=== PATIENT | male | born 1970 | race African-American/Black ===

== ENCOUNTER → 2016-12-25 | Outpatient (CLI) | payer MEDICARE ==
[2016-12-25 16:31] VITALS: BP 138/77; PULSE 62; RESP 16; TEMP 97.9; BMI 34.7
--- NOTE | 2017-01-05 12:16 | P.PN ---
Progress Note - Text DATE OF CONSULTATION: 12/25/2016. CHIEF COMPLAINT: Initial Bariatric Center assessment. HISTORY OF PRESENT ILLNESS: Eduardo Glover a 46-year-old gentleman with a personal history of Jeremy-en-Y gastric bypass performed to [facility]. His highest weight for 5 feet 7-3/4 inches was 420 pounds. This was performed in 2009. His lowest weight was 175 pounds. He comes in today weighing 227 pounds. He has maintained 193 pounds weight loss in the past 7 years. Percent excess weight loss is 74%. Body mass index has been reduced from 64.5 down to 37.8. Overall he has actually regained about 52 pounds from his lowest weight. He reports that at the time of his procedure, within a month of his surgery, he had to leave the [facility] and did not have a structured bariatric follow-up. He actually presented to a local hospital with a bowel obstruction and had required open procedure. Since then he reports over the last 7 years developing new onset tremors of the hands. He also reports troubles with neuropathy. He has been referred to a neurologist. He has had up with bariatric surgeon. He also reports some troubles with his gallbladder whereby he has history of biliary dyskinesia. As a result of his bariatric surgery, he has difficulty obtaining a general surgical evaluation. He also reports prior to his weight loss surgery, he was a diabetic on metformin. This is now resolved. He also has obstructive sleep apnea, which is completely resolved. Initially he was off all blood pressure medications, which he has now restarted. He reports heartburn with certain foods, especially ham and roast beef. He reports after eating he has immediate diarrhea. He has hair loss. He reports poor intake of daily protein. He now presents for further evaluation and management. He also reports lower back pain secondary to herniated discs. PAST MEDICAL HISTORY: 1. Diabetes type 2, resolved. 2. Obstructive sleep apnea resolved. 3. Osteoarthritis of the lower back. 4. Herniated disc of lower back. 5. Hypertension. 6. Neuropathy. 7. Depression. 8. Previous history of bowel obstruction. PAST SURGICAL HISTORY: 1. Laparoscopic Jeremy-en-Y gastric bypass in [place] in 2009. Highest weight of 420 pounds. 2. Open small bowel lysis of adhesions. MEDICATIONS: 1. Multivitamin. 2. Zoloft. 3. Zestril. ALLERGIES: Denies. SOCIAL HISTORY: Denies any active tobacco use. FAMILY HISTORY: Pertinent for morbid obesity including hypertension. Denies any gallbladder disorders. REVIEW OF SYSTEMS: CONSTITUTIONAL: 420 pounds for 5 foot 7 and 3/4-inch frame. Initial body mass index is 64.5. His lowest weight 175 pounds. He has regained 52 pounds. Percent excess weight loss is 74%. Body mass index is 34.8. [place] body weight of 5 foot 7 and quarter inch frame is 158 pounds. Body mass index reduced total BMI points of 30. HEENT: Denies any active troubles with vision or hearing. He denies any active dysphagia. ENDOCRINE: History of diabetes, type II, resolved. Denies any thyroid disorders. RESPIRATORY: Prior history of obstructive sleep apnea now completely resolved. Denies any dyspnea on exertion. No recent pneumonias. CARDIOVASCULAR: Denies any recent chest pain or heart attack. He did have severe hypertension which initially resolved since his surgery; however, now he has been restarted on medication. GASTROINTESTINAL: Reports biliary dyskinesia with a known problematic ejection fraction of his gallbladder. Also reports diarrhea after eating. Protein intake has been suboptimal under 80 grams daily. MUSCULOSKELETAL: He has herniated disc of the lower back. Denies any numbness however, has osteoarthritis in his joints. NEURO: No reports of stroke or seizure disorder. PSYCH: History of depression without suicidal ideation. HEMATOLOGIC: No reports of easy bruising or bleeding. PHYSICAL EXAM: VITAL SIGNS: 97.9, 62, 16, 130/77; 5 feet 7-3/4 inches frame, 227 pounds. Body mass is 34.8. GENERAL: Well-developed male in no acute distress. HEENT: No scleral icterus. Extraocular movements grossly intact. Moist buccal mucosa. Neck is supple without lymphadenopathy. CHEST: Nonlabored respirations. Equal bilateral excursions. CARDIOVASCULAR: Regular rate and rhythm. ABDOMEN: Soft, nontender, nondistended. Well healed upper midline incision with laparoscopic incisions along the upper abdomen. MUSCULOSKELETAL: No clubbing, cyanosis, or edema. NEURO: Cranial nerves II through XII grossly intact. No focal or lateralizing signs. He has resting tremors of the bilateral upper extremities. PSYCH: Appropriate affect. Alert and oriented to person, place, and time. SKIN: On exam his pannus weighed at least 10 pounds and over the pubis by over 6 cm. He has hyperpigmentation consistent with panniculitis. LABS: Labs pending at this time. ASSESSMENT: 1. Morbid obesity due to excess calories. 2. Body mass index reduced from 64.5 down to 34.8. 3. Status post weight regain 52 pounds following Jeremy-en-Y gastric bypass. 4. History of essential tremors. 5. Neuropathy secondary to Vitamin B deficiency. 6. Obstructive sleep apnea resolved. 7. Rvc-[id number] diabetes, resolved. 8. Essential hypertension. 9. Gastroesophageal reflux disease. 10. Dysphagia. 11. Biliary dyskinesia with chronic cholecystitis. 12. Osteoporosis with herniated disc of the lower back. 13. Dietary surveillance and counseling. 14. Panniculitis. 15. Inadequate protein intake. 16. Hair loss. PLAN: 1. On exam his pannus weighed at least 10 pounds and over the pubis by over 6 cm. He has hyperpigmentation consistent with panniculitis. We may evaluate for panniculectomy once his nutritional assessment is resolved. 2. He does report troubles with hair loss and this is also in the form of nutritional deficiencies secondary to inadequate protein intake. I have recommended bariatric metabolic panel. Once he has complete correction of his protein sources including multivitamin then he may consider other options. 3. He has symptomatic biliary dyskinesia for which a laparoscopic cholecystectomy was also reviewed. 4. He may need also upper endoscopy as he reports heartburn especially dysphagia to solid foods. I did review with him this may be signs of gastrojejunal ulcer and/or stricture, which may be evaluated with an upper endoscopy. 5. Recommend evaluation of bariatric dietitian regarding his baseline intake. This will be followed up closely at least for the next month or 2. Thank you very much for this kind consultation.
== END | disposition home or self-care (01) ==
LOC: BARWHC3 15:33
PROVIDERS: ATTEND Surgery Plastic and Reconstructive Surgery
DX: E66.01 Morbid (severe) obesity due to excess calories (principal); E21.1 Secondary hyperparathyroidism, not elsewhere classified; D50.8 Other iron deficiency anemias; E44.0 Moderate protein-calorie malnutrition; E55.9 Vitamin D deficiency, unspecified; K74.1 Hepatic sclerosis; N19 Unspecified kidney failure; K50.90 Crohn's disease, unspecified, without complications; I10 Essential (primary) hypertension; K21.9 Gastro-esophageal reflux disease without esophagitis; R13.10 Dysphagia, unspecified; K82.8 Other specified diseases of gallbladder; K81.1 Chronic cholecystitis; M51.26 Other intervertebral disc displacement, lumbar region; M79.3 Panniculitis, unspecified; M47.896 Other spondylosis, lumbar region; G62.9 Polyneuropathy, unspecified; F32.9 Major depressive disorder, single episode, unspecified; G25.0 Essential tremor; E53.9 Vitamin B deficiency, unspecified; L65.9 Nonscarring hair loss, unspecified; M47.9 Spondylosis, unspecified; M81.0 Age-related osteoporosis without current pathological fracture; Z71.3 Dietary counseling and surveillance; Z51.89 Encounter for other specified aftercare; Z68.34 Body mass index [BMI] 34.0-34.9, adult; Z98.84 Bariatric surgery status; Z79.899 Other long term (current) drug therapy
CPT/HCPCS: 99211

== ENCOUNTER → 2016-12-26 | Outpatient (CLI) | payer MEDICARE ==
[2016-12-26 09:05] LABS: CHCM 31.6; HCT 41.7 % (39.0-53.0); HDW 2.67; Hypochromasia Slight; MCH 26.8 pg (25.0-35.0); MCHC 31.1 g/dL (31.0-37.0); MCV 86.1 fL (80.0-100.0); Mean Platelet Volume 6.2; RBC 4.84 m/uL (4.30-5.90); RDW 14.7 % (11.5-15.5); WBC 5.4 k/uL (3.8-10.6)
[2016-12-26 09:12] LABS: INR 1.1 (<1.1)
[2016-12-26 09:13] LABS: Partial Thromboplastin Time 24.1 sec (22.0-30.0); Prothrombin Time 11.2 sec (9.0-12.0)
[2016-12-26 10:46] LABS: ALT 48 U/L (21-72); AST 35 U/L (17-59); Alkaline Phosphatase 71 U/L (38-126); Anion Gap 9 mmol/L; Blood Urea Nitrogen 26 mg/dL (9-20); Calcium 9.6 mg/dL (8.4-10.2); Carbon Dioxide 27 mmol/L (22-30); Chloride 105 mmol/L (98-107); Cholesterol 181 mg/dL (<200); Glucose 88 mg/dL (74-99); HDL Cholesterol 82 mg/dL (40-60); Iron 71 ug/dL (49-181); Magnesium 1.8 mg/dL (1.6-2.3); Non-African American GFR(MDRD) >60 (>60 ml/min/1.73 sqM); Phosphorous 4.6 mg/dL (2.5-4.5); Potassium 4.8 mmol/L (3.5-5.1); Sodium 141 mmol/L (137-145); Total Bilirubin 0.5 mg/dL (0.2-1.3); Triglycerides 36 mg/dL (<150)
[2016-12-26 11:07] LABS: % Iron Saturation 20.2 % (20-50); Prealbumin 27 mg/dL (18-36); Total Iron Binding Capacity 352 ug/dL (261-462)
[2016-12-26 11:51] LABS: Vitamin B12 708 pg/mL (239-931)
[2016-12-27 08:25] LABS: Hemoglobin A1C 5.9 % (4.2-6.1)
[2016-12-28 22:19] LABS: Selenium 152 mcg/L (63-160)
== END | disposition home or self-care (01) ==
LOC: LABWHC1 08:06
PROVIDERS: ATTEND Surgery Plastic and Reconstructive Surgery
DX: E21.1 Secondary hyperparathyroidism, not elsewhere classified (principal); E89.1 Postprocedural hypoinsulinemia; D50.8 Other iron deficiency anemias; E66.01 Morbid (severe) obesity due to excess calories; K90.89 Other intestinal malabsorption; E55.9 Vitamin D deficiency, unspecified; K74.1 Hepatic sclerosis; N19 Unspecified kidney failure; K50.90 Crohn's disease, unspecified, without complications
CPT/HCPCS: 36415; 80053; 80061; 82306; 82525; 82607; 82728; 82746; 83036; 83540; 83550; 83735; 83970; 84100; 84134; 84255; 84425; 84443; 84590; 84630; 85027; 85610; 85730

== ENCOUNTER → 2017-01-09 | Outpatient (CLI) | payer MEDICARE ==
[2017-01-09 09:10] VITALS: BP 142/75; PULSE 60; RESP 16; TEMP 98.2; BMI 34.2
--- NOTE | 2017-02-27 05:42 | P.PN ---
Progress Note - Text DATE OF SERVICE: 01/09/2017 CHIEF COMPLAINT: Bariatric assessment. HISTORY OF PRESENT ILLNESS: Eduardo Glover is a 46-year-old gentleman with a gastric bypass in 2009. At his height of 5 feet 7-3/4 inches frame he had weighed 420 pounds. Today he comes in weighing 223 pounds. He has maintained 197 pound weight loss. Since his visit with us 2 weeks ago, he has actually lost another 4 pounds. His body mass index has been reduced from 64.5 down of 34.2. Percent excess weight loss is 75%. Separately, he comes in with known history of gallbladder disorder. With his history of gastric bypass, he had some challenges for treatment. Also, he reports history of neuropathy. He has not had a recent bariatric work-up and now presents for further evaluation and management. He also reports some intolerance and dysphagia to solid foods. PAST MEDICAL HISTORY: 1. Diabetes type 2, resolved. 2. Obstructive sleep apnea resolved. 3. Osteoarthritis of the lower back. 4. Herniated disc of lower back. 5. Hypertension. 6. Neuropathy. 7. Depression. 8. Previous history of bowel obstruction. 9. Biliary dyskinesia. PAST SURGICAL HISTORY: 1. Laparoscopic Jeremy-en-Y gastric bypass in [place] in 2009. Highest weight of 420 pounds. 2. Open small bowel lysis of adhesions. MEDICATIONS: 1. Multivitamin. 2. Zoloft. 3. Zestril. ALLERGIES: Denies. SOCIAL HISTORY: Denies any active tobacco use. FAMILY HISTORY: Pertinent for morbid obesity including hypertension. Denies any gallbladder disorders. REVIEW OF SYSTEMS: CONSTITUTIONAL: 420 pounds for 5 foot 7 and 3/4-inch frame. Initial body mass index is 64.5. His lowest weight 175 pounds. Body mass index reduced from 64.5 down of 34.2. Percent excess weight loss is 75%. Additional weight loss of 4 pounds in 2 weeks. [place] body weight of 158 pounds. Total weight loss of 197 pounds. HEENT: Denies any active troubles with vision or hearing. He denies any active dysphagia. ENDOCRINE: History of diabetes, type II, resolved. Denies any thyroid disorders. RESPIRATORY: Prior history of obstructive sleep apnea now completely resolved. Denies any dyspnea on exertion. No recent pneumonias. CARDIOVASCULAR: Denies any recent chest pain or heart attack. He did have severe hypertension which initially resolved since his surgery; however, now he has been restarted on medication. GASTROINTESTINAL: Reports biliary dyskinesia with a known problematic ejection fraction of his gallbladder. Also reports diarrhea after eating. Protein intake has been suboptimal under 80 grams daily. MUSCULOSKELETAL: He has herniated disc of the lower back. Denies any numbness however, has osteoarthritis in his joints. NEURO: No reports of stroke or seizure disorder. PSYCH: History of depression without suicidal ideation. HEMATOLOGIC: No reports of easy bruising or bleeding. PHYSICAL EXAM: VITAL SIGNS: 98.2, 60,16, 142/75, 5 foot 7-3/4 inch frame, 223 pounds. Body mass index 34.2. ABDOMEN: Soft, mild tenderness along epigastrium. No incisional hernia. Moderate size pannus of weight over 10 to 15 pounds. Hyperpigmentation and inflammation consistent with panniculitis. Skin hangs over pubis over 8 cm. GENERAL: Well-developed male in no acute distress. HEENT: No scleral icterus. Extraocular movements grossly intact. Moist buccal mucosa. Neck is supple without lymphadenopathy. CHEST: Nonlabored respirations. Equal bilateral excursions. CARDIOVASCULAR: Regular rate and rhythm. ABDOMEN: Soft, nontender, nondistended. Well healed upper midline incision with laparoscopic incisions along the upper abdomen. MUSCULOSKELETAL: No clubbing, cyanosis, or edema. NEURO: Cranial nerves II through XII grossly intact. No focal or lateralizing signs. He has resting tremors of the bilateral upper extremities. PSYCH: Appropriate affect. Alert and oriented to person, place, and time. LABS: Bariatric metabolic panel was reviewed demonstrating hemoglobin normal at 13. BUN was elevated at 26. Creatinine was normal at 1.1. Phosphorus is elevated at 4.6. Magnesium was low normal at 1.8. HDL was elevated at 82. ASSESSMENT: 1. Morbid obesity due to excess calories, improved. 2. Body mass index reduced from 64.5 down to 34.2. 3. Status post weight regain 52 pounds following Jeremy-en-Y gastric bypass. 4. History of essential tremors. 5. Neuropathy secondary to Vitamin B deficiency. 6. Obstructive sleep apnea resolved. 7. Idx-ubudxgs-ngrnyrfnn diabetes, resolved. 8. Essential hypertension. 9. Gastroesophageal reflux disease. 10. Dysphagia. 11. Biliary dyskinesia with chronic cholecystitis. 12. Osteoarthritis with herniated disc of the lower back. 13. Dietary surveillance and counseling. 14. Panniculitis. 15. Inadequate protein intake. 16. Hair loss. 17. Status post massive weight loss of 197 pounds. 18. Intermittent dysphagia to solid foods. 19. Hyperphosphatemia. PLAN: 1. On review of his laboratory results, he has no nutritional deficiencies which is excellent despite not having a structured bariatric followup in well over 3 to 5 years. 2. On exam, he does have moderate size pannus of between 10 to 15 pounds with hyperemia consistent with panniculitis. Recommend treatment with nystatin powder. 3. With his history of biliary dyskinesia including massive weight loss, I agree with laparoscopic cholecystectomy. With his previous history of open abdominal surgery, will likely need lysis of adhesions. 4. He has history of dysphagia, also recommend upper endoscopy. 5. Continue with a multivitamin in the interim. 6. DVT prophylaxis. 7. Antibiotic prophylaxis. 8. Anticipated postoperative recovery a minimum of 2 weeks.
== END | disposition home or self-care (01) ==
LOC: BARWHC3 08:55
PROVIDERS: ATTEND Surgery Plastic and Reconstructive Surgery
DX: R06.83 Snoring (principal); G47.00 Insomnia, unspecified
CPT/HCPCS: 99211

== ENCOUNTER 2017-01-17 07:03 | Day surgery (SDC) | payer MEDICARE ==
[2017-01-15 14:22] VITALS: BMI 34.0
--- NOTE | 2017-01-16 18:02 | P.PN ---
Progress Note - Text I contacted the patient regarding any questions for his laparoscopic cholecystectomy. His answered. Patient is suspected to be present on day of surgery at approximate 730 in morning.
--- NOTE | 2017-01-17 06:34 | P.GSHP ---
History of Present Illness H&P Date: 01/17/17 CHIEF COMPLAINT: Cholecystitis and GERD HISTORY OF PRESENT ILLNESS: The patient is a 46-year-old male who presents with history of epigastric including right upper quadrant abdominal pain. He underwent diagnostic studies for her gallbladder. Separately his clinical picture is consistent with cholecystitis. Now he presents for surgical intervention and upper endoscopy. PAST MEDICAL HISTORY: Please see list PAST SURGICAL HISTORY: Please see list MEDICATIONS: Please see list ALLERGIES: Denies. SOCIAL HISTORY: No illicit drug use or recent tobacco use FAMILY HISTORY: Pertinent for gallbladder disease REVIEW OF ORGAN SYSTEMS: CONSTITUTIONAL: No reports of fevers or chills. HEENT: Denies any troubles with the vision or hearing. ENDOCRINE: No reports of hypothyroidism. Had diabetes. RESPIRATORY: No recent pneumonias. CARDIOVASCULAR: Denies chest pain or palpitations GI: No blood in stools or constipation. MUSCULOSKELETAL: Has occasional joint pain including back pain. NEURO: No seizure disorders or headaches. No recent stroke. PSYCH: No depression or suicidal ideation. HEMATOLOGIC: No personal or family history of DVTs or pulmonary emboli. PHYSICAL EXAM: VITAL SIGNS: Afebrile vital signs stable GENERAL: Well-developed pleasant male in no acute distress. HEENT: No scleral icterus. Extraocular movements grossly intact. Moist buccal mucosa. NECK: Supple without lymphadenopathy. CHEST: Unlabored respirations. Equal bilateral excursions. CARDIOVASCULAR: Regular rate regular rhythm rhythm. Distal 2+ pulses. ABDOMEN: Soft, nondistended. Tender along the epigastrium and right upper quadrant. MUSCULOSKELETAL: No clubbing, cyanosis, or edema. NEURO :Moves all extremities 4+/5. PSYCH: Alert and oriented to person, place and time. ASSESSMENT: 1. Epigastric and right upper quadrant abdominal pain 2. Chronic cholecystitis 3. GERD. PLAN: 1. Will need a laparoscopic cholecystectomy possible open. Benefits and risks were described. 2. Heparin for DVT prophylaxis 5000 units. 3. Antibiotic prophylaxis. 4. Also will proceed with upper endoscopy. Past Medical History Past Medical History: GERD/Reflux, Hypertension Additional Past Medical History / Comment(s): ABDOMINAL PAIN, NAUSEA, HX OF BACK PAIN, PREVIOUS SLEEP APNEA, PREVIOUS DIABETES, NONE NOW SINCE WEIGHT LOSS, NEUROPATHY, TREMORS, History of Any Multi-Drug Resistant Organisms: None Reported Past Surgical History: Appendectomy, Bariatric Surgery, Orthopedic Surgery, Tonsillectomy Additional Past Surgical History / Comment(s): carpal tunnel surgery right, PEDRO -N-Y 2009 IN [place], right shoulder surgery anastomosis SMALL BOWEL LYSIS OF ADHESIONS R/T SMALL BOWEL OBSTRUCTION Past Anesthesia/Blood Transfusion Reactions: No Reported Reaction Past Psychological History: Depression Smoking Status: Never smoker Past Alcohol Use History: None Reported Past Drug Use History: None Reported - Past Family History Mother Family Medical History: No Reported History Medications and Allergies Home Medications Medication Instructions Recorded Confirmed Type Lisinopril [Zestril] 1 tab PO DAILY 12/25/16 01/15/17 History Multivitamins, Thera [Multivitamin] 1 tab PO DAILY 12/25/16 01/15/17 History Sertraline [Zoloft] 1 tab PO DAILY 12/25/16 01/15/17 History ALPRAZolam [Xanax] 0.5 mg PO DIRECTED PRN 01/15/17 01/15/17 History Allergies Allergy/AdvReac Type Severity Reaction Status Date / Time No Known Allergies Allergy Verified 01/15/17 14:33
[~2017-01-17 07:03] MED LIST: ACETAMINOPHEN IV (For NPO) 1,000 MG in EMPTY BAG 1 BAG IVPB ONE; DEXAMETHASONE SOD PHOSPHATE 10 MG/ML 1 ML VIAL IV ONE; HEPARIN SODIUM,PORCINE 5,000 UNIT/ML 1 ML VIAL SQ ONE; LACTATED RINGERS 1,000 ML IV SCH; MIDAZOLAM 2 MG/2 ML VIAL IV PRN; ONDANSETRON 4 MG/2 ML VIAL IVP ONE; SCOPOLAMINE 1.5MG/72HR PATCH TRANSDERM ONE; ceFAZolin 2 GM in SODIUM CHLORIDE 0.9% 100 ML IVPB ONE
[2017-01-17 07:26] VITALS: TEMP 98
[2017-01-17] MEDS ORDERED: LIDOCAINE 1% 20 ML VIAL (10MG/ML) FOR IV START INTRADERMA ONE (07:33)
[2017-01-17] MEDS ORDERED: NEOSTIGMINE 1 MG/ML 10 ML VIAL ONE (09:03)
[2017-01-17] MEDS ORDERED: LIDOCAINE 1% INJ 10MG/ML (20 ML MDV) ONE (09:03)
[2017-01-17] MEDS ORDERED: ePHEDrine 50 MG/ML 1 ML AMP ONE (09:03)
[2017-01-17] MEDS ORDERED: HYDROmorphone (PF) 1 MG/ML ONE (09:03)
[2017-01-17] MEDS ORDERED: GLYCOPYRROLATE 0.2 MG/ML 2 ML VIAL ONE (09:03)
[2017-01-17] MEDS ORDERED: PROPOFOL 10 MG/ML 20 ML VIAL IV ONE (09:03)
[2017-01-17] MEDS ORDERED: fentaNYL (PF) 50 MCG/ML 2 ML AMP ONE (09:03)
[2017-01-17] MEDS ORDERED: ROCURONIUM BROMIDE 10 MG/ML 10 ML VIAL IV ONE (09:03)
[2017-01-17] MEDS ORDERED: SUCCINYLCHOLINE CHLORIDE 100 MG/5 ML SYR IV ONE (09:03)
[2017-01-17] MEDS ORDERED: MIDAZOLAM 2 MG/2 ML VIAL ONE (09:03)
[2017-01-17] MEDS ORDERED: BUPIVACAIN-EPI 0.25%-1:200,000 30 ML VIAL SQ ONE ×2 (09:23→09:26)
[2017-01-17] MEDS ORDERED: LACTATED RINGERS 1,000 ML IV ONE (10:03)
--- NOTE | 2017-01-17 10:44 | P.PCN ---
Date of Procedure: 01/17/17 Preoperative Diagnosis: Biliary dyskinesia, history of massive weight loss over 200 pounds, status post gastric bypass, epigastric abdominal pain Postoperative Diagnosis: Same, chronic cholecystitis, severe intra-abdominal adhesions greater omentum to anterior abdominal wall and interloop adhesions epigastrium and right upper quadrant, left inguinal hernia, gastric ulcer Procedure(s) Performed: Laparoscopic lysis of adhesions over 1 hour, laparoscopic cholecystectomy, intraoperative esophagogastrojejunoscopy Anesthesia: GETA, local (60 mL) Surgeon: Emily Rodriguez Estimated Blood Loss (ml): 5 Pathology: other (Gallbladder) Condition: stable Disposition: same day Operative Findings: Decompression of the gallbladder, severe intra-abdominal adhesions over 1 hour extensive laparoscopic lysis of adhesions
[2017-01-17] MEDS ORDERED: HYDROcodone/APAP 5-325MG 1 EACH TAB PO PRN (10:48)
[2017-01-17] MEDS ORDERED: PROMETHAZINE 25 MG TAB PO PRN (10:48)
[2017-01-17] MEDS ORDERED: ONDANSETRON 4 MG/2 ML VIAL IVP PRN (10:48)
[2017-01-17] MEDS ORDERED: ALPRAZolam 0.5 MG TAB PO PRN (10:48)
[2017-01-17] MEDS ORDERED: NALOXONE 0.4 MG/ML 1 ML VIAL IV PRN (10:48)
[2017-01-17] MEDS: HYDROmorphone 1 MG/ML 1 ML SYRINGE IVP PRN ×2 (11:24→11:46)
--- NOTE | 2017-01-17 11:30 | P.PN ---
Progress Note - Text To whom it may concern: Eduardo Glover is under my surgical care. He will need time off for recovery through January 24. He may return to work with restrictions of no lifting over 4 pounds until January 31 when he will be free of restrictions. Regards, Emily Rodriguez MD, FACS
--- NOTE | 2017-01-17 11:34 | P.OP ---
Date of Procedure: 01/17/17 Description of Procedure: SURGEON: RANI GARCIA MD SPRING FORGER: None. PREOPERATIVE DIAGNOSES: 1. Chronic Cholecystitis. 2. Symptomatic gallstones. 3. Diabetes type 2, insulin-dependent, controlled. 4. History of massive weight loss over 200 pounds 5. Biliary dyskinesia. 6. Hypertensive cardiomyopathy. 7. Status post gastric bypass 8. BMI 43.5. 9. Epigastric abdominal pain. 10. Intermittent dysphagia to solid foods. POSTOPERATIVE DIAGNOSES: 1. Chronic Cholecystitis. 2. Symptomatic gallstones. 3. Diabetes type 2, insulin-dependent, controlled. 4. History of massive weight loss over 200 pounds 5. Biliary dyskinesia. 6. Hypertensive cardiomyopathy. 7. Status post gastric bypass 8. BMI 43.5. 9. Epigastric abdominal pain. 10. Intermittent dysphagia to solid foods. 11. Severe intra-abdominal adhesions greater omentum to anterior abdominal wall 12. Interloop adhesions along epigastrium and right upper quadrant, 13. Left inguinal hernia 14. Gastric ulcer OPERATION: 1. Laparoscopic lysis of adhesions over 1 hour 2. Laparoscopic cholecystectomy 3. Intraoperative esophagogastrojejunoscopy (Please see separate report.) ANESTHESIA: General with 60 mL 0.25% Marcaine with epinephrine. ESTIMATED BLOOD LOSS: 5 mL. SPECIMENS REMOVED: Gallbladder. COMPLICATIONS: None. INDICATIONS: The patient is a 46-year-old male who presents with chronic cholecystitis, biliary dyskinesia, epigastric abdominal pain and previous gastric bypass. He had additional diagnostic imaging including HIDA scan and ultrasound confirming biliary dyskinesia. Surgical intervention with a laparoscopic cholecystectomy was described at length including injury to the biliary tree, bleeding, infection, need for further surgery. Informed consent was obtained. DESCRIPTION OF THE PROCEDURE: The patient was brought to the operating room, laid in supine position. After general induction, the abdomen was prepped and draped in a standard sterile fashion. Prior to incision, a timeout protocol was confirmed with surgical team regarding patient's name, procedure to be performed including preoperative medications for which he had received heparin 5000 units subcutaneously as well as bilateral SCDs for DVT prophylaxis. A 5 mm laparoscopic trocar entry performed of the left upper quadrant after anesthetizing the skin with local anesthetic. Diagnostic laparoscopy demonstrated moderate adhesions of the epigastrium, midline and lower abdomen. a No small bowel dilatation was encountered. Two 5-mm trochars were placed along the left lateral abdominal wall. The patient was placed in Trendelenburg position with the right side up. Initial attention was brought to the midline whereby using a combination of blunt dissection with a Kittner as well as sharp dissection with a cordless Scalpel and scissors were used to take the omental adhesions off the abdominal wall and pelvis. No enterotomy or colotomy occured. The base of the cecum was without inflammation. The small bowel was investigated from the terminal ileum proximally. Along the ileum and distal jejunum, multiple interloop adhesions were identified and sharply lysed using a laparoscopic scissor. No enterotomies occurred. No evidence of bowel obstruction or small bowel dilatation was found. Next, two 5 mm trocars were placed along the right costal margin followed another 5 mm port along the epigastrium placed under direct localization. The patient was placed in steep reverse Trendelenburg position with the right side up. With a moderate adhesions along the gallbladder, careful dissection using blunt graspers were used. Sonicision was used to divide adhesions. Over 1 hr of careful lysis of adhesions was performed without enterotomies. The liver surface was unremarkable. The gallbladder fundus was retracted over the liver. Initial attention was brought to the infundibulum which was gently retracted in the inferior lateral approach. Using a Kittner, the cystic duct including the cystic artery was carefully skeletonized. An 11 mm port at the left upper quadrant was exchanged for the 5 mm port. Two clips were placed proximally, and 2 clips were placed distally along the cystic duct and then divided using Sonicision. Again care was taken to avoid any injury to the biliary tree as the common bile duct was visualized during this portion of dissection. Next, the cystic artery was clipped twice proximally, once distally and then cauterized and divided using Sonicision. Electro-Bovie cautery was used to remove the gallbladder from the hepatic fossa with decompression of the gallbladder. Hemostasis was checked and found to be adequate. The abdomen was irrigated with 1-liter of normal saline until the aspirant was clear. Along the left pelvis, a left inguinal hernia, indirect without incarceration of 1-cm was identified. The gallbladder was removed from the abdominal cavity using an Endo Catch bag and passed off for further pathological analysis. All instruments and pneumoperitoneum were removed from the abdominal cavity. The fascial defect was less than 8 mm for the 11-mm port site. The rest of incisions were reapproximated using 4-0 Monocryl in an interrupted subcuticular fashion. A total of 60 mL of 0.25% Marcaine with epinephrine was infiltrated to all wounds for postop analgesia. Dermabond was applied to the skin. An intraoperative esophagogastrojejunoscopy was performed. Please see separate operative report. At the end of the procedure, needle, sponge, and instrument count was verified correct by surgical instrument repair specialist. The patient had tolerated the procedure well and was taken to postanesthesia care unit in stable condition. Intraoperative films were discussed and reviewed with the patient's family who were pleased with the level of care. FINDINGS: 1. Decompression of the gallbladder 2. Severe intra-abdominal adhesions greater omentum to epigastrium and lower abdomen over 1 hour extensive laparoscopic lysis of adhesions. 3. Left inguinal hernia, indirect. 4. Gastric ulcer along the gastric pouch.
[2017-01-17] MEDS ORDERED: HYDROcodone/APAP 5-325MG 1 EACH TAB PO ONE (12:29)
[2017-01-17 14:24] VITALS: PULSE 83
[2017-01-17 14:27] VITALS: BP 138/89; RESP 16
[2017-01-17] MEDS ORDERED: TAMSULOSIN 0.4 MG CAP.ER.24H PO STA (15:48)
[2017-01-18] MEDS ORDERED: SERTRALINE 100 MG TAB PO SCH (09:00)
[2017-01-18] MEDS ORDERED: LISINOPRIL 10 MG TAB PO SCH (09:00)
[2017-01-18] MEDS ORDERED: MULTIVITAMINS, THERA 1 EACH TAB PO SCH (12:00)
--- NOTE | 2017-02-16 21:45 | P.PCN ---
Date of Procedure: 01/17/17 Description of Procedure: PREOPERATIVE DIAGNOSIS: Dysphagia. s/p Jeremy-en-y gastric bypass. Nausea with vomiting. Morbid obesity. Diabetes type 2. Epigastric abdominal pain. POSTOPERATIVE DIAGNOSIS: Dysphagia. s/p Jeremy-en-y gastric bypass. Nausea with vomiting. Morbid obesity. Diabetes type 2. Epigastric abdominal pain. Gastric ulcer with recent bleed. OPERATION: Intraoperative esophagogastrojejunoscopy. SURGEON: Emily Rodriguez MD ANESTHESIA: MAC. INDICATIONS: The patient is a 46-year-old male who presents with a history of dysphagia, gastric bypass including epigastric abdominal pain. Benefits and risks of the procedure were described. Informed consent was obtained. DESCRIPTION: After completion of his cholecystectomy, I went to the head of the bed. An Olympus gastroscope was passed along the posterior oropharynx down to the distal esophagus where the squamocolumnar junction was unremarkable. The gastric pouch was entered. The gastrojejunal anastomosis was patent however an acute gastric ulcer was found along the gastric pouch with recent stigmata of bleeding. The scope was advanced up to 60 cm from the incisors into the Jeremy limb. The mucosa of the gastrojejunal anastomosis was intact. No chronic gastrojejunal marginal ulcer was encountered. The GI tract was desufflated. The patient tolerated the procedure well. FINDINGS: Squamocolumnar junction unremarkable. No chronic gastrojejunal ulceration encountered. Gastric ulcer, acute and superficial along gastric pouch. RECOMMENDATIONS: Recommend omeprazole of at least 2 weeks duration.
== END 2017-01-17 16:38 | disposition home or self-care (01) ==
LOC: OR 07:03
PROVIDERS: ATTEND Surgery Plastic and Reconstructive Surgery
DX: K80.10 Calculus of gallbladder with chronic cholecystitis without obstruction (principal); K66.0 Peritoneal adhesions (postprocedural) (postinfection); K25.3 Acute gastric ulcer without hemorrhage or perforation; K82.8 Other specified diseases of gallbladder; K40.90 Unilateral inguinal hernia, without obstruction or gangrene, not specified as recurrent; E11.9 Type 2 diabetes mellitus without complications; I11.9 Hypertensive heart disease without heart failure; Z98.84 Bariatric surgery status; E66.01 Morbid (severe) obesity due to excess calories; Z68.41 Body mass index [BMI] 40.0-44.9, adult; K21.9 Gastro-esophageal reflux disease without esophagitis; F32.9 Major depressive disorder, single episode, unspecified; F39 Unspecified mood [affective] disorder; G47.30 Sleep apnea, unspecified; Z79.899 Other long term (current) drug therapy
CPT/HCPCS: 88304; 49329; 47562; 43235; J2250; J1644; J1100; J2710; J0690; J2405; J2001; J3010; J1170; J0131; J0330; J2704

== ENCOUNTER 2017-01-18 02:02 | Emergency (ER) | payer MEDICARE ==
[2017-01-18 02:27] VITALS: BP 127/71; PULSE 77; RESP 18; TEMP 97.7
--- NOTE | 2017-01-18 03:15 | ED ---
Recheck HPI - General Chief Complaint: Recheck/Abnormal Lab/Rx Stated Complaint: can't urinate post surgery Time Seen by Provider: 01/18/17 02:41 Source: patient, RN notes reviewed Mode of arrival: ambulatory Limitations: no limitations - History of Present Illness Initial Comments: Patient is a 46-year-old male presents to the emergency room for evaluation of urinary retention. Patient states he had a cholecystectomy done by Dr. Rodriguez yesterday. Patient states he was not able to urinate after surgery. Patient states they had to catheterize him. Patient states after these catheterize they told him that if he was still unable to urinate by 2 AM to come to the emergency room. Patient does state he is having abdominal pain after the surgery. Patient denies any redness or drainage from the incision sites. Patient denies fevers or chills. Patient denies chest pain shortness of breath. - Related Data Home Medications Medication Instructions Recorded Confirmed Lisinopril [Zestril] 1 tab PO DAILY 12/25/16 01/17/17 Multivitamins, Thera [Multivitamin] 1 tab PO DAILY 12/25/16 01/17/17 Sertraline [Zoloft] 1 tab PO DAILY 12/25/16 01/17/17 ALPRAZolam [Xanax] 0.5 mg PO DIRECTED PRN 01/15/17 01/17/17 Previous Rx's Medication Instructions Recorded Hydrocodone/Acetaminophen [[place] 1 - 2 each PO Q6HR PRN #60 tab 01/17/17 5-325] Omeprazole 40 mg PO DAILY #30 capsule. 01/17/17 Tamsulosin HCl [Flomax] 0.4 mg PO DAILY #5 cap.er.24h 01/17/17 Allergies Allergy/AdvReac Type Severity Reaction Status Date / Time No Known Allergies Allergy Verified 01/15/17 14:33 Review of Systems ROS Statement: Those systems with pertinent positive or pertinent negative responses have been documented in the HPI. ROS Other: All systems not noted in ROS Statement are negative. Past Medical History Past Medical History: GERD/Reflux, Hypertension Additional Past Medical History / Comment(s): ABDOMINAL PAIN, NAUSEA, HX OF BACK PAIN, PREVIOUS SLEEP APNEA, PREVIOUS DIABETES, NONE NOW SINCE WEIGHT LOSS, NEUROPATHY, TREMORS, History of Any Multi-Drug Resistant Organisms: None Reported Past Surgical History: Appendectomy, Bariatric Surgery, Orthopedic Surgery, Tonsillectomy Additional Past Surgical History / Comment(s): carpal tunnel surgery right, PEDRO -N-Y 2010 IN [place], right shoulder surgery anastomosis SMALL BOWEL LYSIS OF ADHESIONS R/T SMALL BOWEL OBSTRUCTION Past Anesthesia/Blood Transfusion Reactions: No Reported Reaction Past Psychological History: Depression Smoking Status: Never smoker Past Alcohol Use History: None Reported Past Drug Use History: None Reported - Past Family History Mother Family Medical History: No Reported History General Exam - General Exam Comments Initial Comments: Laying in exam room, no acute distress. Limitations: no limitations General appearance: alert, in no apparent distress Head exam: Present: atraumatic, normocephalic, normal inspection Eye exam: Present: normal appearance ENT exam: Present: normal exam Neck exam: Present: normal inspection Respiratory exam: Present: normal lung sounds bilaterally. Absent: respiratory distress Cardiovascular Exam: Present: regular rate, normal rhythm, normal heart sounds GI/Abdominal exam: Present: soft, tenderness (Tenderness on palpating the suprapubic area.), normal bowel sounds, other (No signs of infection, erythema or drainage from incision sites. Mild pain on palpating over incision sites.). Absent: distended, guarding, rebound, rigid Extremities exam: Present: normal inspection Back exam: Present: normal inspection Neurological exam: Present: alert, oriented X3, CN II-XII intact, normal gait Psychiatric exam: Present: normal affect, normal mood Skin exam: Present: warm, dry, intact, normal color. Absent: rash Course Vital Signs 01/18/17 02:23 Temperature 97.7 F Pulse Rate 77 Respiratory 18 Rate Blood Pressure 127/71 O2 Sat by Pulse 96 Oximetry Medical Decision Making - Medical Decision Making Patient is a 46-year-old male presents to the emergency room for evaluation of urinary retention postop cholecystectomy. 900 mL drained and urinary bag after Madrigal catheter placed. Will keep the Madrigal catheter in place and advised patient to follow-up with either his surgeon, primary care provider or urologist. Patient states he understands everything that was discussed with him. Return parameters discussed. Case discussed with Dr. Benson. Disposition Clinical Impression: Postoperative urinary retention, Encounter for Madrigal catheter replacement Narrative: Unable to document clinical impression due to service issues on a computer. Clinical impression: Postoperative urinary retention. Madrigal catheter placement. Disposition: HOME SELF-CARE Condition: Good Instructions: Madrigal Catheter Placement and Care (ED), Urinary Retention in Men (ED) Additional Instructions: Please follow up with surgeon or urologist in 24-48 hours. If any new symptom arises, symptoms worsen or fever develops, return to ER as soon as possible. Referrals: Filippo Brian MD [Primary Care Provider] - 1-2 days Time of Disposition: 03:57
== END 2017-01-18 04:17 | disposition home or self-care (01) ==
LOC: EC 02:02
DX: N99.89 Other postprocedural complications and disorders of genitourinary system (principal); R33.9 Retention of urine, unspecified; F32.9 Major depressive disorder, single episode, unspecified; K21.9 Gastro-esophageal reflux disease without esophagitis; I10 Essential (primary) hypertension; Z90.49 Acquired absence of other specified parts of digestive tract; Z79.899 Other long term (current) drug therapy
CPT/HCPCS: 51702; 99283

== ENCOUNTER 2017-04-11 06:23 | Day surgery (SDC) | payer MEDICARE ==
[2017-04-09 08:41] VITALS: BMI 33.0
[~2017-04-11 06:23] MED LIST changes: -ACETAMINOPHEN IV (For NPO) 1,000 MG in EMPTY BAG 1 BAG IVPB ONE; +HYDROmorphone 1 MG/ML 1 ML SYRINGE IVP PRN
[2017-04-11] MEDS ORDERED: LIDOCAINE 1% 20 ML VIAL (10MG/ML) FOR IV START INTRADERMA ONE (07:13)
--- NOTE | 2017-04-11 07:35 | P.GSHP ---
History of Present Illness H&P Date: 04/11/17 CHIEF COMPLAINT: Inguinal hernia, left. HISTORY OF PRESENT ILLNESS: The patient is a 46-year-old male who presents with a history of swelling and pain along the left groin. He's noted increased swelling including pain of the area. Now he presents for repair of his inguinal hernia. PAST MEDICAL HISTORY: Please see list. PAST SURGICAL HISTORY: Please see list. MEDICATIONS: Please see list. ALLERGIES: Please see list. SOCIAL HISTORY: No illicit drug use FAMILY HISTORY: No reports of Crohn disease or ulcerative colitis. REVIEW OF ORGAN SYSTEMS: CONSTITUTIONAL: No reports of fevers or chills. No reports of weight loss despite prior attempts. GI: Denies any blood in stools or constipation. PHYSICAL EXAM: VITAL SIGNS: Stable GENERAL: Well-developed pleasant male in no acute distress. HEENT: No scleral icterus. Extraocular movements grossly intact. Moist buccal mucosa. NECK: Supple without lymphadenopathy. CHEST: Unlabored respirations. Equal bilateral excursions. CARDIOVASCULAR: Regular rate and rhythm. Distal 2+ pulses. ABDOMEN: Soft, nondistended. No peritoneal signs. Palpable defect of the left groin. MUSCULOSKELETAL: No clubbing, cyanosis, or edema. ASSESSMENT: 1. Inguinal hernia, left and symptomatic. PLAN: 1. Recommend proceeding with a diagnostic laparoscopy with inguinal repair with mesh with possible bilateral approach. 2. Benefits and risks of surgical intervention was discussed including possibility of open technique. 3. May need overnight observation pending anticipated postoperative pain. 4. DVT prophylaxis. 5. Antibiotic prophylaxis. Past Medical History Past Medical History: GERD/Reflux, Hypertension Additional Past Medical History / Comment(s): ABDOMINAL PAIN, NAUSEA, HX OF BACK PAIN, PREVIOUS SLEEP APNEA, PREVIOUS DIABETES, NONE NOW SINCE WEIGHT LOSS, NEUROPATHY, TREMORS, History of Any Multi-Drug Resistant Organisms: None Reported Past Surgical History: Appendectomy, Bariatric Surgery, Orthopedic Surgery, Tonsillectomy Additional Past Surgical History / Comment(s): carpal tunnel surgery right, PEDRO -N-Y 2010 IN [place], right shoulder surgery anastomosis SMALL BOWEL LYSIS OF ADHESIONS R/T SMALL BOWEL OBSTRUCTION, LAP MADAY 01/17/17 Past Anesthesia/Blood Transfusion Reactions: Previous Problems w/ Anesthesia Additional Past Anesthesia/Blood Transfusion Reaction / Comment(s): UNABLE TO URINATE AFTER LAP MADAY 01/17/17 Past Psychological History: Depression Smoking Status: Never smoker Past Alcohol Use History: None Reported Past Drug Use History: None Reported - Past Family History Mother Family Medical History: No Reported History Medications and Allergies Home Medications Medication Instructions Recorded Confirmed Type Lisinopril [Zestril] 10 mg PO HS 12/25/16 04/11/17 History Multivitamins, Thera [Multivitamin] 1 tab PO DAILY 12/25/16 04/11/17 History Sertraline [Zoloft] 100 mg PO HS 12/25/16 04/11/17 History ALPRAZolam [Xanax] 0.5 mg PO DIRECTED PRN 01/15/17 04/11/17 History Omeprazole 40 mg PO HS 04/09/17 04/11/17 History Tamsulosin [Flomax] 0.4 mg PO HS 04/09/17 04/11/17 History Allergies Allergy/AdvReac Type Severity Reaction Status Date / Time No Known Allergies Allergy Verified 04/11/17 06:44 Surgical - Exam Vital Signs Temp Pulse Resp BP Pulse Ox 97 F L 63 16 110/71 96 04/11/17 06:39 04/11/17 06:39 04/11/17 06:39 04/11/17 06:39 04/11/17 06:39
[2017-04-11] MEDS ORDERED: LIDOCAINE 1% INJ 10MG/ML (20 ML MDV) ONE (07:43)
[2017-04-11] MEDS ORDERED: MIDAZOLAM 2 MG/2 ML VIAL ONE (07:43)
[2017-04-11] MEDS ORDERED: fentaNYL (PF) 50 MCG/ML 2 ML AMP ONE (07:43)
[2017-04-11] MEDS ORDERED: ePHEDrine 50 MG/ML 1 ML AMP ONE (07:43)
[2017-04-11] MEDS ORDERED: GLYCOPYRROLATE 0.2 MG/ML 2 ML VIAL ONE (07:43)
[2017-04-11] MEDS ORDERED: ROCURONIUM BROMIDE 10 MG/ML 10 ML VIAL IV ONE (07:43)
[2017-04-11] MEDS ORDERED: PROPOFOL 10 MG/ML 20 ML VIAL IV ONE (07:43)
[2017-04-11] MEDS ORDERED: SUCCINYLCHOLINE CHLORIDE 100 MG/5 ML SYR IV ONE (07:43)
[2017-04-11] MEDS ORDERED: NEOSTIGMINE 1 MG/ML 10 ML VIAL ONE (07:43)
[2017-04-11] MEDS ORDERED: diphenhydrAMINE 50 MG/ML 1 ML VIAL ONE (07:43)
[2017-04-11] MEDS ORDERED: BUPIVACAIN-EPI 0.25%-1:200,000 30 ML VIAL SQ ONE (08:40)
[2017-04-11] MEDS ORDERED: HYDROcodone/APAP 5-325MG 1 EACH TAB PO PRN (09:11)
[2017-04-11] MEDS ORDERED: ONDANSETRON 4 MG/2 ML VIAL IVP PRN (09:11)
[2017-04-11] MEDS ORDERED: NALOXONE 0.4 MG/ML 1 ML VIAL IV PRN (09:11)
[2017-04-11] MEDS ORDERED: TAMSULOSIN 0.4 MG CAP.ER.24H PO STA (09:14)
[2017-04-11 09:20] VITALS: TEMP 97.6
--- NOTE | 2017-04-11 09:21 | P.OP ---
Date of Procedure: 04/11/17 Preoperative Diagnosis: Postoperative Diagnosis: Procedure(s) Performed: Implants: Indications for Procedure: Operative Findings: Description of Procedure: SURGEON: EMILY RODRIGUEZ MD CONSTRUCTION TEACHER: NONE. PREOPERATIVE DIAGNOSIS: 1. No history of inguinal hernia. 2. Left groin pain. 3. Obesity, BMI 33. 4. Left groin swelling. 5. History of obstructive uropathy. 6. History of gastric bypass. POSTOPERATIVE DIAGNOSES: 1. No history of inguinal hernia. 2. Left groin pain. 3. Obesity, BMI 33. 4. Left groin swelling. 5. History of obstructive uropathy. 6. History of gastric bypass. OPERATION: 1. Laparoscopic exploration, left inguinal area. 2. Laparoscopic repair via transabdominal approach, left inguinal hernia using Ventral ST mesh, 11.4 cm. 3. Excision of left inguinal canal lipoma. IMPLANTS: Ventral ST mesh, 11.4 cm, bilateral groin. ANESTHESIA: General with 60 mL 0.25% Marcaine with epinephrine. ESTIMATED BLOOD LOSS: 5 mL. SPECIMENS: Left inguinal contents. COMPLICATIONS: None. INDICATIONS: The patient is a 46-year-old male who has history of left groin pain including previous history of inguinal hernia repair along the right side. He reported left inguinal pain including swelling. Surgical options were discussed including open versus laparoscopic technique and he elected for laparoscopic technique. Benefits and risks including bleeding, infection, recurrence, injury to the vas deferens, sterility, chronic groin pain, possible orchiectomy as well as placement of mesh were described. Informed consent was obtained. DESCRIPTION: The patient was brought into the operating room, laid in supine position. After general induction, a Madrigal catheter was placed and the abdomen was prepped and draped in standard sterile fashion and placement of [place]an draping. Prior to incision, a timeout protocol was confirmed with surgical team regarding the patient's name including procedures to be performed. A bilateral groin and inguinal block was performed using Exparel with Sensorcaine epinephrine and normal saline mixture. Via the left upper abdomen a 0 degree 5 mm laparoscopic trocar entry was performed after anesthetizing the skin with Exparel mixture and incised using a #11 blade. An optical view trocar entry was performed. The patient tolerated insufflation to 15 mm Hg pressure. Diagnostic laparoscopy demonstrated left inguinal hernia, indirect. The right groin was unremarkable. Next, one 5 mm trocar and one 11-mm trocar were placed along the right lateral abdominal wall. No recurrent inguinal hernia was identified along the right. No large inguinal defect was found along the left side. Using Bovie cautery, the left inguinal peritoneum was scored for exploration for spermatic cord including groin lipoma for his pain. The left groin was explored and a lipoma including inguinal groin adenopathy was identified. The inguinal hernia contents were dissected and removed as specimen. Using an Endo stitch and 2-0 Surgidac, the peritoneal defect of the left inguinal hernia site was closed using a pursestring suture of 2-0 Surgidac with a Lapra-Ty. The defect was found to be completely closed after removal of the external pressure along the left groin. As an onlay, the inguinal hernia repair was reinforced using 11.[address] mesh by [employer]ius App. The mesh was cut in half and entered into the abdominal cavity. The mesh was oriented onto the left groin. Sorbafix tackers were placed along the periphery of the mesh. At the inferior portion of the mesh, tackers were avoid to prevent injury to the neurovascular structures. The inguinal hernia sac was removed from the abdominal cavity using using a 10 mm Endo Catch bag. The 11-mm port site fascial defect was oversewn using a Son Johnson and 0- Vicryl. All instruments and pneumoperitoneum were removed from the abdominal cavity. The bilateral groin and scrotal subcutaneous emphysema had resolved completely with removal of the tie along the scrotum. Hemostasis was excellent throughout the case. All instruments and pneumoperitoneum were evacuated from the abdominal cavity. The port sites were infiltrated using local anesthetic. Left inguinal field block was also placed with local anesthetic. The incisions were reapproximated using 4-0 Monocryl in an interrupted subcuticular fashion. Dermabond was applied to the skin. At the end of the procedure, the needle sponge and instrument count had been verified correct by surgical aide. The patient had tolerated the procedure well and was taken to the postanesthesia care unit in stable condition. The Madrigal catheter was removed. FINDINGS: 1. No recurrent inguinal hernia along the right side. 2. Incarcerated left inguinal lipoma of the cord excised. Plan - Discharge Summary New Discharge Prescriptions: Hydrocodone/Acetaminophen [[place] 5-325] 1 - 2 each PO Q6HR PRN #60 tab PRN Reason: Pain Discharge Medication List Lisinopril [Zestril] 10 mg PO HS 12/25/16 [History] Multivitamins, Thera [Multivitamin] 1 tab PO DAILY 12/25/16 [History] Sertraline [Zoloft] 100 mg PO HS 12/25/16 [History] ALPRAZolam [Xanax] 0.5 mg PO DIRECTED PRN 01/15/17 [History] Omeprazole 40 mg PO HS 04/09/17 [History] Tamsulosin [Flomax] 0.4 mg PO HS 04/09/17 [History] Hydrocodone/Acetaminophen [[place] 5-325] 1 - 2 each PO Q6HR PRN #60 tab 04/11/17 [Rx] Follow up Appointment(s)/Referral(s): Emily Rodriguez MD [STAFF PHYSICIAN] - 04/29/17 Patient Instructions/Handouts: Laparoscopic Herniorrhaphy (DC) Discharge Disposition: HOME SELF-CARE
[2017-04-11 10:17] VITALS: RESP 18
[2017-04-11] MEDS ORDERED: HYDROcodone/APAP 5-325MG 1 EACH TAB PO ONE (10:32)
[2017-04-11 10:34] VITALS: BP 116/72; PULSE 86
== END 2017-04-11 11:58 | disposition home or self-care (01) ==
LOC: OR 06:23
PROVIDERS: ATTEND Surgery Plastic and Reconstructive Surgery
DX: K40.90 Unilateral inguinal hernia, without obstruction or gangrene, not specified as recurrent (principal); D17.5 Benign lipomatous neoplasm of intra-abdominal organs; K21.9 Gastro-esophageal reflux disease without esophagitis; I10 Essential (primary) hypertension; Z98.84 Bariatric surgery status; E66.9 Obesity, unspecified; Z68.33 Body mass index [BMI] 33.0-33.9, adult; Z79.899 Other long term (current) drug therapy
CPT/HCPCS: 88305; 49650; C1781 ×2; J2250; J1200; J1644; J1100; J2710; J0690; J2405; J2001; J3010; J0330; J2704

== ENCOUNTER → 2017-04-24 | Outpatient (CLI) | payer MEDICARE ==
[2017-04-24 10:21] VITALS: BP 137/82; PULSE 84; RESP 14; TEMP 98.7; BMI 35.7
--- NOTE | 2017-04-24 10:37 | P.PN ---
Progress Note - Text To whom it may concern: Ruiz Glover is under my surgical care. He needs complete recovery prior to return to work. He may return to work on, May 12 without restrictions. Sincerely, Emily Rodriguez MD, FACS
--- NOTE | 2017-05-24 18:00 | P.PN ---
Progress Note - Text DATE OF SERVICE: 04/24/2017 CHIEF COMPLAINT: Bariatric assessment. HISTORY OF PRESENT ILLNESS: Eduardo Glover is a 46-year-old gentleman with a gastric bypass in 2009. At his height of 5 feet 7-3/4 inches frame he had weighed 420 pounds. Today he comes in weighing 233 pounds. He has maintained 187 pound weight loss. Since his last visit in 3 months, he has gained 10 pounds. His body mass index has been reduced from 64.5 down of 35.7. Percent excess weight loss is 71%. He had just completed laparoscopic inguinal hernia repair. Now he presents for follow-up. He denies any urinary retention. He still complains of groin discomfort. PHYSICAL EXAM: VITAL SIGNS: 5 foot 7-3/4 inch frame, 233 pounds. Body mass index 35.7. Vital Signs Temp 98.7 F 04/24/17 10:08 Pulse 84 04/24/17 10:08 Resp 14 04/24/17 10:08 BP 137/82 04/24/17 10:08 Pulse Ox ABDOMEN: Soft, mild groin tenderness. Moderate size pannus of weight over 10 to 15 pounds. Skin hangs over pubis over 8 cm with findings of panniculitis. Laparoscopic sites clean, dry, and intact. GENERAL: Well-developed male in no acute distress. HEENT: No scleral icterus. Extraocular movements grossly intact. Moist buccal mucosa. Neck is supple without lymphadenopathy. CHEST: Nonlabored respirations. Equal bilateral excursions. CARDIOVASCULAR: Regular rate and rhythm. MUSCULOSKELETAL: No clubbing, cyanosis, or edema. NEURO: Cranial nerves II through XII grossly intact. No focal or lateralizing signs. He has resting tremors of the bilateral upper extremities. PSYCH: Appropriate affect. Alert and oriented to person, place, and time. ASSESSMENT: 1. Morbid obesity due to excess calories, improved. 2. Body mass index reduced from 64.5 down to 35.7. 3. Status post inguinal hernia repair. 4. Panniculitis. 5. Status post massive weight loss of 187 pounds. PLAN: 1. Recommend additional weeks of recovery given his heavy lifting on the job. 2. On exam, he has history of panniculitis. He will benefit from a panniculectomy. 3. Recommend continue Flomax postop.
== END | disposition home or self-care (01) ==
LOC: BARWHC3 10:01
PROVIDERS: ATTEND Surgery Plastic and Reconstructive Surgery
DX: Z48.815 Encounter for surgical aftercare following surgery on the digestive system (principal); Z98.84 Bariatric surgery status
CPT/HCPCS: 99211

== ENCOUNTER → 2017-05-23 | Outpatient (CLI) | payer MEDICARE | END | disposition home or self-care (01) | LOC: LABMAIN 18:03 | PROVIDERS: ATTEND Family Medicine | DX: R10.9 Unspecified abdominal pain (principal); R11.0 Nausea | CPT/HCPCS: 36415; 82150 ==

== ENCOUNTER 2019-05-12 09:18 | Emergency (ER) | payer MEDICARE ==
[2019-05-12 09:23] VITALS: RESP 18
[2019-05-12] MEDS ORDERED: SODIUM CHLORIDE 0.9% 1,000 ML IV STA (10:03)
[2019-05-12] MEDS ORDERED: ORPHENADRINE 30 MG/ML 2 ML VIAL IVP STA (10:03)
[2019-05-12] MEDS ORDERED: KETOROLAC 30 MG/ML 1 ML VIAL IVP STA (10:03)
--- NOTE | 2019-05-12 10:48 | ED ---
Back Pain HPI - General Chief Complaint: Back Pain/Injury Stated Complaint: lower back pain Time Seen by Provider: 05/12/19 09:42 Source: patient, RN notes reviewed Mode of arrival: ambulatory Limitations: no limitations - History of Present Illness Initial Comments: This a 48-year-old male presents emergency Department with multiple complaints. Patient states that his been having ongoing low back pain which, unbearable. Patient states that he does have a history of herniated disc. Patient denies radiating pain. Patient denies any bowel bladder incontinence or retention. Patient states that that he has muscle cramps diffusely. Patient states that he does admit he does not hydrated well. Patient states that years ago he has severe low back pain but states is related to his obesity. Patient states he last 300 pounds. Patient denies any current chest pain or shortness of breath. Patient states that a few weeks ago he had black stools but that resolved. Patient is related to Pepto-Bismol. Patient has no dysuria no hematuria. Patie nt denies any focal weakness. - Related Data Home Medications Medication Instructions Recorded Confirmed Lisinopril [Zestril] 10 mg PO HS 12/25/16 05/12/19 Multivitamins, Thera [Multivitamin] 1 tab PO DAILY 12/25/16 05/12/19 Sertraline [Zoloft] 100 mg PO HS 12/25/16 05/12/19 Tamsulosin [Flomax] 0.4 mg PO HS 04/09/17 05/12/19 Albuterol Inhaler [Ventolin Hfa 2 puff INHALATION RT-QID PRN 05/12/19 05/12/19 Inhaler] Ibuprofen [Motrin Ib] 400 mg PO Q8H 05/12/19 05/12/19 Ranitidine HCl [Zantac] 150 mg PO DAILY 05/12/19 05/12/19 Sildenafil Citrate [Sildenafil] 20 mg PO DIRECTED PRN 05/12/19 05/12/19 Previous Rx's Medication Instructions Recorded Cyclobenzaprine [Flexeril] 10 mg PO TID PRN #15 tab 05/12/19 Allergies Allergy/AdvReac Type Severity Reaction Status Date / Time No Known Allergies Allergy Verified 05/12/19 09:38 Review of Systems ROS Statement: Those systems with pertinent positive or pertinent negative responses have been documented in the HPI. ROS Other: All systems not noted in ROS Statement are negative. Past Medical History Past Medical History: GERD/Reflux, Hypertension Additional Past Medical History / Comment(s): HX OF BACK PAIN, PREVIOUS SLEEP APNEA, PREVIOUS DIABETES, NONE NOW SINCE WEIGHT LOSS, NEUROPATHY, TREMORS History of Any Multi-Drug Resistant Organisms: None Reported Past Surgical History: Appendectomy, Bariatric Surgery, Hernia Repair, Orthope dic Surgery, Tonsillectomy Additional Past Surgical History / Comment(s): carpal tunnel surgery right, PEDRO-N-Y 2009 IN [place], right shoulder surgery anastomosis SMALL BOWEL LYSIS OF ADHESIONS R/T SMALL BOWEL OBSTRUCTION, LAP MADAY 01/17/17, Left Inguinal hernia repair 04/11/17 Past Anesthesia/Blood Transfusion Reactions: Previous Problems w/ Anesthesia Additional Past Anesthesia/Blood Transfusion Reaction / Comment(s): UNABLE TO URINATE AFTER LAP MADAY 01/17/17 Past Psychological History: Depression Smoking Status: Never smoker Past Alcohol Use History: None Reported Past Drug Use History: None Reported - Past Family History Mother Family Medical History: No Reported History General Exam Limitations: no limitations General appearance: alert, in no apparent distress Head exam: Present: atraumatic, normocephalic, normal inspection Eye exam: Present: normal appearance, PERRL, EOMI. Absent: scleral icterus, conjunctival injection, periorbital swelling ENT exam: Present: normal exam, normal oropharynx, mucous membranes moist Neck exam: Present: normal inspection, full ROM. Absent: tenderness, meningismus, lymphadenopathy Respiratory exam: Present: normal lung sounds bilaterally. Absent: respiratory distress, wheezes, rales, rhonchi, stridor Cardiovascular Exam: Present: regular rate, normal rhythm, normal heart sounds. Absent: systolic murmur, diastolic murmur, rubs, gallop, clicks GI/Abdominal exam: Present: soft, normal bowel sounds. Absent: distended, tenderness, guarding, rebound, rigid Extremities exam: Present: normal inspection, full ROM, normal capillary refill, other (Lower extremity strength equal bilaterally, neurovascular intact). Absent: tenderness, pedal edema, joint swelling, calf tenderness Back exam: Present: full ROM, tenderness, paraspinal tenderness. Absent: vertebral tenderness Neurological exam: Present: alert, oriented X3, CN II-XII intact, reflexes normal. Absent: motor sensory deficit Skin exam: Present: warm, dry, intact, normal color. Absent: rash Course Vital Signs 05/12/19 09:20 Temperature 99.3 F Pulse Rate 113 H Respiratory 18 Rate Blood Pressure 106/61 O2 Sat by Pulse 98 Oximetry Medical Decision Making - Medical Decision Making 48-year-old male presents to emergency room for low back pain. Patient has evidence of anterolisthesis with no neurological deficits. Patient will follow- up with Dr. Mills PCP. Patient has underlying anemia though no active bleeding at this time. Patient will be discharged return parameters were discussed. Patient agrees to follow-up patient does not want to be admitted. - Lab Data Result diagrams: 05/12/19 10:55 05/12/19 10:55 Lab Results 05/12/19 05/12/19 05/12/19 Range/Units 10:55 10:55 10:55 WBC 6.1 (3.8-10.6) k/uL RBC 3.34 L (4.30-5.90) m/uL Hgb 9.1 L (13.0-17.5) gm/dL Hct 29.2 L (39.0-53.0) % MCV 87.6 (80.0-100.0) fL MCH 27.3 (25.0-35.0) pg MCHC 31.2 (31.0-37.0) g/dL RDW 15.6 H (11.5-15.5) % Plt Count 381 (150-450) k/uL Neutrophils % 61 % Lymphocytes % 24 % Monocytes % 10 % Eosinophils % 2 % Basophils % 1 % Neutrophils # 3.7 (1.3-7.7) k/uL Lymphocytes # 1.5 (1.0-4.8) k/uL Monocytes # 0.6 (0-1.0) k/uL Eosinophils # 0.1 (0-0.7) k/uL Basophils # 0.1 (0-0.2) k/uL Hypochromasia Slight Sodium 138 (137-145) mmol/L Potassium 4.7 (3.5-5.1) mmol/L Chloride 107 (98-107) mmol/L Carbon Dioxide 27 (22-30) mmol/L Anion Gap 4 mmol/L BUN 23 H (9-20) mg/dL Creatinine 1.09 (0.66-1.25) mg/dL Est GFR (CKD-EPI)AfAm >90 (>60 ml/min/1.73 sqM) Est GFR (CKD-EPI)NonAf 79 (>60 ml/min/1.73 sqM) Glucose 80 (74-99) mg/dL Calcium 8.8 (8.4-10.2) mg/dL Magnesium 2.1 (1.6-2.3) mg/dL Total Bilirubin 0.4 (0.2-1.3) mg/dL AST 29 (17-59) U/L ALT 31 (21-72) U/L Alkaline Phosphatase 68 (38-126) U/L Total Protein 6.1 L (6.3-8.2) g/dL Albumin 3.6 (3.5-5.0) g/dL Amylase 171 H (30-110) U/L Lipase 152 (23-300) U/L Urine Color Yellow Urine Appearance Clear (Clear) Urine pH 6.0 (5.0-8.0) Ur Specific Collins 1.012 (1.001-1.035) Urine Protein Negative (Negative) Urine Glucose (UA) Negative (Negative) Urine Ketones Negative (Negative) Urine Blood Negative (Negative) Urine Nitrite Negative (Negative) Urine Bilirubin Negative (Negative) Urine Urobilinogen <2.0 (<2.0) mg/dL Ur Leukocyte Esterase Negative (Negative) Disposition Clinical Impression: Lumbar back pain, Anemia Disposition: HOME SELF-CARE Condition: Stable Instructions (If sedation given, give patient instructions): Acute Low Back Pain (ED) Additional Instructions: Please return to the Emergency Department if symptoms worsen or any other concerns. Prescriptions: Cyclobenzaprine [Flexeril] 10 mg PO TID PRN #15 tab PRN Reason: Muscle Spasm Is patient prescribed a controlled substance at d/c from ED?: No Referrals: Filippo Brian MD [Primary Care Provider] - 1-2 days Keiko Solano DO [Doctor of Osteopathic Medicine] - 1-2 days Time of Disposition: 12:01
--- NOTE | 2019-05-12 11:26 | XR ---
EXAMINATION TYPE: XR lumbosacral spine min 4V DATE OF EXAM: 05/12/2019 COMPARISON: NONE HISTORY: 48-year-old male right-sided lower back pain TECHNIQUE: 5 views FINDINGS: Hypertrophic facet arthropathy lower lumbar spine. There is grade 2 or grade 3 anterolisthesis at L5- S1 with associated advanced discogenic degenerative change. Vertebral body heights are preserved. Cho lecystectomy clips. IMPRESSION: 1. Grade 2 versus grade 3 anterolisthesis at L5-S1 likely secondary to underlying L5 pars defects. 2. Associated advanced disc/endplate degenerative change. 3. Facet arthropathy lower lumbar spine.
[2019-05-12 11:33] LABS: Basophils # (A) 0.1 k/uL (0-0.2); Basophils % (A) 1 %; Eosinophils # (A) 0.1 k/uL (0-0.7); Eosinophils % (A) 2 %; HCT 29.2 % (39.0-53.0); HGB 9.1 gm/dL (13.0-17.5); Hypochromasia Slight; Lymphocytes # (A) 1.5 k/uL (1.0-4.8); Lymphocytes % (A) 24 %; MCH 27.3 pg (25.0-35.0); MCHC 31.2 g/dL (31.0-37.0); MCV 87.6 fL (80.0-100.0); Mean Platelet Volume 6.8; Monocytes # (A) 0.6 k/uL (0-1.0); Monocytes % (A) 10 %; Neutrophils # (A) 3.7 k/uL (1.3-7.7); Neutrophils % (A) 61 %; Platelet Count 381 k/uL (150-450); RBC 3.34 m/uL (4.30-5.90); RDW 15.6 % (11.5-15.5); WBC 6.1 k/uL (3.8-10.6)
[2019-05-12 11:38] LABS: ALT 31 U/L (21-72); AST 29 U/L (17-59); African American GFR (CKD) >90 (>60 ml/min/1.73 sqM); Albumin 3.6 g/dL (3.5-5.0); Alkaline Phosphatase 68 U/L (38-126); Amylase 171 U/L (30-110); Anion Gap 4 mmol/L; Appearance,Urine Clear (Clear); Bilirubin,Urine Negative (Negative); Blood Urea Nitrogen 23 mg/dL (9-20); Blood,Urine Negative (Negative); Calcium 8.8 mg/dL (8.4-10.2); Carbon Dioxide 27 mmol/L (22-30); Chloride 107 mmol/L (98-107); Color,Urine Yellow; Glucose 80 mg/dL (74-99); Glucose,Urine (UA) Negative (Negative); Ketones,Urine Negative (Negative); Leukocyte Esterase,Urine Negative (Negative); Lipase 152 U/L (23-300); Magnesium 2.1 mg/dL (1.6-2.3); Nitrite,Urine Negative (Negative); Potassium 4.7 mmol/L (3.5-5.1); Protein,Urine Negative (Negative); Sodium 138 mmol/L (137-145); Specific Gravity,Urine 1.012 (1.001-1.035); Total Bilirubin 0.4 mg/dL (0.2-1.3); Total Protein 6.1 g/dL (6.3-8.2); Urobilinogen,Urine <2.0 mg/dL (<2.0)
[2019-05-12] MEDS ORDERED: ACET/COD 300 MG/30 MG STARTER PACK 6 TAB BTL PO STA (12:01)
[2019-05-12 12:48] VITALS: BP 135/80; PULSE 92; TEMP 99
== END 2019-05-12 12:47 | disposition home or self-care (01) ==
LOC: EC 09:18
DX: M43.17 Spondylolisthesis, lumbosacral region (principal); D64.9 Anemia, unspecified; K21.9 Gastro-esophageal reflux disease without esophagitis; I10 Essential (primary) hypertension; F32.9 Major depressive disorder, single episode, unspecified; Z87.39 Personal history of other diseases of the musculoskeletal system and connective tissue; Z53.29 Procedure and treatment not carried out because of patient's decision for other reasons; Z79.1 Long term (current) use of non-steroidal anti-inflammatories (NSAID); Z79.899 Other long term (current) drug therapy
CPT/HCPCS: 36415; 80053; 82150; 83690; 83735; 85025; 81003; 72110; 99284; 96374; 96375; 96361; J2360; J1885

== ENCOUNTER 2019-09-02 07:34 | Day surgery (SDC) | payer MEDICARE ==
[2019-09-01 09:26] VITALS: BMI 34.4
[~2019-09-02 07:34] MED LIST changes: -DEXAMETHASONE SOD PHOSPHATE 10 MG/ML 1 ML VIAL IV ONE; -HEPARIN SODIUM,PORCINE 5,000 UNIT/ML 1 ML VIAL SQ ONE; -HYDROmorphone 1 MG/ML 1 ML SYRINGE IVP PRN; -MIDAZOLAM 2 MG/2 ML VIAL IV PRN; -ONDANSETRON 4 MG/2 ML VIAL IVP ONE; -SCOPOLAMINE 1.5MG/72HR PATCH TRANSDERM ONE; -ceFAZolin 2 GM in SODIUM CHLORIDE 0.9% 100 ML IVPB ONE
[2019-09-02 08:04] VITALS: TEMP 97
[2019-09-02] MEDS ORDERED: LIDOCAINE 1% 20 ML VIAL (10MG/ML) FOR IV START INTRADERMA ONE (08:04)
[2019-09-02] MEDS ORDERED: LIDOCAINE 1% INJ 10MG/ML (20 ML MDV) ONE (08:23)
[2019-09-02] MEDS ORDERED: PROPOFOL 10 MG/ML 20 ML VIAL IV ONE (08:23)
[2019-09-02 09:05] VITALS: RESP 18
--- NOTE | 2019-09-02 09:07 | P.PCN ---
Date of Procedure: 09/02/19 Description of Procedure: Brief history: Patient is a pleasant scheduled for an elective upper endoscopy as well as colonoscopy as a part of evaluation of iron deficiency anemia. Patient reports last colonoscopy 10 years ago and normal. 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 He reports a history of ulcers. Procedure performed: Esophagogastroduodenoscopy with biopsy Colonoscopy with polypectomy Estimated blood loss: Minimal. Preoperative diagnosis: Iron deficiency anemia Anesthesia: [facility] Procedure: After informed consent was obtained from the patient was brought into the endoscopy unit and IV sedation was administered by anesthesia under continuous monitoring. Initially upper endoscopy was done. The Olympus GF 190 video endoscope was inserted inserted into the mouth and esophagus intubated without any difficulty and was gradually advanced into the stomach and and small bowel and carefully examined. The patient had anatomy consistent with prior Jeremy-en-Y surgery. The afferent and a friend limbs of the Jeremy-en-Y were intubated and examined and appeared normal with biopsies of the small bowel taken. The gastric remnant appeared normal with mild irritation around the anastomotic site without ulceration with biopsies of the gastric remnant taken. The scope was then withdrawn into the esophagus. The GE junction was located at 38 cm to the incisors. It appeared regular with no erythema erosions or ulcerations. Rest of the esophagus appeared normal. Patient tolerated the procedure well. At this time the patient continued to remain sedation. Initial digital rectal examination was normal. Olympus CF 190 video colonoscope was then inserted into the rectum and gradually advanced to the cecum without any difficulty. Careful examination was performed as the scope was gradually being withdrawn. The prep was excellent. The cecum, ascending colon, transverse colon, descending colon, sigmoid colon and rectum appeared normal. Diminutive rectal polyp meassuring 2 mm removed from the rectum with cold forceps. Retroflexion was performed in the rectum and no lesions were noted. Patient tolerated the procedure well. Impression: 1. Jeremy-en-Y gastric bypass, with no ulcers, or pathology to explain anemia. Biopsies taken of the gastric remnant and small bowel. 2. Normal-appearing colon from rectum to cecum with diminutive 2 mm rectal polyp removed with cold forceps. Recommendations: Findings of this examination were discussed with the patient as well as his . Okay to resume diet. Continue iron supplementation. Follow up with gastroenterology as previously scheduled. Recommend repeat colonoscopy in 5 years for polyps pending pathology from polypectomy.
[2019-09-02 09:21] VITALS: BP 109/75; PULSE 63
== END 2019-09-02 09:55 | disposition home or self-care (01) ==
LOC: ORWHC2ENDO 07:34
PROVIDERS: ATTEND Internal Medicine
DX: K29.50 Unspecified chronic gastritis without bleeding (principal); D12.8 Benign neoplasm of rectum; D50.9 Iron deficiency anemia, unspecified; I10 Essential (primary) hypertension; J42 Unspecified chronic bronchitis; F32.9 Major depressive disorder, single episode, unspecified; K21.9 Gastro-esophageal reflux disease without esophagitis; Z79.82 Long term (current) use of aspirin; Z79.899 Other long term (current) drug therapy; Z88.0 Allergy status to penicillin; Z98.84 Bariatric surgery status; Z90.3 Acquired absence of stomach [part of]; Z90.49 Acquired absence of other specified parts of digestive tract; Z90.89 Acquired absence of other organs; Z98.890 Other specified postprocedural states
CPT/HCPCS: 88305; 45380; 43239; J2001; J2704; 45385

== ENCOUNTER 2019-11-10 10:55 | Day surgery (SDC) | payer MEDICARE ==
[2019-11-09 10:11] VITALS: BMI 34.4
[~2019-11-10 10:55] MED LIST changes: +DEXAMETHASONE SOD PHOSPHATE 10 MG/ML 1 ML VIAL IV ONE; +HYDROmorphone 0.5 MG/0.5 ML SYRINGE IVP PRN; +MIDAZOLAM 2 MG/2 ML VIAL IV PRN; +ONDANSETRON 4 MG/2 ML VIAL IVP ONE; +SCOPOLAMINE 1.5MG/72HR PATCH TRANSDERM ONE
[2019-11-10] MEDS ORDERED: LIDOCAINE 1% 20 ML VIAL (10MG/ML) FOR IV START INTRADERMA ONE (11:30)
[2019-11-10 11:53] LABS: Glucose,Whole Blood 95 mg/dL (75-99)
[2019-11-10] MEDS ORDERED: BUPIVACAIN-EPI 0.25%-1:200,000 30 ML VIAL SQ ONE (12:45)
[2019-11-10] MEDS ORDERED: PHENYLEPHRINE-0.9% NACL SYG 1 MG/10 ML SYRINGE ONE (13:11)
[2019-11-10] MEDS ORDERED: fentaNYL (PF) 50 MCG/ML 2 ML AMP ONE (13:11)
[2019-11-10] MEDS ORDERED: PROPOFOL 10 MG/ML 20 ML VIAL IV ONE (13:11)
[2019-11-10] MEDS ORDERED: LIDOCAINE 1% INJ 10MG/ML (20 ML MDV) ONE (13:11)
[2019-11-10] MEDS ORDERED: ROPIVACAINE 5 MG/ML 30 ML VIAL ONE (13:11)
[2019-11-10] MEDS ORDERED: SUCCINYLCHOLINE CHLORIDE VIAL 200 MG/10 ML VIAL IV ONE (13:11)
[2019-11-10] MEDS ORDERED: DEXAMETHASONE SOD PHOSPHATE 4 MG/ML 1 ML VIAL ONE (13:11)
[2019-11-10] MEDS ORDERED: MIDAZOLAM 2 MG/2 ML VIAL ONE (13:11)
[2019-11-10] MEDS ORDERED: ePHEDrine SULFATE/0.9% NACL/PF 50 MG/5 ML SYRINGE IV ONE (13:11)
--- NOTE | 2019-11-10 13:37 | P.ANPRN ---
Procedure Note - Anesthesia - Nerve Block Performed Right Interscalene Single Time Out Performed: Yes Date of Procedure: 11/10/19 Procedure Start Time: 12:47 Procedure Stop Time: 12:59 Location of Patient: PreOp Indication: Acute Post-Operative Pain, Requested by Surgeon Specifically requested for management of pain by DrViet: Yaya Gandara Sedation Type: Sedate with meaningful contact maintained Preparation: Sterile Prep Position: Supine Catheter: None Needle Types: Pajunk Needle Gauge: 21 Ultrasound used to visualize needle placement: Yes Ultrasound used to observe medication spread: Yes Injectate: 0.5% Ropivacaine (see comment for volume) (20cc + decadron 4mg) Blood Aspirated: No Pain Paresthesia on Injection Noted: No Resistance on Injection: Normal Image Stored and Saved: Yes Events: Uneventful and Well Tolerated
[2019-11-10] MEDS ORDERED: LACTATED RINGERS 1,000 ML IV ONE (14:31)
[2019-11-10 14:52] VITALS: TEMP 97
[2019-11-10 15:44] VITALS: RESP 17
[2019-11-10 16:10] VITALS: BP 127/83; PULSE 107
--- NOTE | 2019-11-10 23:39 | OP ---
OPERATIVE REPORT DATE OF PROCEDURE: 11/10/2019 SURGEON: Yaya Gandara M.D. [employer] WORKER: Pipo Shaw PA-C. PREOPERATIVE DIAGNOSES: 1. Right shoulder full-thickness re-tear of the rotator cuff. 2. Right shoulder bicipital tenosynovitis. 3. Right shoulder subacromial impingement. POSTOPERATIVE DIAGNOSES: 1. Right shoulder full-thickness re-tear of the supraspinatus and infraspinatus; a 3 x 4 cm tear. 2. Right shoulder medial subluxation, long head biceps tendon. 3. Right shoulder degenerative superior labral tear. 4. Right shoulder multiple retained sutures from previous failed rotator cuff repair. PROCEDURES PERFORMED: 1. Right shoulder arthroscopic revision rotator cuff repair. 2. Right shoulder arthroscopic biceps tenotomy. 3. Right shoulder arthroscopic anterior, superior and posterior labral debridement. 4. Right shoulder arthroscopic removal of foreign bodies. ANESTHESIA: General endotracheal. ESTIMATED BLOOD LOSS: Minimal. TOURNIQUET: None. DRAINS: None. COMPLICATIONS: None apparent. DISPOSITION: Post-Anesthesia Care Unit. EXAMINATION UNDER ANESTHESIA: The right shoulder elevation was 160 degrees, external rotation at the side was to 60 degrees, external rotation at 90 degrees, abduction was 90 degrees, internal rotation at 90 degrees, abduction was 60 degrees, sulcus less than 1 cm, anterior translation glenoid face, posterior translation glenoid face. ARTHROSCOPIC FINDINGS OF THE RIGHT SHOULDER: 1. Superior labrum, type 2 superior labral tear tearing both anterior portions of the biceps anchor. The biceps anchor was not intact. There was also medial subluxation of the long head of the biceps tendon out of the bicipital groove. 2. Anterior, inferior labrum, normal glenoid labral attachment. 3. Posterior labrum tearing of the posterior labrum from the 10 o'clock position up to the 12 o'clock position on the glenoid face. 4. Humeral head cartilage normal. 5. Rotator cuff full-thickness re-tear of the entire supraspinatus and the infraspinatus, 3 x 4 cm. The supraspinatus was torn with retraction to the level of the glenoid. The subscapularis was without tearing and had a normal attachment to the lesser tuberosity. 6. Glenoid face cartilage with mild grade 1 change. 7. Subacromial space. There were multiple loose sutures in the subacromial space and around the greater tuberosity from a previous failed rotator cuff repair. INDICATIONS: Eduardo is a very pleasant 49-year-old male with right shoulder pain. He has had previous open rotator cuff repair in the past. He has noted weakness as well as significant pain in the shoulder over the last year or two. He has been through a fairly significant course of nonoperative treatment at this point. Physical examination and MRI revealed re-tearing of the rotator cuff as well as increased signal in the superior labrum and the bicipital groove. At this point time, the patient feels as if he has failed nonoperative treatment and would like to proceed with operative intervention. A long discussion was held with the patient with regard to treatment options. The risks of the procedure were all discussed with him in detail. These risks included but were not limited to risk of infection, nerve damage, bleeding, pain, and a small risk of deep vein thrombosis which could lead to fatal pulmonary embolism. Further risks include lack of healing of the rotator cuff and the possibility for biceps contour change with a biceps tenotomy. The patient understands the operation as well as the fact that there was no guarantee of improvement of his symptoms. Appropriate informed consent was obtained. DESCRIPTION OF THE PROCEDURE: The patient was identified in the preoperative holding area. Surgical site was marked by both the patient and myself. He was given 2 grams of Ancef IV for prophylactic purposes. He was then transported to the operative suite. He was placed supine on the operating room table. The patient was then intubated endotracheally and received general anesthesia throughout the operative procedure. Examination under anesthesia was then performed and the findings were noted as above. The patient was then placed into the beach chair position, well padded in preparation for surgery. Great care was taken to ensure that the cervical spine was in neutral alignment, well padded and maintained that way throughout the operative procedure. Great care was also taken to ensure that his legs were appropriately padded as well. The patient's right upper extremity was then prepped and draped in usual sterile fashion. A standard surgical pause was undertaken to ensure that appropriate preoperative antibiotics had been given and that we were operating the correct site. All staff in the room were in agreement and we proceeded. The acromion as well as the AC joint and coracoid were marked with a surgical pen. The skin on the anticipated port sites were also marked with a surgical pen. The skin of the anticipated portal sites were then injected with 0.25% Marcaine with epinephrine. I then proceeded to make a posterior portal. A 30-degree arthroscope was introduced into the glenohumeral joint through this portal. The arthroscopic pump pressure was set to 40 mmHg and maintained at that level throughout the entire case. Next, utilizing an 18-gauge spinal needle to topically localize the placement, the anterosuperior portal was made. This was made just underneath the biceps tendon high in the rotator interval. A small 5.75 mm cannula was then placed and the outflow was then done through this cannula. Diagnostic arthroscopy of the shoulder was then performed. The findings are noted above. Great care was taken to probe the superior labral complex as well as the biceps anchor. The biceps anchor was not firmly attached. He had significant tearing of the superior labrum. This extended both anterior and posterior to the biceps anchor. The intra- articular portion of the long head of the biceps tendon did have mild partial tearing as well and was medially subluxed out of the bicipital groove. At this point I proceeded with a biceps tenotomy. The biceps was tenotomized near its attachment on the supraglenoid tubercle. This was done utilizing the ArthroCare wand. I then proceeded to debride the torn loose tissue of the superior labrum. This was debrided anteriorly, superiorly and posteriorly back to stable tissue. I then inspected the rotator cuff from intra-articular. Very, very large tear of the supraspinatus and infraspinatus. There was some anterior suture. These were removed with a grasper at this time. At this point in time no further work was deemed necessary from intra-articular. The arthroscope was removed from the glenohumeral joint and utilizing the same posterior skin incision it was placed in the subacromial space. Next, utilizing the 18-gauge spinal needle to topically localize the placement, a lateral portal was made under direct visualization. Subacromial bursectomy was then performed utilizing the synovial shaver as well as the ArthroCare wand. There was a significant amount of suture material in the subacromial space. There were multiple sutures. These were all removed with a grasper. These were all sutures around the greater tuberosity and were associated with failed prior rotator cuff tear. There was a previous acromioplasty. An acromioplasty was not warranted. I then proceeded to evaluate the rotator cuff tear. I moved the arthroscope to the lateral portal. I did make a fourth portal off the anterolateral angle of the acromion. This was done after first localizing with an 18-gauge spinal needle. He had a very large full-thickness tear of the entire supraspinatus and infraspinatus. The supraspinatus was quite scarred and it was retracted medially to the level of the glenoid. I did a release both superiorly and inferiorly of the supraspinatus. There was significant lysis of adhesions done. The supraspinatus was very mobile; I was unable to bring it much past group home to the humeral head. I was certainly unable to bring it back to the greater tuberosity. The infraspinatus was different. This was fairly mobile. I was able to advance the infraspinatus anteriorly on the greater tuberosity. I made a decision to proceed with repair of the infraspinatus. An Arthrex fiber tape suture was then placed in an inverted horizontal mattress fashion through the infraspinatus. This was brought out through the anterolateral portal. I then placed small microfracture holes along the articular margin to enhance the healing of the repair. I then utilized the awl. It was placed in the most anterolateral aspect of the tuberosity. He had very good bone quality. An Arthrex 4.75 mm SwiveLock anchor was chosen. The FiberTape sutures were shuttled through the eyelet of the anchor and then tensioned appropriately with the arm at the side. This brought the infraspinatus anteriorly to the most lateral edge of the tuberosity. It was a very secure repair. The FiberTape sutures were cut flush with the anchor. At this point in time no further work was deemed necessary. The shoulder was thoroughly irrigated and then drained with an outflow cannula. The arthroscopic equipment was removed from the shoulder. The arthroscopic portals were then closed with 3-0 nylon interrupted suture. Sterile compressive dressings were applied. The patient's right upper extremity was placed into a slingshot-type rotator cuff immobilizer. All sponge and needle counts were deemed correct prior to closure. The patient tolerated the procedure without apparent complication. He was transferred to the recovery room in stable condition. MMODL / IJN: [id number] /
== END 2019-11-10 16:46 | disposition home or self-care (01) ==
LOC: OR 10:55
PROVIDERS: ATTEND Orthopaedic Surgery Sports Medicine
DX: M75.121 Complete rotator cuff tear or rupture of right shoulder, not specified as traumatic (principal); M75.21 Bicipital tendinitis, right shoulder; M75.41 Impingement syndrome of right shoulder; Z79.899 Other long term (current) drug therapy; I10 Essential (primary) hypertension; E78.5 Hyperlipidemia, unspecified; Z83.3 Family history of diabetes mellitus; Z82.49 Family history of ischemic heart disease and other diseases of the circulatory system; Z79.82 Long term (current) use of aspirin; Z79.891 Long term (current) use of opiate analgesic
CPT/HCPCS: 29827; 29828; 64415; 76942; C1713 ×2; J2250; J0330; J1100 ×2; J0690; J2405; J2001; J3010; J2795; J2370; J2704

== ENCOUNTER → 2020-01-13 | Outpatient (CLI) | payer MEDICARE ==
[2020-01-13 11:27] LABS: Basophils # (A) 0.1 k/uL (0-0.2); Basophils % (A) 1 %; Eosinophils # (A) 0.2 k/uL (0-0.7); Eosinophils % (A) 5 %; HGB 14.3 gm/dL (13.0-17.5); Lymphocytes # (A) 1.5 k/uL (1.0-4.8); Lymphocytes % (A) 35 %; MCH 26.7 pg (25.0-35.0); Mean Platelet Volume 6.8; Monocytes # (A) 0.3 k/uL (0-1.0); Monocytes % (A) 7 %; Neutrophils % (A) 48 %; Platelet Count 316 k/uL (150-450); RBC 5.35 m/uL (4.30-5.90); RDW 14.3 % (11.5-15.5); WBC 4.1 k/uL (3.8-10.6)
[2020-01-13 12:51] LABS: Erythrocyte Sedimentation Rate 9 mm/hr (0-15)
[2020-01-13 14:46] LABS: Appearance,Urine Clear (Clear); Bilirubin,Urine Negative (Negative); Color,Urine Yellow; Glucose,Urine (UA) Negative (Negative); Ketones,Urine Negative (Negative); Leukocyte Esterase,Urine Negative (Negative); Nitrite,Urine Negative (Negative); Protein,Urine Negative (Negative); Specific Gravity,Urine 1.015 (1.001-1.035); Urobilinogen,Urine <2.0 mg/dL (<2.0)
[2020-01-13 16:08] LABS: African American GFR (CKD) 81.2 (60.0-200.0); Albumin 4.2 g/dL (3.80-4.90); Anion Gap 7.4 mmol/L (4.00-12.00); Calcium 9.4 mg/dL (8.7-10.3); Carbon Dioxide 27.6 mmol/L (21.6-31.8); Chol/HDL Ratio 2.86; Globulin 2.1 g/dL (1.6-3.3); LDL Cholesterol,Calculated 119.8 mg/dL (0.0-131.0); Magnesium 1.7 mg/dL (1.5-2.4); Non-African American GFR(CKD) 70.1 (60.0-200.0); Phosphorus 3.9 mg/dL (2.4-5.1); Potassium 4.8 mmol/L (3.5-5.5); Total Bilirubin 0.6 mg/dL (0.3-1.2); Total Protein 6.3 g/dL (6.2-8.2); Uric Acid 6.3 mg/dL (3.7-8.7); VLDL Calculation 10.2 mg/dL (5.00-40.00)
[2020-01-13 17:33] LABS: Hemoglobin A1C 5.9 % (4.0-6.0)
== END | disposition home or self-care (01) ==
LOC: LABWHC1 10:29
PROVIDERS: ATTEND Internal Medicine
DX: I10 Essential (primary) hypertension (principal); D64.9 Anemia, unspecified; N40.0 Benign prostatic hyperplasia without lower urinary tract symptoms; M10.9 Gout, unspecified; E78.5 Hyperlipidemia, unspecified; E11.65 Type 2 diabetes mellitus with hyperglycemia; E03.9 Hypothyroidism, unspecified; E55.9 Vitamin D deficiency, unspecified; J06.9 Acute upper respiratory infection, unspecified
CPT/HCPCS: 36415; 80053; 80061; 81003; 82272; 82306; 82550; 82607; 83036; 83735; 84100; 84153; 84439; 84443; 84550; 85025; 85652; 87086

== ENCOUNTER → 2020-03-27 | Outpatient (CLI) | payer MEDICARE | END | disposition home or self-care (01) | LOC: LABWHC1 08:42 | PROVIDERS: ATTEND Internal Medicine | DX: N52.9 Male erectile dysfunction, unspecified (principal) | CPT/HCPCS: 36415; 84402; 84403 ==

== ENCOUNTER → 2020-07-18 | Outpatient (CLI) | payer MEDICARE ==
[2020-07-18 14:04] LABS: HCT 42.1 % (39.0-53.0); HGB 13.3 gm/dL (13.0-17.5); MCH 26.8 pg (25.0-35.0); MCHC 31.6 g/dL (31.0-37.0); MCV 84.7 fL (80.0-100.0); Mean Platelet Volume 6.8; Platelet Count 306 k/uL (150-450); RBC 4.97 m/uL (4.30-5.90); RDW 14.4 % (11.5-15.5); WBC 4.4 k/uL (3.8-10.6)
[2020-07-18 19:08] LABS: % Iron Saturation 28.26 (15.00-50.00); African American GFR (CKD) 73.7 (60.0-200.0); Albumin/Globulin Ratio 1.67 (1.60-3.17); Anion Gap 8.1 mmol/L (4.00-12.00); BUN/Creat Ratio 12.31 Ratio (12.00-20.00); Calcium 9.6 mg/dL (8.7-10.3); Carbon Dioxide 27.9 mmol/L (21.6-31.8); Chol/HDL Ratio 2.93; Globulin 2.4 g/dL (1.6-3.3); LDL Cholesterol,Calculated 103.4 mg/dL (0.0-131.0); Magnesium 1.8 mg/dL (1.5-2.4); Non-African American GFR(CKD) 63.6 (60.0-200.0); Phosphorus 3.6 mg/dL (2.4-5.1); Potassium 4.7 mmol/L (3.5-5.5); Total Bilirubin 0.5 mg/dL (0.3-1.2); Total Protein 6.4 g/dL (6.2-8.2); VLDL Calculation 12.6 mg/dL (5.00-40.00)
[2020-07-18 19:20] LABS: Folate, Serum 18.9 ng/mL
[2020-07-18 19:40] LABS: Hemoglobin A1C 6.4 % (4.0-6.0)
[2020-07-18 22:45] LABS: INR 1.01 (0.90-1.11); Partial Thromboplastin Time 28.5 sec (24.7-29.9); Prothrombin Time 10.8 sec (9.9-11.9)
[2020-07-19 11:52] LABS: Zinc, Serum 74 ug/dL (60-130)
[2020-07-20 08:23] LABS: Vitamin A 57 ug/dL (38-106)
== END | disposition home or self-care (01) ==
LOC: LABWHC1 11:40
PROVIDERS: ATTEND Surgery Plastic and Reconstructive Surgery
DX: E21.1 Secondary hyperparathyroidism, not elsewhere classified (principal); E89.1 Postprocedural hypoinsulinemia; D50.8 Other iron deficiency anemias; K90.89 Other intestinal malabsorption; E55.9 Vitamin D deficiency, unspecified; K74.1 Hepatic sclerosis; N19 Unspecified kidney failure; K50.90 Crohn's disease, unspecified, without complications
CPT/HCPCS: 36415; 80053; 80061; 82306; 82525; 82607; 82728; 82746; 83036; 83540; 83550; 83735; 83970; 84100; 84134; 84255; 84425; 84443; 84590; 84630; 85027; 85610; 85730

== ENCOUNTER → 2020-07-19 | Outpatient (CLI) | payer MEDICARE, OTHER ==
[2020-07-19 15:44] VITALS: BP 127/85; PULSE 68; RESP 16; TEMP 98.4; BMI 39.3
--- NOTE | 2020-07-19 16:32 | P.HPBAR ---
Bariatric H&P - History & Physicial H&P Date: 07/19/20 History & Physicial: Visit/CC: ry f/u [facility] Patient initial contact: Initial weight: 181.437 kg Initial weight in pounds: 400.00 Height: 5 ft 7.75 in Initial BMI: 61.2 Last weight: Current weight: 116.573 kg Current weight in pounds: 257.00 Current BMI: 39.3 [place] body weight (based on NIH guidelines): 69.173 kg Excess body weight loss: 57.7% The patient is a 49 year-old M who presents for Bariatric Assessment. DATE OF SERVICE: 07/19/2020 CHIEF COMPLAINT: Status post gastric bypass HISTORY OF PRESENT ILLNESS: Eduardo Glover is a 49-year-old gentleman status post gastric bypass in 2009. He is 10 years out. He reports weighing over 420 pounds on his wedding day. He gotten down to 175 pounds. Now he has gained weight back up to 250 pounds. He reports moderate troubles from his pannus and is seeking panniculectomy. Separately he did have diabetes that resolved following his weight loss. He had immediate weight gain given the pandemic at least over 20+ pounds. He is looking for weight loss options. His protein intake is 49-52 g daily. He comes in with a new problem. At his height of 5 feet 7-3/4 inches frame he had weighed 420 pounds, BMI 64.5. Today he comes in weighing 256 pounds from 223 pounds, 3 years ago. He has gained 24 pounds in 3 years. He has maintained 164 pound weight loss lifetime. His body mass index has been reduced from 64.5 down of 39.4. Percent excess weight loss is 62%. PAST MEDICAL HISTORY: 1. Diabetes type 2, resolved. 2. Obstructive sleep apnea resolved. 3. Osteoarthritis of the lower back. 4. Herniated disc of lower back. 5. Hypertension. 6. Neuropathy. 7. Depression. 8. Previous history of bowel obstruction. 9. Biliary dyskinesia. 10. Morbid obesity due to excess calories, BMI 64.5 initial 11. Asthma 12. Iron deficiency anemia 13. Gastroesophageal reflux disease 14. Panniculitis PAST SURGICAL HISTORY: 1. Laparoscopic Pedro-en-Y gastric bypass in [place] in 2009. Highest weight of 420 pounds. 2. Open small bowel lysis of adhesions. 3. Cholecystectomy MEDICATIONS: Home Medications Medication Instructions Recorded Confirmed Sertraline [Zoloft] 100 mg PO HS 12/25/16 09/03/20 lisinopriL [Zestril] 10 mg PO HS 12/25/16 09/03/20 Albuterol Inhaler (Mhu) [Ventolin 2 puff INHALATION RT-QID PRN 05/12/19 09/03/20 Hfa Inhaler] Ibuprofen [Motrin Ib] 400 mg PO Q8H PRN 05/12/19 09/03/20 Sildenafil Citrate [Sildenafil] 20 mg PO DIRECTED PRN 05/12/19 09/03/20 Aspirin [Adult Low Dose Aspirin EC] 81 mg PO DAILY 09/01/19 09/03/20 Calcium Carbonate [Tums] 500 mg PO TID PRN 09/01/19 09/03/20 Ferrous Sulfate [Iron] 325 mg PO DAILY 09/01/19 09/03/20 Multivit-Min/Folic/Vit K/Lycop 1 each PO DAILY 09/01/19 09/03/20 [Men's Multivitamin Tablet] Pantoprazole [Protonix] 40 mg PO DAILY 09/01/19 09/03/20 diphenhydrAMINE [Benadryl] 25 mg PO HS 09/01/19 09/03/20 traMADol HCL [Ultram] 50 mg PO BID PRN 09/01/19 09/03/20 Diclofenac Sodium [Voltaren Gel] 2 gram TOPICAL BID 07/19/20 09/03/20 Losartan Potassium 50 mg PO DAILY 08/23/20 09/03/20 Previous Rx's Medication Instructions Recorded Doxycycline Hyclate 100 mg PO BID #10 tab 11/10/19 Nystatin 100,000 Unit/gm Powd 1 applic TOPICAL BID #60 powder 07/19/20 [Mycostatin Powder] ALLERGIES: Denies. SOCIAL HISTORY: Denies any active tobacco use. FAMILY HISTORY: Pertinent for morbid obesity including hypertension. Denies any gallbladder disorders. REVIEW OF SYSTEMS: CONSTITUTIONAL: 420 pounds for 5 foot 7 and 3/4-inch frame. Initial body mass index is 64.5. His lowest weight 175 pounds. [place] body weight of 158 pounds. HEENT: Denies any active troubles with vision or hearing. He denies any active dysphagia. ENDOCRINE: History of diabetes, type II, resolved. Denies any thyroid disorders. RESPIRATORY: Prior history of obstructive sleep apnea now completely resolved. Denies any dyspnea on exertion. No recent pneumonias. CARDIOVASCULAR: Denies any recent chest pain or heart attack. He did have severe hypertension which initially resolved since his surgery. GASTROINTESTINAL: Also reports diarrhea after eating. MUSCULOSKELETAL: He has herniated disc of the lower back. Denies any numbness however, has osteoarthritis in his joints. NEURO: No reports of stroke or seizure disorder. PSYCH: History of depression without suicidal ideation. HEMATOLOGIC: No reports of easy bruising or bleeding. SKIN: Has panniculitis. Has rash. PHYSICAL EXAM: VITAL SIGNS: 5 foot 7-3/4 inch frame, 256 pounds. Body mass index 39.4 Vital Signs Temp 98.4 F 07/19/20 15:40 Pulse 68 07/19/20 15:40 Resp 16 07/19/20 15:40 BP 127/85 07/19/20 15:40 Pulse Ox ABDOMEN: Protuberant. Non-tender. GENERAL: Well-developed male in no acute distress. HEENT: No scleral icterus. Extraocular movements grossly intact. Moist buccal mucosa. CHEST: Nonlabored respirations. Equal bilateral excursions. CARDIOVASCULAR: Regular rate and rhythm. ABDOMEN: Soft, nontender, nondistended. MUSCULOSKELETAL: No clubbing, cyanosis, or edema. NEURO: Cranial nerves II through XII grossly intact. No focal or lateralizing signs. PSYCH: Appropriate affect. Alert and oriented to person, place, and time. SKIN: Well perfused. Good skin turgor. LABS: Reviewed. Hgb A1c 6.4 is elevated. Thiamine is low. ASSESSMENT: 1. Morbid obesity due to excess calories, improved. 2. Body mass index reduced from 64.5 down to 39.4. 3. Status post weight regain following Pedro-en-Y gastric bypass. 4. History of essential tremors. 5. Neuropathy secondary to Vitamin B deficiency. 6. Obstructive sleep apnea resolved. 7. Hhl-ctucrsb-sgkrdujfw diabetes 8. Essential hypertension. 9. Gastroesophageal reflux disease. 10. Dysphagia. 11. Biliary dyskinesia with chronic cholecystitis. 12. Osteoarthritis with herniated disc of the lower back. 13. Dietary surveillance and counseling. 14. Panniculitis. 15. Inadequate protein intake. 16. Hair loss. 17. Status post massive weight loss over 100 pounds. 18. Thiamine deficiency PLAN: 1. Do recommend referral evaluation of bariatric dietitian. 2. Recommend food diary journal. 3. Recommend increased protein intake to 75 g daily. 4. Also encourage weight check on a weekly basis at home. 5. Also recommend follow-up in 1 month. 6. Nystatin powder prescribed. Past Medical History Past Medical History: GERD/Reflux, Hypertension Additional Past Medical History / Comment(s): HERNIATED DISCS , BACK PAIN & NERVE PAIN IN LEGS., SLEEP APNEA AND DIABETES RESOLVED WITH WEIGHT LOSS., HAND TREMORS., SEASONAL ALLERGIES, History of Any Multi-Drug Resistant Organisms: None Reported Past Surgical History: Adenoidectomy, Appendectomy, Bariatric Surgery, Cholecystectomy, Hernia Repair, Orthopedic Surgery, Tonsillectomy Additional Past Surgical History / Comment(s): carpal tunnel surgery right, PEDRO-N-Y 2009 IN [place], right shoulder surgery X2 anastomosis SMALL BOWEL LYSIS OF ADHESIONS R/T SMALL BOWEL OBSTRUCTION, LAP MADAY Left Inguinal hernia repair Past Anesthesia/Blood Transfusion Reactions: No Reported Reaction Additional Past Anesthesia/Blood Transfusion Reaction / Comm: UNABLE TO URINATE AFTER LAP MADAY 01/17/17 Past Psychological History: Anxiety, Depression Smoking Status: Never smoker Past Alcohol Use History: None Reported Additional Past Alcohol Use History / Comment(s): STATES NO ALCOHOL FOR 15 YRS. Past Drug Use History: None Reported - Past Family History Mother Family Medical History: No Reported History Father Family Medical History: Deep Vein Thrombosis (DVT) Surgical - Exam Vital Signs Temp Pulse Resp BP 98.4 F 68 16 127/85 07/19/20 15:40 07/19/20 15:40 07/19/20 15:40 07/19/20 15:40 Bariatric Checklist Checklist: Plan: Checklist: EGD: 1. Hiatal hernia: 2. H. Pylori: HgbA1c: Vitamin D: Smoking: Never smoker Primary care physician referral: [facility] Psychiatry clearance: Cardiology clearance: Sleep study: Diet journal: VTE risk score: VTE risk level: Rehab needs at discharge:
== END | disposition home or self-care (01) ==
LOC: BARWHC3 15:09
PROVIDERS: ATTEND Surgery Plastic and Reconstructive Surgery
DX: Z48.815 Encounter for surgical aftercare following surgery on the digestive system (principal); Z98.84 Bariatric surgery status
CPT/HCPCS: 99211

== ENCOUNTER → 2020-07-21 | Outpatient (CLI) | payer MEDICARE, OTHER | END | disposition home or self-care (01) | LOC: LABWHC1 13:25 | PROVIDERS: ATTEND Internal Medicine | DX: R11.0 Nausea (principal); M10.9 Gout, unspecified | CPT/HCPCS: 36415; 84550; 85652; 87338 ==

== ENCOUNTER → 2020-07-24 | Outpatient (CLI) | payer MEDICARE, OTHER ==
[2020-07-24 14:19] VITALS: BMI 39.3
== END | disposition home or self-care (01) ==
LOC: BARWHC3 12:49
PROVIDERS: ATTEND Surgery Plastic and Reconstructive Surgery
DX: E66.01 Morbid (severe) obesity due to excess calories (principal); Z68.39 Body mass index [BMI] 39.0-39.9, adult
CPT/HCPCS: 97803

== ENCOUNTER → 2021-01-31 | Outpatient (CLI) | payer MEDICARE, OTHER ==
[2021-01-31 16:01] VITALS: BP 149/89; PULSE 92; RESP 16; TEMP 98.9; BMI 39.0
--- NOTE | 2021-01-31 16:39 | P.PN ---
Subjective Progress Note Date: 01/31/21 DATE OF SERVICE: 01/31/2021 CHIEF COMPLAINT: Status post gastric bypass HISTORY OF PRESENT ILLNESS: Eduardo Glover is a 50-year-old gentleman status post gastric bypass in 2009. He is 11 years out. He comes in with new moderate weight gain. He comes in with new abdominal pain. He has new epigastric pain. He reports his pills are getting stuck. He reports right lower quadrant abdominal pain. He has new bruising. He is drinking moderate caffeine over 40 grams. He also comes in with panniculitis and is seeking management. At his height of 5 feet 7-3/4 inches frame he had weighed 420 pounds, BMI 64.5. Today he comes in weighing 254 pounds from 245 pounds, 1 year ago. He has gained 9 pounds in 1 year. He has maintained 166 pound weight loss lifetime. His body mass index has been reduced from 64.5 down of 39.1. Lifetime percent excess weight loss is 63%. PAST MEDICAL HISTORY: 1. Diabetes type 2, resolved. 2. Obstructive sleep apnea resolved. 3. Osteoarthritis of the lower back. 4. Herniated disc of lower back. 5. Hypertension. 6. Neuropathy. 7. Depression. 8. Previous history of bowel obstruction. 9. Biliary dyskinesia. 10. Morbid obesity due to excess calories, BMI 64.5 initial 11. Asthma 12. Iron deficiency anemia 13. Gastroesophageal reflux disease 14. Panniculitis PAST SURGICAL HISTORY: 1. Laparoscopic Jeremy-en-Y gastric bypass in [place] in 2009. Highest weight of 420 pounds. 2. Open small bowel lysis of adhesions. 3. Cholecystectomy MEDICATIONS: Home Medications Medication Instructions Recorded Confirmed Sertraline [Zoloft] 100 mg PO HS 12/25/16 01/31/21 lisinopriL [Zestril] 10 mg PO HS 12/25/16 01/31/21 Albuterol Inhaler (Mhu) [Ventolin 2 puff INHALATION RT-QID PRN 05/12/19 01/31/21 Hfa Inhaler] Ibuprofen [Motrin Ib] 400 mg PO Q8H PRN 05/12/19 01/31/21 Sildenafil Citrate [Sildenafil] 20 mg PO DIRECTED PRN 05/12/19 01/31/21 Aspirin [Adult Low Dose Aspirin EC] 81 mg PO DAILY 09/01/19 01/31/21 Calcium Carbonate [Tums] 500 mg PO TID PRN 09/01/19 01/31/21 Ferrous Sulfate [Iron] 325 mg PO DAILY 09/01/19 01/31/21 Multivit-Min/Folic/Vit K/Lycop 1 each PO DAILY 09/01/19 01/31/21 [Men's Multivitamin Tablet] Pantoprazole [Protonix] 40 mg PO DAILY 09/01/19 01/31/21 diphenhydrAMINE [Benadryl] 25 mg PO HS 09/01/19 01/31/21 traMADol HCL [Ultram] 50 mg PO BID PRN 09/01/19 01/31/21 Diclofenac Sodium [Voltaren Gel] 2 gram TOPICAL BID 07/19/20 01/31/21 Losartan Potassium 50 mg PO DAILY 08/23/20 01/31/21 Previous Rx's Medication Instructions Recorded Doxycycline Hyclate 100 mg PO BID #10 tab 11/10/19 Nystatin 100,000 Unit/gm Powd 1 applic TOPICAL BID #60 powder 07/19/20 [Mycostatin Powder] ALLERGIES: Allergies Allergy/AdvReac Type Severity Reaction Status Date / Time No Known Allergies Allergy Verified 01/31/21 16:04 SOCIAL HISTORY: Denies any active tobacco use. FAMILY HISTORY: Pertinent for morbid obesity including hypertension. Denies any gallbladder disorders. REVIEW OF SYSTEMS: CONSTITUTIONAL: Highest weight of 420 pounds for 5 foot 7 and 3/4-inch frame. Initial body mass index is 64.5. His lowest weight 175 pounds. [place] body weight of 158 pounds. HEENT: Denies any active troubles with vision or hearing. He denies any active dysphagia. ENDOCRINE: History of diabetes, type II, resolved. Denies any thyroid disorders. RESPIRATORY: Prior history of obstructive sleep apnea now completely resolved. Denies any dyspnea on exertion. No recent pneumonias. CARDIOVASCULAR: Denies any recent chest pain or heart attack. He did have severe hypertension which initially resolved since his surgery. GASTROINTESTINAL: Also reports diarrhea after eating. MUSCULOSKELETAL: He has herniated disc of the lower back. Denies any numbness however, has osteoarthritis in his joints. NEURO: No reports of stroke or seizure disorder. PSYCH: History of depression without suicidal ideation. HEMATOLOGIC: No reports of easy bruising or bleeding. SKIN: Has panniculitis. Has rash. PHYSICAL EXAM: VITAL SIGNS: 5 foot 7-3/4 inch frame, 254 pounds. Body mass index 39.1 Vital Signs Temp 98.9 F 01/31/21 15:58 Pulse 92 01/31/21 15:58 Resp 16 01/31/21 15:58 BP 149/89 01/31/21 15:58 Pulse Ox ABDOMEN: Protuberant. Non-tender. GENERAL: Well-developed male in no acute distress. HEENT: No scleral icterus. Extraocular movements grossly intact. Moist buccal mucosa. CHEST: Nonlabored respirations. Equal bilateral excursions. CARDIOVASCULAR: Regular rate and rhythm. ABDOMEN: Soft, nontender, nondistended. MUSCULOSKELETAL: No clubbing, cyanosis, or edema. NEURO: Cranial nerves II through XII grossly intact. No focal or lateralizing signs. PSYCH: Appropriate affect. Alert and oriented to person, place, and time. SKIN: Well perfused. Good skin turgor. ASSESSMENT: 1. Morbid obesity due to excess calories, improved. 2. Body mass index reduced from 64.5 down to 39.1 3. Status post weight regain following Jeremy-en-Y gastric bypass. 4. History of essential tremors. 5. Neuropathy secondary to Vitamin B deficiency. 6. Obstructive sleep apnea resolved. 7. Cay-xjwkqha-vewcasekd diabetes 8. Essential hypertension. 9. Gastroesophageal reflux disease. 10. Dysphagia. 11. Biliary dyskinesia with chronic cholecystitis. 12. Osteoarthritis with herniated disc of the lower back. 13. Dietary surveillance and counseling. 14. Panniculitis. 15. Epigastric pain 16. Right lower quadrant pain PLAN: 1. He comes in with weight gain and epigastric pain including right lower quadrant pain. Recommend upper endoscopy. 2. Recommend bariatric labs. 3. Recommend food diary journal. Objective - Vital Signs Vital signs: Vital Signs Temp 98.9 F 01/31/21 15:58 Pulse 92 01/31/21 15:58 Resp 16 01/31/21 15:58 BP 149/89 01/31/21 15:58 Pulse Ox Intake & Output 01/30/21 01/31/21 01/31/21 18:59 06:59 18:59 Weight 115.666 kg
== END | disposition home or self-care (01) ==
LOC: BARWHC3 15:32
PROVIDERS: ATTEND Surgery Plastic and Reconstructive Surgery
DX: E66.01 Morbid (severe) obesity due to excess calories (principal); E53.9 Vitamin B deficiency, unspecified; G62.9 Polyneuropathy, unspecified; E11.9 Type 2 diabetes mellitus without complications; I10 Essential (primary) hypertension; K21.9 Gastro-esophageal reflux disease without esophagitis; R13.10 Dysphagia, unspecified; K82.8 Other specified diseases of gallbladder; K81.9 Cholecystitis, unspecified; M47.816 Spondylosis without myelopathy or radiculopathy, lumbar region; J45.909 Unspecified asthma, uncomplicated; M79.3 Panniculitis, unspecified; R10.13 Epigastric pain; R10.31 Right lower quadrant pain; F32.9 Major depressive disorder, single episode, unspecified; Z71.3 Dietary counseling and surveillance; Z68.39 Body mass index [BMI] 39.0-39.9, adult; Z86.69 Personal history of other diseases of the nervous system and sense organs; Z98.84 Bariatric surgery status; Z79.899 Other long term (current) drug therapy
CPT/HCPCS: 99211

== ENCOUNTER → 2021-03-02 | Outpatient (CLI) | payer MEDICARE, OTHER ==
[2021-03-02 21:09] LABS: Basophils # (A) 0.04 X 10*3/uL (0.00-0.10); Basophils % (A) 0.9 %; Eosinophils # (A) 0.33 X 10*3/uL (0.04-0.35); Eosinophils % (A) 7.8 %; HCT 46.9 % (39.6-50.0); HGB 14.8 g/dL (13.0-17.0); Lymphocytes % (A) 35.3 %; MCH 27.1 pg (27.0-32.0); MCHC 31.6 g/dL (32.0-37.0); MCV 85.9 fL (80.0-97.0); Mean Platelet Volume 10.1 fL (9.5-12.2); Monocytes # (A) 0.56 X 10*3/uL (0.20-1.00); Monocytes % (A) 13.2 %; Neutrophils # (A) 1.81 X 10*3/uL (1.80-7.70); Neutrophils % (A) 42.6 %; Platelet Count 322 X 10*3/uL (140-440); RBC 5.46 X 10*6/uL (4.40-5.60); RDW 15.3 % (11.5-14.5); WBC 4.25 X 10*3/uL (4.50-10.00)
[2021-03-02 22:45] LABS: Erythrocyte Sedimentation Rate 6 mm/Hr (0-20)
[2021-03-03 02:55] LABS: ALT 32 U/L (10-49); AST 28 U/L (14-35); African American GFR (CKD) 73.2 (60.0-200.0); Alkaline Phosphatase 97 U/L (41-126); BUN/Creat Ratio 16.15 Ratio (12.00-20.00); C Reactive Protein <0.4 mg/dL (0.0-0.8); Calcium 9.7 mg/dL (8.7-10.3); Carbon Dioxide 26.3 mmol/L (21.6-31.8); Chloride 105 mmol/L (96-109); Chol/HDL Ratio 2.77; Cholesterol 194 mg/dL (0-200); Creatine Kinase 191 U/L (35-257); Globulin 2.2 g/dL (1.6-3.3); Glucose 101 mg/dL (70-110); LDL Cholesterol,Calculated 108.6 mg/dL (0.0-131.0); Magnesium 1.8 mg/dL (1.5-2.4); Non-African American GFR(CKD) 63.2 (60.0-200.0); Phosphorus 4.2 mg/dL (2.4-5.1); Potassium 4.6 mmol/L (3.5-5.5); Sodium 142 mmol/L (135-145); Total Bilirubin 0.6 mg/dL (0.3-1.2); Total Protein 6.6 g/dL (6.2-8.2); Uric Acid 8.4 mg/dL (3.7-8.7)
[2021-03-03 02:57] LABS: Prostate Specific Antigen 0.8 ng/mL (0.0-3.5)
[2021-03-03 06:25] LABS: Urine Creatinine 128.6 mg/dL
== END | disposition home or self-care (01) ==
LOC: LABWHC1 12:25
PROVIDERS: ATTEND Surgery Plastic and Reconstructive Surgery
DX: Z00.00 Encounter for general adult medical examination without abnormal findings (principal); N19 Unspecified kidney failure; N40.0 Benign prostatic hyperplasia without lower urinary tract symptoms; K90.9 Intestinal malabsorption, unspecified; K74.1 Hepatic sclerosis; K50.90 Crohn's disease, unspecified, without complications; E03.9 Hypothyroidism, unspecified; E55.9 Vitamin D deficiency, unspecified; D50.8 Other iron deficiency anemias; E11.65 Type 2 diabetes mellitus with hyperglycemia; E66.9 Obesity, unspecified
CPT/HCPCS: 36415; 80053; 80061; 82043; 82306; 82550; 82570; 83036; 83735; 84100; 84153; 84443; 84550; 85025; 85652; 86140

== ENCOUNTER 2021-04-18 09:10 | Day surgery (SDC) | payer MEDICARE, OTHER ==
[2021-04-13 15:36] VITALS: BMI 35.6
--- NOTE | 2021-04-18 08:08 | P.GSHP ---
History of Present Illness H&P Date: 04/18/21 CHIEF COMPLAINT: GERD HISTORY OF PRESENT ILLNESS: The patient is a 50-year-old male who presents reports gastroesophageal reflux disease. Upper endoscopy was offered for further evaluation and management. PAST MEDICAL HISTORY: Please see list. PAST SURGICAL HISTORY: Please see list. MEDICATIONS: Please see list. ALLERGIES: Please see list. SOCIAL HISTORY: No illicit drug use FAMILY HISTORY: No reports of Crohn disease or ulcerative colitis. REVIEW OF ORGAN SYSTEMS: CONSTITUTIONAL: No reports of fevers or chills. GI: Denies any blood in stools or constipation. PHYSICAL EXAM: VITAL SIGNS: Stable GENERAL: Well-developed and pleasant in no acute distress. HEENT: No scleral icterus. Extraocular movements grossly intact. Moist buccal mucosa. NECK: Supple without lymphadenopathy. CHEST: Unlabored respirations. Equal bilateral excursions. CARDIOVASCULAR: Regular rate and rhythm. Distal 2+ pulses. ABDOMEN: Soft, nondistended. MUSCULOSKELETAL: No clubbing, cyanosis, or edema. ASSESSMENT: 1. Gastroesophageal reflux disease PLAN: 1. Recommend proceeding with an upper endoscopy Past Medical History Past Medical History: GERD/Reflux, Hypertension, Musculoskeletal Disorder Additional Past Medical History / Comment(s): HERNIATED DISCS , BACK PAIN & NERVE PAIN IN LEGS., SLEEP APNEA AND DIABETES RESOLVED WITH WEIGHT LOSS., HAND TREMORS., SEASONAL ALLERGIES, recent abd. pain, occasional dysphagia History of Any Multi-Drug Resistant Organisms: None Reported Past Surgical History: Adenoidectomy, Appendectomy, Bariatric Surgery, Cholecystectomy, Hernia Repair, Orthopedic Surgery, Tonsillectomy Additional Past Surgical History / Comment(s): carpal tunnel surgery right, PEDRO-N-Y 2009 IN [place], right shoulder surgery X2 anastomosis SMALL BOWEL LYSIS OF ADHESIONS R/T SMALL BOWEL OBSTRUCTION, Left Inguinal hernia repair, epidural pain procedures Past Anesthesia/Blood Transfusion Reactions: No Reported Reaction Additional Past Anesthesia/Blood Transfusion Reaction / Comment(s): UNABLE TO URINATE AFTER LAP MADAY 01/17/17 Smoking Status: Never smoker - Past Family History Mother Family Medical History: No Reported History Father Family Medical History: Deep Vein Thrombosis (DVT) Medications and Allergies Home Medications Medication Instructions Recorded Confirmed Type Sertraline [Zoloft] 100 mg PO HS 12/25/16 04/13/21 History Albuterol Inhaler (Mhu) [Ventolin 2 puff INHALATION RT-QID PRN 05/12/19 04/13/21 History Hfa Inhaler] Ibuprofen [Motrin Ib] 400 mg PO Q8H PRN 05/12/19 04/13/21 History Sildenafil Citrate [Sildenafil] 20 mg PO DIRECTED PRN 05/12/19 04/13/21 History Aspirin [Adult Low Dose Aspirin EC] 81 mg PO DAILY 09/01/19 04/13/21 History Calcium Carbonate [Tums] 500 mg PO TID PRN 09/01/19 04/13/21 History Ferrous Sulfate [Iron] 325 mg PO DAILY 09/01/19 04/13/21 History Multivit-Min/Folic/Vit K/Lycop 1 each PO DAILY 09/01/19 04/13/21 History [Men's Multivitamin Tablet] diphenhydrAMINE [Benadryl] 25 mg PO HS 09/01/19 04/13/21 History traMADol HCL [Ultram] 50 mg PO BID PRN 09/01/19 04/13/21 History Diclofenac Sodium [Voltaren Gel] 2 gram TOPICAL BID 07/19/20 04/13/21 History Losartan Potassium 50 mg PO HS 08/23/20 04/13/21 History Omeprazole [PriLOSEC] 40 mg PO DAILY 04/13/21 04/13/21 History Allergies Allergy/AdvReac Type Severity Reaction Status Date / Time No Known Allergies Allergy Verified 01/31/21 16:04
[~2021-04-18 09:10] MED LIST changes: -DEXAMETHASONE SOD PHOSPHATE 10 MG/ML 1 ML VIAL IV ONE; -HYDROmorphone 0.5 MG/0.5 ML SYRINGE IVP PRN; +LIDOCAINE 1% (10MG/ML) FOR IV START INTRADERMA PRN; -MIDAZOLAM 2 MG/2 ML VIAL IV PRN; -ONDANSETRON 4 MG/2 ML VIAL IVP ONE; -SCOPOLAMINE 1.5MG/72HR PATCH TRANSDERM ONE
[2021-04-18 09:54] VITALS: TEMP 96.8
[2021-04-18] MEDS ORDERED: LIDOCAINE 1% INJ 10MG/ML (20 ML MDV) ONE (10:17)
[2021-04-18] MEDS ORDERED: PROPOFOL 10 MG/ML 20 ML VIAL IV ONE (10:17)
[2021-04-18] MEDS ORDERED: KETAMINE 10 MG/ML 20 ML VIAL ONE (10:17)
--- NOTE | 2021-04-18 10:37 | P.PCN ---
Date of Procedure: 04/18/21 Description of Procedure: PREOPERATIVE DIAGNOSIS: Dysphagia. s/p Jeremy-en-y gastric bypass. Nausea with vomiting. Morbid obesity. Diabetes type 2. POSTOPERATIVE DIAGNOSIS: Dysphagia. s/p Jeremy-en-y gastric bypass. Nausea with vomiting. Morbid obesity. Diabetes type 2. Diaphragmatic hiatal hernia Gastritis OPERATION: Esophagogastrojejunoscopy with biopsies along gastric pouch SURGEON: Emily Rodriguez MD ANESTHESIA: MAC. INDICATIONS: The patient is a 50-year-old male who presents with a history of dysphagia, gastric bypass including new-onset nausea and vomiting. Benefits and risks of the procedure were described. Informed consent was obtained. DESCRIPTION: The patient was brought into the endoscopy suite and laid in the left lateral decubitus position. After a timeout was confirmed, the procedure was initiated. An Olympus gastroscope was passed along the posterior oropharynx down to the d istal esophagus where the squamocolumnar junction was unremarkable. The gastric pouch was entered. Mild gastritis was identified and cold forceps biopsies was obtained. No stricture was identified along the anastomosis. No ulcers were identified along the anastomosis. The GI tract was desufflated. The patient tolerated the procedure well. FINDINGS: Squamocolumnar junction unremarkable No stricture encountered. No chronic gastrojejunal ulceration encountered. Diaphragmatic hiatus at 40 cm. Gastric pouch 5 cm. Sliding diaphragmatic hiatal hernia RECOMMENDATIONS: Discontinue NSAIDs for gastritis Plan - Discharge Summary Discharge Rx Participant: No New Discharge Prescriptions: Continue Sertraline [Zoloft] 100 mg PO HS Sildenafil Citrate 20 mg PO DIRECTED PRN PRN Reason: ERECTILE DISFUNCTION Albuterol Inhaler (Mhu) [Ventolin Hfa Inhaler (Mhu)] 2 puff INHALATION RT-QID PRN PRN Reason: Shortness Of Breath traMADol HCL [Ultram] 50 mg PO BID PRN PRN Reason: Pain diphenhydrAMINE [Benadryl] 25 mg PO HS Calcium Carbonate [Tums] 500 mg PO TID PRN PRN Reason: Heartburn Multivit-Min/Folic/Vit K/Lycop [Men's Multivitamin Tablet] 1 each PO DAILY Ferrous Sulfate [Iron] 325 mg PO DAILY Aspirin [Adult Low Dose Aspirin EC] 81 mg PO DAILY Diclofenac Sodium [Voltaren Gel] 2 gram TOPICAL BID Losartan Potassium 50 mg PO HS Omeprazole [PriLOSEC] 40 mg PO DAILY Discontinued Ibuprofen [Motrin Ib] 400 mg PO Q8H PRN PRN Reason: Pain Discharge Medication List Sertraline [Zoloft] 100 mg PO HS 12/25/16 [History] Albuterol Inhaler (Mhu) [Ventolin Hfa Inhaler (Mhu)] 2 puff INHALATION RT-QID PRN 05/12/19 [History] Sildenafil Citrate 20 mg PO DIRECTED PRN 05/12/19 [History] Aspirin [Adult Low Dose Aspirin EC] 81 mg PO DAILY 09/01/19 [History] Calcium Carbonate [Tums] 500 mg PO TID PRN 09/01/19 [History] Ferrous Sulfate [Iron] 325 mg PO DAILY 09/01/19 [History] Multivit-Min/Folic/Vit K/Lycop [Men's Multivitamin Tablet] 1 each PO DAILY 09/01/19 [History] diphenhydrAMINE [Benadryl] 25 mg PO HS 09/01/19 [History] traMADol HCL [Ultram] 50 mg PO BID PRN 09/01/19 [History] Diclofenac Sodium [Voltaren Gel] 2 gram TOPICAL BID 07/19/20 [History] Losartan Potassium 50 mg PO HS 08/23/20 [History] Omeprazole [PriLOSEC] 40 mg PO DAILY 04/13/21 [History] [place] [facility] Patient Instructions/Handouts: Hiatal Hernia (DC), Gastritis (DC) Activity/Diet/Wound Care/Special Instructions: Avoid ibuprofen, Aleve, aspirin, Motrin for risk of ulcers Discharge Disposition: HOME SELF-CARE
[2021-04-18 11:05] VITALS: BP 108/77; PULSE 75; RESP 16
== END 2021-04-18 11:23 | disposition home or self-care (01) ==
LOC: ORWHC2ENDO 09:10
PROVIDERS: ATTEND Surgery Plastic and Reconstructive Surgery
DX: K29.50 Unspecified chronic gastritis without bleeding (principal); K44.9 Diaphragmatic hernia without obstruction or gangrene; Z98.84 Bariatric surgery status; K21.9 Gastro-esophageal reflux disease without esophagitis; R13.10 Dysphagia, unspecified; K31.7 Polyp of stomach and duodenum; E66.01 Morbid (severe) obesity due to excess calories; Z68.35 Body mass index [BMI] 35.0-35.9, adult; I10 Essential (primary) hypertension; M54.9 Dorsalgia, unspecified; G58.8 Other specified mononeuropathies; R25.1 Tremor, unspecified; Z90.89 Acquired absence of other organs; Z90.49 Acquired absence of other specified parts of digestive tract; Z98.890 Other specified postprocedural states; Z82.49 Family history of ischemic heart disease and other diseases of the circulatory system; J40 Bronchitis, not specified as acute or chronic; F41.9 Anxiety disorder, unspecified; F32.9 Major depressive disorder, single episode, unspecified; Z79.82 Long term (current) use of aspirin; Z79.899 Other long term (current) drug therapy; E11.9 Type 2 diabetes mellitus without complications
CPT/HCPCS: 88305; 43239; J2001; J2704

== ENCOUNTER → 2021-05-02 | Outpatient (CLI) | payer MEDICARE, OTHER ==
[2021-05-02 15:23] VITALS: BP 134/79; PULSE 74; RESP 16; TEMP 97.9; BMI 38.0
--- NOTE | 2021-05-02 15:47 | P.PN ---
Subjective Progress Note Date: 05/02/21 DATE OF SERVICE: 05/02/2021 CHIEF COMPLAINT: Status post gastric bypass HISTORY OF PRESENT ILLNESS: Eduardo Glover is a 50-year-old gentleman status post gastric bypass in 2009. He is 11 years out. He reports occasional epigastric pain and dysphagia. He has completed an upper endoscopy. He also comes in with new concerns of panniculitis. He reports pulling along us lower back due to his pannus. He reports skin lesions along his pannsu minimally responsive to prescription therapy. At his height of 5 feet 7-3/4 inches frame he had weighed 420 pounds, BMI 64.5. Today he comes in weighing 247 pounds from 254 pounds, 3 months ago. He has lost 7 pounds in 3 months. He has maintained 172 pound weight loss lifetime. His body mass index has been reduced from 64.5 down of 38.0. Lifetime percent excess weight loss is 66%. PAST MEDICAL HISTORY: 1. Diabetes type 2, resolved. 2. Obstructive sleep apnea resolved. 3. Osteoarthritis of the lower back. 4. Herniated disc of lower back. 5. Hypertension. 6. Neuropathy. 7. Depression. 8. Previous history of bowel obstruction. 9. Biliary dyskinesia. 10. Morbid obesity due to excess calories, BMI 64.5 initial 11. Asthma 12. Iron deficiency anemia 13. Gastroesophageal reflux disease 14. Panniculitis PAST SURGICAL HISTORY: 1. Laparoscopic Jeremy-en-Y gastric bypass in [place] in 2009. Highest weight of 420 pounds. 2. Open small bowel lysis of adhesions. 3. Cholecystectomy MEDICATIONS: Home Medications Medication Instructions Recorded Confirmed Sertraline [Zoloft] 100 mg PO HS 12/25/16 05/02/21 Albuterol Inhaler (Mhu) [Ventolin 2 puff INHALATION RT-QID PRN 05/12/19 05/02/21 Hfa Inhaler (Mhu)] Sildenafil Citrate 20 mg PO DIRECTED PRN 05/12/19 05/02/21 Aspirin [Adult Low Dose Aspirin EC] 81 mg PO DAILY 09/01/19 05/02/21 Calcium Carbonate [Tums] 500 mg PO TID PRN 09/01/19 05/02/21 Ferrous Sulfate [Iron] 325 mg PO DAILY 09/01/19 05/02/21 Multivit-Min/Folic/Vit K/Lycop 1 each PO DAILY 09/01/19 05/02/21 [Men's Multivitamin Tablet] diphenhydrAMINE [Benadryl] 25 mg PO HS 09/01/19 05/02/21 traMADol HCL [Ultram] 50 mg PO BID PRN 09/01/19 05/02/21 Diclofenac Sodium [Voltaren Gel] 2 gram TOPICAL BID 07/19/20 05/02/21 Losartan Potassium 50 mg PO HS 08/23/20 05/02/21 Omeprazole [PriLOSEC] 40 mg PO DAILY 04/13/21 05/02/21 Previous Rx's Medication Instructions Recorded Nystatin 100,000 Unit/gm Powd 1 applic TOPICAL BID #60 powder 05/02/21 [Mycostatin Powder] ALLERGIES: Allergies Allergy/AdvReac Type Severity Reaction Status Date / Time No Known Allergies Allergy Verified 05/02/21 15:52 SOCIAL HISTORY: Denies any active tobacco use. FAMILY HISTORY: Pertinent for morbid obesity including hypertension. Denies any gallbladder disorders. REVIEW OF SYSTEMS: CONSTITUTIONAL: Highest weight of 420 pounds for 5 foot 7 and 3/4-inch frame. Initial body mass index is 64.5. His lowest weight 175 pounds. [place] body weight of 158 pounds. HEENT: Denies any active troubles with vision or hearing. He denies any active dysphagia. ENDOCRINE: History of diabetes, type II, resolved. Denies any thyroid disorders. RESPIRATORY: Prior history of obstructive sleep apnea now completely resolved. Denies any dyspnea on exertion. No recent pneumonias. CARDIOVASCULAR: Denies any recent chest pain or heart attack. He did have severe hypertension which initially resolved since his surgery. GASTROINTESTINAL: Also reports diarrhea after eating. MUSCULOSKELETAL: He has herniated disc of the lower back. Denies any numbness however, has osteoarthritis in his joints. NEURO: No reports of stroke or seizure disorder. PSYCH: History of depression without suicidal ideation. HEMATOLOGIC: No reports of easy bruising or bleeding. SKIN: Has panniculitis. Has rash. PHYSICAL EXAM: VITAL SIGNS: 5 foot 7-3/4 inch frame, 247 pounds. Body mass index 38.0 Vital Signs Temp 97.9 F 05/02/21 15: Pulse 74 05/02/21 15:21 Resp 16 05/02/21 15:21 BP 134/79 05/02/21 15:21 Pulse Ox GENERAL: Well-developed male in no acute distress. HEENT: No scleral icterus. Extraocular movements grossly intact. Moist buccal mucosa. NECK: No gross thyroidomegaly. CHEST: Nonlabored respirations. Equal bilateral excursions. CARDIOVASCULAR: Regular rate and rhythm. ABDOMEN: Soft, nontender, nondistended. MUSCULOSKELETAL: No clubbing, cyanosis, or edema. NEURO: Cranial nerves II through XII grossly intact. No focal or lateralizing signs. PSYCH: Appropriate affect. Alert and oriented to person, place, and time. SKIN: Well perfused. Good skin turgor. LABS: Reviewed. WBC low. HDL high. EGD FINDINGS: Squamocolumnar junction unremarkable No stricture encountered. No chronic gastrojejunal ulceration encountered. Diaphragmatic hiatus at 40 cm. Gastric pouch 5 cm. Sliding diaphragmatic hiatal hernia Final Pathologic Diagnosis GASTRIC BIOPSY: Benign gastric mucosa with minimal chronic gastritis. Helicobacter pylori organisms are not identified on routine H+E sections. ASSESSMENT: 1. Morbid obesity due to excess calories 2. Body mass index reduced from 64.5 down to 38.1 3. Status post weight regain following Jeremy-en-Y gastric bypass. 4. History of essential tremors. 5. Neuropathy secondary to Vitamin B deficiency. 6. Obstructive sleep apnea resolved. 7. Spi-ygpfztj-aoprqwonh diabetes 8. Essential hypertension. 9. Gastroesophageal reflux disease. 10. Dysphagia. 11. Biliary dyskinesia with chronic cholecystitis. 12. Osteoarthritis with herniated disc of the lower back. 13. Dietary surveillance and counseling. 14. Panniculitis. 15. Epigastric pain 16. Right lower quadrant pain PLAN: 1. He has symptomatic hiatal hernia. Recommend repair. Robotic assisted hiatal hernia repair advised. He is elevated risk due to pre-existing gastric bypass. 2. Recommend 12-lead EKG for cardiac risk assessment and cardiology referral. 3. He has panniculitis. Recommend coke [employer] mason referral. 4. Nystatin powder prescribed. Objective - Vital Signs Vital signs: Vital Signs Temp 97.9 F 05/02/21 15:21 Pulse 74 05/02/21 15:21 Resp 16 05/02/21 15:21 BP 134/79 05/02/21 15:21 Pulse Ox Intake & Output 05/01/21 05/02/21 05/02/21 18:59 06:59 18:59 Weight 112.491 kg - Labs CBC & Chem 7: 05/02/21 16:26 05/02/21 16:26
[2021-05-02 17:00] LABS: HCT 40.7 % (39.0-53.0); HGB 13.6 gm/dL (13.0-17.5); MCH 28.6 pg (25.0-35.0); MCHC 33.4 g/dL (31.0-37.0); MCV 85.6 fL (80.0-100.0); Mean Platelet Volume 6.9; Platelet Count 272 k/uL (150-450); RBC 4.75 m/uL (4.30-5.90); RDW 14.6 % (11.5-15.5); WBC 5.2 k/uL (3.8-10.6)
[2021-05-02 22:43] LABS: INR 1.03 (0.90-1.11); Partial Thromboplastin Time 28.6 sec (23.5-31.0); Prothrombin Time 11.2 sec (9.9-11.9)
[2021-05-03 03:30] LABS: % Iron Saturation 23.55 (15.00-50.00); ALT 24 U/L (10-49); AST 22 U/L (14-35); African American GFR (CKD) 80.7 (60.0-200.0); Alkaline Phosphatase 93 U/L (41-126); BUN/Creat Ratio 19.17 Ratio (12.00-20.00); Calcium 9.4 mg/dL (8.7-10.3); Carbon Dioxide 31.4 mmol/L (21.6-31.8); Chloride 106 mmol/L (96-109); Chol/HDL Ratio 3.19; Cholesterol 204 mg/dL (0-200); Globulin 2.5 g/dL (1.6-3.3); Glucose 113 mg/dL (70-110); Iron 77 ug/dL (65-175); LDL Cholesterol,Calculated 124.4 mg/dL (0.0-131.0); Magnesium 1.8 mg/dL (1.5-2.4); Non-African American GFR(CKD) 69.6 (60.0-200.0); Phosphorus 3.3 mg/dL (2.4-5.1); Potassium 4.6 mmol/L (3.5-5.5); Sodium 143 mmol/L (135-145); Total Bilirubin 0.3 mg/dL (0.3-1.2); Total Iron Binding Capacity 327 ug/dL (228-460); Total Protein 6.5 g/dL (6.2-8.2)
[2021-05-03 03:36] LABS: Ferritin 65.6 ng/mL (22.0-322.0)
[2021-05-03 04:29] LABS: Folate, Serum >24.0 ng/mL
[2021-05-03 05:19] LABS: Hemoglobin A1C 6.1 % (4.0-6.0)
[2021-05-03 14:13] LABS: Zinc, Serum 61 ug/dL (60-130)
[2021-05-04 06:49] LABS: Vitamin A 54 ug/dL (38-106)
[2021-05-06 17:09] LABS: Selenium 113 mcg/L (63-160)
[2021-05-07 13:46] LABS: Vit B1(Thiamine) 78 ug/L (38-122)
== END | disposition home or self-care (01) ==
LOC: BARWHC3 15:06
PROVIDERS: ATTEND Surgery Plastic and Reconstructive Surgery
DX: E66.01 Morbid (severe) obesity due to excess calories (principal); G25.0 Essential tremor; E11.40 Type 2 diabetes mellitus with diabetic neuropathy, unspecified; I10 Essential (primary) hypertension; K21.9 Gastro-esophageal reflux disease without esophagitis; R13.10 Dysphagia, unspecified; K82.8 Other specified diseases of gallbladder; M19.90 Unspecified osteoarthritis, unspecified site; M79.3 Panniculitis, unspecified; Z71.3 Dietary counseling and surveillance; Z68.44 Body mass index [BMI] 60.0-69.9, adult; Z79.84 Long term (current) use of oral hypoglycemic drugs
CPT/HCPCS: 84255; 84134; 84425; 80061; 80053; 82607; 82728; 82525; 82746; 83540; 83550; 83735; 84100; 84443; 84590; 84630; 85027; 85610; 85730; 82306; 83970; 83036; 93005; 36415; G0463; 99211

== ENCOUNTER 2021-08-27 09:21 | Emergency (ER) | payer MEDICARE, OTHER ==
[2021-08-27 09:32] VITALS: BP 125/86; PULSE 81; RESP 18; TEMP 98.4
[2021-08-27] MEDS ORDERED: SODIUM CHLORIDE 0.9% 1,000 ML IV STA (10:27)
[2021-08-27] MEDS ORDERED: ONDANSETRON 4 MG/2 ML VIAL IVP STA (10:28)
--- NOTE | 2021-08-27 10:34 | ED ---
General Adult HPI - General Chief complaint: Recheck/Abnormal Lab/Rx Stated complaint: Chest congestion,diarrhea Time Seen by Provider: 08/27/21 09:50 Source: patient Mode of arrival: ambulatory Limitations: no limitations - History of Present Illness Initial comments: 50-year-old male with a past medical history of GERD, hypertension, back and leg pain presents to the emergency room for several complaints. Patient's first complaint is nausea. This is an ongoing for about a week now. He has had several episodes of diarrhea as well. He is also having some right-sided abdominal pain in the upper abdomen. Patient has not had fevers. Patient would also like to be evaluated for chest pressure that's been going on for the past few weeks. Patient states it comes and goes. States it feels like his chest is congested and he has been coughing some.Patient has no other complaints at this time including shortness of breath, abdominal pain, headache, or visual changes. - Related Data Home Medications Medication Instructions Recorded Confirmed Sertraline [Zoloft] 100 mg PO HS 12/25/16 08/27/21 Sildenafil Citrate 20 mg PO DAILY PRN 05/12/19 08/27/21 Multivit-Min/Folic/Vit K/Lycop 1 tab PO DAILY 09/01/19 08/27/21 [Men's Multivitamin Tablet] traMADol HCL [Ultram] 50 mg PO TID PRN 09/01/19 08/27/21 Diclofenac Sodium [Voltaren Gel] 1 applic TOPICAL BID PRN 07/19/20 08/27/21 Losartan Potassium 50 mg PO DAILY 08/23/20 08/27/21 Omeprazole [PriLOSEC] 40 mg PO DAILY 04/13/21 08/27/21 Albuterol Inhaler [Ventolin Hfa 2 puff INHALATION RT-BID PRN 08/27/21 08/27/21 Inhaler] Previous Rx's Medication Instructions Recorded Dicyclomine [Bentyl] 20 mg PO TID PRN #14 tablet 08/27/21 Allergies Allergy/AdvReac Type Severity Reaction Status Date / Time No Known Allergies Allergy Verified 08/27/21 09:32 Review of Systems ROS Statement: Those systems with pertinent positive or pertinent negative responses have been documented in the HPI. ROS Other: All systems not noted in ROS Statement are negative. Past Medical History Past Medical History: GERD/Reflux, Hypertension, Musculoskeletal Disorder Additional Past Medical History / Comment(s): HERNIATED DISCS , BACK PAIN & NERVE PAIN IN LEGS., SLEEP APNEA AND DIABETES RESOLVED WITH WEIGHT LOSS., HAND TREMORS., SEASONAL ALLERGIES, recent abd. pain, occasional dysphagia History of Any Multi-Drug Resistant Organisms: None Reported Past Surgical History: Adenoidectomy, Appendectomy, Bariatric Surgery, Cholecystectomy, Hernia Repair, Orthopedic Surgery, Tonsillectomy Additional Past Surgical History / Comment(s): carpal tunnel surgery right, PEDRO-N-Y 2009 IN [place], right shoulder surgery X2 anastomosis SMALL BOWEL LYSIS OF ADHESIONS R/T SMALL BOWEL OBSTRUCTION, Left Inguinal hernia repair, epidural pain procedures Past Anesthesia/Blood Transfusion Reactions: No Reported Reaction Additional Past Anesthesia/Blood Transfusion Reaction / Comment(s): UNABLE TO URINATE AFTER LAP MADAY 01/17/17 Past Psychological History: Anxiety, Depression Smoking Status: Never smoker Past Alcohol Use History: None Reported Past Drug Use History: None Reported - Past Family History Mother Family Medical History: No Reported History Father Family Medical History: Deep Vein Thrombosis (DVT) General Exam Limitations: no limitations General appearance: alert, in no apparent distress Head exam: Present: atraumatic Eye exam: Present: normal appearance, PERRL, EOMI. Absent: scleral icterus, conjunctival injection ENT exam: Present: normal exam, mucous membranes moist Neck exam: Present: normal inspection, full ROM. Absent: tenderness Respiratory exam: Present: normal lung sounds bilaterally. Absent: respiratory distress, wheezes Cardiovascular Exam: Present: regular rate, normal rhythm, normal heart sounds GI/Abdominal exam: Present: soft, tenderness (Patient has mild right upper qu adrant abdominal tenderness. No right lower quadrant or left lower quadrant abdominal tenderness.), normal bowel sounds. Absent: distended, guarding, rebound Course Vital Signs 08/27/21 09:28 Temperature 98.4 F Pulse Rate 81 Respiratory 18 Rate Blood Pressure 125/86 O2 Sat by Pulse 96 Oximetry EKG Findings - EKG Comments: EKG Findings:: Sinus rhythm, ventricular rate 81, UT interval 144, QTC 436 Medical Decision Making - Medical Decision Making Vitals stable. Patient is well-appearing. EKG is nonischemic. HPI and physical exam as documented. CBC CMP unremarkable. Urinalysis unremarkable. Rotavirus is negative. As far as abdominal pain and diarrhea ultrasound of the c gallbladder and CT of the abdomen and pelvis did not reveal any new concerning changes. Patient can follow up with primary care for this. Regards to his chest discomfort over the past month or so he denies any radiating pain, d iaphoresis, shortness of breath, or pain with exertion. Complains moreso of chest congestion and has had slight cough. Symptoms are atypical in nature. Furthermore symptoms have been ongoing for a month. Heart scores low at 3. At this time feel that patient is stable for outpatient follow-up. If symptoms worsen he'll return to the emergency room. - Lab Data Result diagrams: 08/27/21 10:33 08/27/21 10:33 Lab Results 08/27/21 08/27/21 08/27/21 Range/Units 10:33 10: 10:33 WBC 4.8 (3.8-10.6) k/uL RBC 5.43 (4.30-5.90) m/uL Hgb 15.1 (13.0-17.5) gm/dL Hct 45.8 (39.0-53.0) % MCV 84.4 (80.0-100.0) fL MCH 27.9 (25.0-35.0) pg MCHC 33.0 (31.0-37.0) g/dL RDW 14.2 (11.5-15.5) % Plt Count 302 (150-450) k/uL MPV 6.9 Neutrophils % 48 % Lymphocytes % 34 % Monocytes % 9 % Eosinophils % 6 % Basophils % 1 % Neutrophils # 2.3 (1.3-7.7) k/uL Lymphocytes # 1.6 (1.0-4.8) k/uL Monocytes # 0.4 (0-1.0) k/uL Eosinophils # 0.3 (0-0.7) k/uL Basophils # 0.1 (0-0.2) k/uL Sodium 139 (137-145) mmol/L Potassium 4.5 (3.5-5.1) mmol/L Chloride 104 (98-107) mmol/L Carbon Dioxide 27 (22-30) mmol/L Anion Gap 8 mmol/L BUN 21 H (9-20) mg/dL Creatinine 1.09 (0.66-1.25) mg/dL Est GFR (CKD-EPI)AfAm >90 (>60 ml/min/1.73 sqM) Est GFR (CKD-EPI)NonAf 78 (>60 ml/min/1.73 sqM) Glucose 99 (74-99) mg/dL Plasma Lactic Acid Tom (0.7-2.0) mmol/L Calcium 9.8 (8.4-10.2) mg/dL Total Bilirubin 0.6 (0.2-1.3) mg/dL AST 34 (17-59) U/L ALT 34 (4-49) U/L Alkaline Phosphatase 104 (38-126) U/L Troponin I (0.000-0.034) ng/mL Total Protein 7.3 (6.3-8.2) g/dL Albumin 4.1 (3.5-5.0) g/dL Amylase 163 H (30-110) U/L Lipase 69 (23-300) U/L Urine Color Yellow Urine Appearance Clear (Clear) Urine pH 6.5 (5.0-8.0) Ur Specific [place] 1.017 (1.001-1.035) Urine Protein Negative (Negative) Urine Glucose (UA) Negative (Negative) Urine Ketones Negative (Negative) Urine Blood Negative (Negative) Urine Nitrite Negative (Negative) Urine Bilirubin Negative (Negative) Urine Urobilinogen <2.0 (<2.0) mg/dL Ur Leukocyte Esterase Negative (Negative) Coronavirus (PCR) (Not Detectd) 08/27/21 08/27/21 08/27/21 Range/Units 10:33 10:33 10:57 WBC (3.8-10.6) k/uL RBC (4.30-5.90) m/uL Hgb (13.0-17.5) gm/dL Hct (39.0-53.0) % MCV (80.0-100.0) fL MCH (25.0-35.0) pg MCHC (31.0-37.0) g/dL RDW (11.5-15.5) % Plt Count (150-450) k/uL MPV Neutrophils % % Lymphocytes % % Monocytes % % Eosinophils % % Basophils % % Neutrophils # (1.3-7.7) k/uL Lymphocytes # (1.0-4.8) k/uL Monocytes # (0-1.0) k/uL Eosinophils # (0-0.7) k/uL Basophils # (0-0.2) k/uL Sodium (137-145) mmol/L Potassium (3.5-5.1) mmol/L Chloride (98-107) mmol/L Carbon Dioxide (22-30) mmol/L Anion Gap mmol/L BUN (9-20) mg/dL Creatinine (0.66-1.25) mg/dL Est GFR (CKD-EPI)AfAm (>60 ml/min/1.73 sqM) Est GFR (CKD-EPI)NonAf (>60 ml/min/1.73 sqM) Glucose (74-99) mg/dL Plasma Lactic Acid Tom 1.1 (0.7-2.0) mmol/L Calcium (8.4-10.2) mg/dL Total Bilirubin (0.2-1.3) mg/dL AST (17-59) U/L ALT (4-49) U/L Alkaline Phosphatase (38-126) U/L Troponin I <0.012 (0.000-0.034) ng/mL Total Protein (6.3-8.2) g/dL Albumin (3.5-5.0) g/dL Amylase (30-110) U/L Lipase (23-300) U/L Urine Color Urine Appearance (Clear) Urine pH (5.0-8.0) Ur Specific [place] (1.001-1.035) Urine Protein (Negative) Urine Glucose (UA) (Negative) Urine Ketones (Negative) Urine Blood (Negative) Urine Nitrite (Negative) Urine Bilirubin (Negative) Urine Urobilinogen (<2.0) mg/dL Ur Leukocyte Esterase (Negative) Coronavirus (PCR) Not Detected (Not Detectd) Disposition Clinical Impression: Abdominal pain, Diarrhea Disposition: HOME SELF-CARE Condition: Good Instructions (If sedation given, give patient instructions): Abdominal Pain (ED) Additional Instructions: Please follow-up with your doctor in one to 2 days. Return to the emergency room for any worsening symptoms. Prescriptions: Dicyclomine [Bentyl] 20 mg PO TID PRN #14 tablet PRN Reason: abdominal pain Is patient prescribed a controlled substance at d/c from ED?: No Referrals: Oscar Wild MD [Primary Care Provider] - 1-2 days Time of Disposition: 13:32
[2021-08-27 10:56] LABS: Basophils # (A) 0.1 k/uL (0-0.2); Basophils % (A) 1 %; Eosinophils # (A) 0.3 k/uL (0-0.7); Eosinophils % (A) 6 %; HCT 45.8 % (39.0-53.0); HGB 15.1 gm/dL (13.0-17.5); Lymphocytes # (A) 1.6 k/uL (1.0-4.8); Lymphocytes % (A) 34 %; MCH 27.9 pg (25.0-35.0); MCV 84.4 fL (80.0-100.0); Mean Platelet Volume 6.9; Monocytes # (A) 0.4 k/uL (0-1.0); Monocytes % (A) 9 %; Neutrophils # (A) 2.3 k/uL (1.3-7.7); Neutrophils % (A) 48 %; Platelet Count 302 k/uL (150-450); RBC 5.43 m/uL (4.30-5.90); RDW 14.2 % (11.5-15.5); WBC 4.8 k/uL (3.8-10.6)
[2021-08-27 10:57] LABS: Appearance,Urine Clear (Clear); Bilirubin,Urine Negative (Negative); Blood,Urine Negative (Negative); Color,Urine Yellow; Glucose,Urine (UA) Negative (Negative); Ketones,Urine Negative (Negative); Leukocyte Esterase,Urine Negative (Negative); Nitrite,Urine Negative (Negative); PH, Urine 6.5 (5.0-8.0); Protein,Urine Negative (Negative); Specific Gravity,Urine 1.017 (1.001-1.035); Urobilinogen,Urine <2.0 mg/dL (<2.0)
[2021-08-27 11:17] LABS: ALT 34 U/L (4-49); AST 34 U/L (17-59); African American GFR (CKD) >90 (>60 ml/min/1.73 sqM); Albumin 4.1 g/dL (3.5-5.0); Alkaline Phosphatase 104 U/L (38-126); Amylase 163 U/L (30-110); Anion Gap 8 mmol/L; Blood Urea Nitrogen 21 mg/dL (9-20); Calcium 9.8 mg/dL (8.4-10.2); Carbon Dioxide 27 mmol/L (22-30); Chloride 104 mmol/L (98-107); Glucose 99 mg/dL (74-99); Lipase 69 U/L (23-300); Non-African American GFR(CKD) 78 (>60 ml/min/1.73 sqM); Potassium 4.5 mmol/L (3.5-5.1); Sodium 139 mmol/L (137-145); Total Bilirubin 0.6 mg/dL (0.2-1.3); Total Protein 7.3 g/dL (6.3-8.2)
--- NOTE | 2021-08-27 11:34 | US ---
EXAMINATION TYPE: US gallbladder DATE OF EXAM: 08/27/2021 COMPARISON: NONE CLINICAL HISTORY: pain. Nausea, pt states history of gastric bypass 11 years ago, GB removed approx 2 -3 years ago/ GB scan ordered by ER EXAM MEASUREMENTS: Liver Length: 13.7 cm CBD: 0.6 cm Right Kidney: 9.6 x 5.9 x 5.3 cm Morbidly obese pt with overlying bowel gas- difficult exam Pancreas: Obscured by bowel gas Liver: Visualized portions appeared wnl Gallbladder: Surgically absent Evidence for sonographic Gandara's sign: No CBD: Mildly dilated likely due to post cholecystectomy Right Kidney: wnl IMPRESSION: Exam is limited technically. Postop change.
[2021-08-27] MEDS ORDERED: KETOROLAC 15 MG/ML 1 ML VIAL IVP STA (11:55)
--- NOTE | 2021-08-27 12:02 | XR ---
EXAMINATION TYPE: XR chest 2V DATE OF EXAM: 08/27/2021 COMPARISON: None HISTORY: Chest and abdominal pain TECHNIQUE: Frontal and lateral views of the chest are obtained. FINDINGS: There is no focal air space opacity, pleural effusion, or pneumothorax seen. The cardiac silhouette size is within normal limits. The osseous structures are intact, postop change noted lik lauren status post rotator cuff repair right shoulder, there is a distal acromial spur, acromioclavicula r joint arthropathy. Right hemidiaphragm somewhat elevated, patient is rotated. Postoperative changes are noted at the gastroesophageal junction level.. IMPRESSION: No acute cardiopulmonary process.
--- NOTE | 2021-08-27 13:09 | CT ---
EXAMINATION TYPE: CT abdomen pelvis w con DATE OF EXAM: 08/27/2021 COMPARISON: CT abdomen and pelvis December 22, 2010 HISTORY: generalized pain, diarrhea CT DLP: 2222 mGycm, Automated Exposure Control for Dose Reduction was Utilized. CONTRAST: CT scan of the abdomen and pelvis is performed with oral and with IV Contrast, patient injected with 100 mL of Isovue 300. FINDINGS: LUNG BASES: Slightly elevated right hemidiaphragm with mild right basilar linear scarring. LIVER/GB: Cholecystectomy clips now present. PANCREAS: No significant abnormality is seen. SPLEEN: No significant abnormality is seen. ADRENALS: No significant abnormality is seen. KIDNEYS: Symmetrical cortical medullary uptake and excretion without hydronephrosis seen bilaterally. BOWEL: Extensive surgical changes from gastric bypass procedure at the epigastric region is redemonst rated surgical changes extend to small bowel loops in the left anterior abdomen similar to prior. Sli ghtly suboptimal evaluation without enteric contrast. No suspicious small or large bowel dilatation. PROSTATE/SEMINAL VESICLES: No gross abnormality seen. LYMPH NODES: No greater than 1cm abdominal or pelvic lymph nodes are appreciated. OSSEOUS STRUCTURES: Bilateral pars defect L5 level. Grade 1 anterolisthesis L5 on S1 with fairly liborio re disc space narrowing along with vacuum disc phenomenon and endplate sclerosis. OTHER: No significant additional abnormality is seen. IMPRESSION: No significant new or acute finding is seen to account for patient's clinical symptoms o f pain and diarrhea.
== END 2021-08-27 14:01 | disposition home or self-care (01) ==
LOC: EC 09:21
DX: R10.11 Right upper quadrant pain (principal); R19.7 Diarrhea, unspecified; R07.89 Other chest pain; R09.89 Other specified symptoms and signs involving the circulatory and respiratory systems; I10 Essential (primary) hypertension; E11.9 Type 2 diabetes mellitus without complications; K21.9 Gastro-esophageal reflux disease without esophagitis; Z79.899 Other long term (current) drug therapy; Z90.49 Acquired absence of other specified parts of digestive tract; Z20.822 Contact with and (suspected) exposure to COVID-19
CPT/HCPCS: 36415; 93005; 80053; 82150; 83605; 83690; 84484; 85025; 81003; 87635; 71046; 76705; 74177; 99284; 96374; 96361; 96375; J2405; J1885; Q9967

== ENCOUNTER → 2022-01-03 | Outpatient (CLI) | payer MEDICARE, OTHER ==
[2022-01-03 18:34] LABS: ALT 32 U/L (10-49); AST 25 U/L (14-35); African American GFR (CKD) 80.9 (60.0-200.0); Albumin 4.1 g/dL (3.8-4.9); Albumin/Globulin Ratio 1.39 (1.60-3.17); Alkaline Phosphatase 92 U/L (41-126); BUN/Creat Ratio 14.29 Ratio (12.00-20.00); Calcium 9.6 mg/dL (8.7-10.3); Carbon Dioxide 26.5 mmol/L (20.0-27.5); Chloride 104 mmol/L (96-109); Chol/HDL Ratio 3.76 Ratio; Glucose 88 mg/dL (70-110); LDL Cholesterol,Calculated 174.1 mg/dL (0.0-131.0); Non-African American GFR(CKD) 69.8 (60.0-200.0); Potassium 4.4 mmol/L (3.5-5.5); Sodium 140 mmol/L (135-145); Total Protein 7.1 g/dL (6.2-8.2); VLDL Calculation 11.56 mg/dL (5.00-40.00)
[2022-01-03 18:53] LABS: HCT 44.5 % (39.6-50.0); HGB 13.9 g/dL (13.0-17.0); MCH 27.5 pg (27.0-32.0); MCHC 31.2 g/dL (32.0-37.0); MCV 88.1 fL (80.0-97.0); Mean Platelet Volume 9.7 fL (9.5-12.2); NRBC Per 100 WBC 0 /100 WBCS (0.0-0.0); Platelet Count 358 X 10*3/uL (140-440); RBC 5.05 X 10*6/uL (4.40-5.60); RDW 15.8 % (11.5-14.5); WBC 5.99 X 10*3/uL (4.50-10.00)
== END | disposition home or self-care (01) ==
LOC: LABWHC1 10:00
PROVIDERS: ATTEND Internal Medicine Interventional Cardiology
DX: I10 Essential (primary) hypertension (principal)
CPT/HCPCS: 36415; 80053; 80061; 83036; 85027

== ENCOUNTER → 2024-03-18 | Outpatient (CLI) | payer MEDICARE, OTHER ==
[2024-03-18 15:37] LABS: Basophils # (A) 0.04 X 10*3/uL (0.00-0.10); Basophils % (A) 0.8 %; Eosinophils # (A) 0.28 X 10*3/uL (0.04-0.35); Eosinophils % (A) 5.4 %; HGB 13.4 g/dL (13.0-17.0); Lymphocytes # (A) 1.45 X 10*3/uL (0.90-5.00); Lymphocytes % (A) 27.9 %; MCH 26.4 pg (27.0-32.0); MCHC 31.9 g/dL (32.0-37.0); MCV 82.8 FL (80.0-97.0); Mean Platelet Volume 9.4 FL (9.5-12.2); Monocytes # (A) 0.61 X 10*3/uL (0.20-1.00); Monocytes % (A) 11.7 %; NRBC Per 100 WBC 0 X 10*3/uL (0.00-0.01); Neutrophils # (A) 2.81 X 10*3/uL (1.80-7.70); Platelet Count 323 X 10*3/uL (140-440); RBC 5.07 X 10*6/uL (4.40-5.60); RDW 14.7 % (11.5-14.5)
[2024-03-18 16:15] LABS: Thyroid Peroxidase Antibodies <9.0 U/mL (0.0-33.0)
[2024-03-18 16:33] LABS: % Iron Saturation 16.04 (15.00-50.00); ALT 28 U/L (10-49); AST 25 U/L (14-35); Albumin 3.9 g/dL (3.8-4.9); Albumin/Globulin Ratio 1.77 Ratio (1.60-3.17); Alkaline Phosphatase 118 U/L (41-126); BUN/Creat Ratio 16.27 Ratio (12.00-20.00); Blood Urea Nitrogen 17.9 mg/dL (9.0-27.0); C Reactive Protein <0.30 mg/dL (0.00-0.80); Calcium 9.4 mg/dL (8.7-10.3); Carbon Dioxide 24.3 mmol/L (21.6-31.8); Chloride 107 mmol/L (96-109); Chol/HDL Ratio 2.34 Ratio; Creatine Kinase 232 U/L (35-257); Ferritin 19.8 ng/mL (22.0-322.0); Globulin 2.2 g/dL (1.6-3.3); Glucose 95 mg/dL (70-110); Iron 68 UG/DL (65-175); LDL Cholesterol,Calculated 84.7 mg/dL (0.0-131.0); Magnesium 1.8 mg/dL (1.5-2.4); Phosphorus 3.3 mg/dL (2.4-5.1); Potassium 4.4 mmol/L (3.5-5.5); Prostate Specific Antigen 0.73 ng/mL (0.000-3.500); Sodium 142 mmol/L (135-145); Total Bilirubin 0.4 mg/dL (0.3-1.2); Total Iron Binding Capacity 424 UG/DL (228-460); Total Protein 6.1 g/dL (6.2-8.2); Uric Acid 7.3 mg/dL (3.7-8.7); VLDL Calculation 9.18 mg/dL (5.00-40.00)
[2024-03-18 16:57] LABS: Erythrocyte Sedimentation Rate 23 mm/Hr (0-20)
--- NOTE | 2024-03-19 13:15 | XR ---
EXAMINATION TYPE: XR chest 2V DATE OF EXAM: 03/18/2024 COMPARISON: 08/27/2021 HISTORY: 53-year-old male Z00.00 PHYSICAL, cough and congestion TECHNIQUE: Frontal and lateral views FINDINGS: The cardiomediastinal silhouette, aorta, and pulmonary vasculature are within normal limits. Asymmetr ic elevation right hemidiaphragm. Lungs and pleural spaces are clear. Suture anchor right humeral hea d from prior cuff repair. IMPRESSION: 1. Asymmetric elevation right hemidiaphragm. If concern for hemidiaphragmatic paralysis, a fluoroscop ic sniff test may be performed. 2. Otherwise, no acute cardiopulmonary process.
== END | disposition home or self-care (01) ==
LOC: LABWHC1 11:15
PROVIDERS: ATTEND Internal Medicine
DX: Z00.00 Encounter for general adult medical examination without abnormal findings (principal); E55.9 Vitamin D deficiency, unspecified; E11.65 Type 2 diabetes mellitus with hyperglycemia; D64.9 Anemia, unspecified; N40.0 Benign prostatic hyperplasia without lower urinary tract symptoms; E87.8 Other disorders of electrolyte and fluid balance, not elsewhere classified; K75.9 Inflammatory liver disease, unspecified; E78.5 Hyperlipidemia, unspecified; E21.3 Hyperparathyroidism, unspecified; E03.9 Hypothyroidism, unspecified
CPT/HCPCS: 36415; 71046; 80053; 80061; 82306; 82550; 82728; 83036; 83540; 83550; 83735; 83970; 84100; 84146; 84153; 84402; 84403; 84443; 84550; 85025; 85652; 86140; 86376; 86800

== ENCOUNTER → 2024-03-24 | Outpatient (CLI) | payer MEDICARE, OTHER ==
--- NOTE | 2024-03-24 16:00 | P.HPBAR ---
Bariatric H&P - History & Physicial H&P Date: 03/24/24 History & Physicial: Visit/CC: Patient initial contact: Initial weight: 181.437 kg Initial weight in pounds: Height: Initial BMI: Last weight: Current weight: Current weight in pounds: Current BMI: [place] body weight (based on NIH guidelines): Excess body weight loss: The patient is a 53 year-old M who presents for Bariatric Assessment. DATE OF SERVICE: 03/24/24 CHIEF COMPLAINT: Status post gastric bypass HISTORY OF PRESENT ILLNESS: Eduardo Glover is a 53-year-old gentleman status post gastric bypass in 2009. He is 24 years postop. He has been lost to follow up for 3 years. He comes in with anemia including persistently low iron for over 6 months. He reports his PCP took him off his iron and now he has a resultant anemia. His highest is 420 pounds. Lowest 175 pounds. He has gained 92 pounds from his lowest weight in the past 24 years. He has gained 40 pounds in 7 years. He is looking into weight loss. At his height of 5 feet 7-3/4 inches frame he had weighed 420 pounds, BMI 64.5. His highest weight was 175 pounds. Today he comes in weighing 267 pounds from 247 pounds, 3 years ago gained 20 pounds in 3 years. He has maintained 172 pound weight loss lifetime. His body mass index has been reduced from 64.5 down to 40.9. Left time percent excess weight loss 58%. PAST MEDICAL HISTORY: 1. Diabetes type 2, resolved. 2. Obstructive sleep apnea 3. Osteoarthritis of the lower back. 4. Herniated disc of lower back. 5. Hypertension. 6. Neuropathy. 7. Depression. 8. Previous history of bowel obstruction. 9. Biliary dyskinesia. 10. Morbid obesity due to excess calories, BMI 64.5 initial 11. Asthma 12. Iron deficiency anemia 13. Gastroesophageal reflux disease 14. Panniculitis 15. Generalized anxiety disorder PAST SURGICAL HISTORY: 1. Laparoscopic Jeremy-en-Y gastric bypass in [place] in 2009. Highest weight of 420 pounds. 2. Open small bowel lysis of adhesions. 3. Cholecystectomy 4. Appendectomy 5. Adenoidectomy 6. Ventral hernia repair 7. Tonsillectomy 8. Left inguinal hernia repair MEDICATIONS: Home Medications Medication Instructions Recorded Confirmed Sertraline [Zoloft] 100 mg PO HS 12/25/16 03/26/24 Sildenafil Citrate 20 mg PO DAILY PRN 05/12/19 03/26/24 Multivit-Min/Folic/Vit K/Lycop 1 tab PO DAILY 09/01/19 03/26/24 [Men's Multivitamin Tablet] traMADol HCL [Ultram] 50 mg PO TID PRN 09/01/19 03/26/24 Diclofenac Sodium [Voltaren Gel] 1 applic TOPICAL BID PRN 07/19/20 03/26/24 Losartan Potassium 50 mg PO DAILY 08/23/20 03/26/24 Omeprazole [PriLOSEC] 40 mg PO DAILY 04/13/21 03/26/24 Albuterol Inhaler [Ventolin Hfa 2 puff INHALATION RT-BID PRN 08/27/21 03/26/24 Inhaler] Previous Rx's Medication Instructions Recorded Dicyclomine [Bentyl] 20 mg PO TID PRN #14 tablet 08/27/21 ALLERGIES: Allergies Allergy/AdvReac Type Severity Reaction Status Date / Time No Known Allergies Allergy Verified 08/27/21 09:32 SOCIAL HISTORY: Denies any active tobacco use. FAMILY HISTORY: Pertinent for morbid obesity including hypertension. Denies any gallbladder disorders. REVIEW OF SYSTEMS: CONSTITUTIONAL: Highest weight of 420 pounds for 5 foot 7 and 3/4-inch frame. Initial body mass index is 64.5. His lowest weight 175 pounds. [place] body weight of 158 pounds. HEENT: Denies any active troubles with vision or hearing. He has dysphagia. ENDOCRINE: History of diabetes, type II. Denies any thyroid disorders. RESPIRATORY: Prior history of obstructive sleep apnea now completely resolved. Denies any dyspnea on exertion. No recent pneumonias. CARDIOVASCULAR: Denies any recent chest pain or heart attack. Hypertensive heart disease GASTROINTESTINAL: Also reports diarrhea after eating. MUSCULOSKELETAL: He has herniated disc of the lower back. Denies any numbness however, has osteoarthritis in his joints. NEURO: No reports of stroke or seizure disorder. PSYCH: History of depression without suicidal ideation. HEMATOLOGIC: No reports of easy bruising or bleeding. SKIN: Has panniculitis. Has rash. PHYSICAL EXAM: VITAL SIGNS: 5 foot 7-3/4 inch frame, 247 pounds. Body mass index 38.0 Vital Signs Temp 98 F 03/24/24 16:09 Pulse 96 03/24/24 16:09 Resp BP 127/82 03/24/24 16:09 Pulse Ox FiO2 GENERAL: Well-developed male in no acute distress. HEENT: No scleral icterus. Extraocular movements grossly intact. Moist buccal mucosa. NECK: No gross thyroidomegaly. CHEST: Nonlabored respirations. Equal bilateral excursions. CARDIOVASCULAR: Regular rate and rhythm. ABDOMEN: Soft, nontender, nondistended. MUSCULOSKELETAL: No clubbing, cyanosis, or edema. NEURO: Cranial nerves II through XII grossly intact. No focal or lateralizing signs. PSYCH: Appropriate affect. Alert and oriented to person, place, and time. SKIN: Well perfused. Good skin turgor. LABS: Reviewed from February 2024 demonstrates hemoglobin A1c 6.2%, elevated. Total protein low 6.1. ASSESSMENT: 1. Morbid obesity due to excess calories 2. Body mass index reduced from 64.5 down to 40.9 3. Status post weight regain following Jeremy-en-Y gastric bypass. 4. History of essential tremors. 5. Neuropathy secondary to Vitamin B deficiency. 6. Obstructive sleep apnea resolved. 7. [id number] diabetes 8. Essential hypertension. 9. Gastroesophageal reflux disease. 10. Dysphagia. 11. Biliary dyskinesia with chronic cholecystitis. 12. Osteoarthritis with herniated disc of the lower back. 13. Dietary surveillance and counseling. 14. Panniculitis. 15. Epigastric pain 16. Right lower quadrant pain PLAN: 1. Recommend full bariatric labs with exception of hemoglobin A1c which was just obtained last month. 2. Recommend food diary journal to identify causes of weight gain. 3. Also will evaluate thyroid disorder as a cause of her weight regain. Past Medical History Past Medical History: GERD/Reflux, Hypertension, Musculoskeletal Disorder Additional Past Medical History / Comment(s): HERNIATED DISCS , BACK PAIN & NERVE PAIN IN LEGS., SLEEP APNEA AND DIABETES RESOLVED WITH WEIGHT LOSS., HAND TREMORS., SEASONAL ALLERGIES, recent abd. pain, occasional dysphagia History of Any Multi-Drug Resistant Organisms: None Reported Past Surgical History: Adenoidectomy, Appendectomy, Bariatric Surgery, Cholecystectomy, Hernia Repair, Orthopedic Surgery, Tonsillectomy Additional Past Surgical History / Comment(s): carpal tunnel surgery right, R OUX-N-Y 2009 IN [place], right shoulder surgery X2 anastomosis SMALL BOWEL LYSIS OF ADHESIONS R/T SMALL BOWEL OBSTRUCTION, Left Inguinal hernia repair, epidural pain procedures Past Anesthesia/Blood Transfusion Reactions: No Reported Reaction Additional Past Anesthesia/Blood Transfusion Reaction / Comm: UNABLE TO URINATE AFTER LAP MADAY 01/17/17 Past Psychological History: Anxiety, Depression Smoking Status: Never smoker Past Alcohol Use History: None Reported Past Drug Use History: None Reported - Past Family History Mother Family Medical History: No Reported History Father Family Medical History: Deep Vein Thrombosis (DVT) Results - Labs 03/24/24 16:28 Bariatric Checklist Checklist: Plan: Checklist: EGD: 1. Hiatal hernia: 2. H. Pylori: HgbA1c: Vitamin D: Smoking: Never smoker Primary care physician referral: [facility] Psychiatry clearance: Cardiology clearance: Sleep study: Diet journal: VTE risk score: VTE risk level: Rehab needs at discharge:
[2024-03-24 16:54] VITALS: BP 127/82; PULSE 96; TEMP 98; BMI 40.8
[2024-03-24 17:19] LABS: Prothrombin Time 10.7 sec (10.0-12.5)
[2024-03-24 17:22] LABS: Partial Thromboplastin Time 21.5 sec (22.0-30.0)
[2024-03-25 03:39] LABS: Prealbumin 22.9 mg/dL (18.0-42.0)
[2024-03-25 03:59] LABS: ALT 28 U/L (10-49); AST 28 U/L (14-35); Albumin 3.5 g/dL (3.8-4.9); Albumin/Globulin Ratio 1.94 Ratio (1.60-3.17); Alkaline Phosphatase 116 U/L (41-126); BUN/Creat Ratio 15.46 Ratio (12.00-20.00); Blood Urea Nitrogen 20.1 mg/dL (9.0-27.0); Carbon Dioxide 24.1 mmol/L (21.6-31.8); Chloride 108 mmol/L (96-109); Globulin 1.8 g/dL (1.6-3.3); Glucose 93 mg/dL (70-110); Magnesium 1.8 mg/dL (1.5-2.4); Phosphorus 3.5 mg/dL (2.4-5.1); Potassium 4.8 mmol/L (3.5-5.5); Sodium 141 mmol/L (135-145); Total Bilirubin <0.2 mg/dL (0.3-1.2); Total Protein 5.3 g/dL (6.2-8.2)
[2024-03-25 10:33] LABS: Zinc, Serum 48 ug/dL (60-130)
[2024-03-26 07:01] LABS: Vitamin A 58 ug/dL (38-106)
[2024-03-26 07:15] LABS: Vit B1(Thiamine) 101 ug/L (38-122)
[2024-03-28 07:41] LABS: Selenium 116 mcg/L (63-160)
== END ==
LOC: BARWHC3 15:34
PROVIDERS: ATTEND Surgery Plastic and Reconstructive Surgery
DX: E66.01 Morbid (severe) obesity due to excess calories (principal); E89.1 Postprocedural hypoinsulinemia; K50.90 Crohn's disease, unspecified, without complications; K74.1 Hepatic sclerosis; N19 Unspecified kidney failure; T56.894A Toxic effect of other metals, undetermined, initial encounter; E11.40 Type 2 diabetes mellitus with diabetic neuropathy, unspecified; I10 Essential (primary) hypertension; K21.9 Gastro-esophageal reflux disease without esophagitis; R10.13 Epigastric pain; M47.816 Spondylosis without myelopathy or radiculopathy, lumbar region; R13.10 Dysphagia, unspecified; R10.31 Right lower quadrant pain; M79.3 Panniculitis, unspecified; K82.8 Other specified diseases of gallbladder; E53.9 Vitamin B deficiency, unspecified; K81.1 Chronic cholecystitis; Z71.3 Dietary counseling and surveillance; Z68.41 Body mass index [BMI] 40.0-44.9, adult; Z86.69 Personal history of other diseases of the nervous system and sense organs; Z98.84 Bariatric surgery status; Z90.3 Acquired absence of stomach [part of]; Z79.899 Other long term (current) drug therapy
CPT/HCPCS: 80053; 82525; 82607; 82746; 83036; 83735; 83970; 84100; 84134; 84255; 84425; 84590; 84630; 85610; 85730; 99211

== ENCOUNTER → 2024-05-12 | Outpatient (CLI) | payer MEDICARE, OTHER ==
[2024-05-12 15:43] LABS: T4, Free (Free Thyroxine) 1.04 ng/dL (0.80-1.80)
== END | disposition home or self-care (01) ==
LOC: LABWHC1 09:13
PROVIDERS: ATTEND Internal Medicine Interventional Cardiology
DX: R00.2 Palpitations (principal)
CPT/HCPCS: 36415; 84439; 84443

== ENCOUNTER → 2024-12-24 | Outpatient (CLI) | payer MEDICARE ==
--- NOTE | 2024-12-24 09:28 | FL ---
EXAMINATION TYPE: FL sniff test without CXR DATE OF EXAM: 12/24/2024 8:49 AM COMPARISON: Chest radiograph from CLINICAL INDICATION:Male, 54 years old with history of R06.02 Shortness of breath; TECHNIQUE: With the patient standing, fluoroscopy of the right and left hemidiaphragm was observed du ring normal resting respiration as well as deep inspiration, deep expiration, and "sniffing." Fluoroscopic time:28 seconds Fluoroscopic images:0 Radiographs taken: 7 DAP: 472 [id number] FINDINGS: [place] film demonstrates: no focal consolidation, pneumothorax, or pleural effusions. The cardiomedias tinal silhouette is within normal limits. There is elevation of the right hemidiaphragm. This is stab le and compared to previous chest radiograph. The left diaphragm contracts during inspiration. Both hemidiaphragms move together. Normal excursion is demonstrated of the left hemidiaphragm. The right diaphragm contracts during inspiration. Both hemidiaphragms move together. Normal excursion is demonstrated of the right hemidiaphragm. IMPRESSION: Normal sniff test. [facility], , 12/24/2024 9:25 AM
== END | disposition home or self-care (01) ==
LOC: RADFLMAIN 08:10
PROVIDERS: ATTEND Internal Medicine
DX: R06.02 Shortness of breath (principal)
CPT/HCPCS: 76000

== ENCOUNTER 2025-02-02 14:20 | Inpatient (IN) | payer MEDICARE ==
[2025-02-02 14:46] LABS: Glucose,Whole Blood 102 mg/dL (70-110)
[2025-02-02] MEDS: SODIUM CHLORIDE 0.9% 1,000 ML IV ONE (14:53)
--- NOTE | 2025-02-02 14:54 | ED ---
General Adult HPI - General Chief complaint: Chest Pain Stated complaint: L sided abd pain,Syncope Time Seen by Provider: 02/02/25 14:39 Source: patient Mode of arrival: ambulatory Limitations: no limitations - History of Present Illness Initial comments: Dictation was produced using [employer] dictation software. please excuse any grammatical, word or spelling errors. Chief Complaint: 54-year-old male with syncope abdominal pain History of Present Illness: Patient is a 54-year-old male with history of hypertension and bowel obstruction bariatric surgery states that today he had a sharp left lower quadrant abdominal pain. States the pain radiate down his left upper extremity. Denies any lower extremity symptoms. Denies any tingling to his arm however does have some pain. Patient was passing out and had a syncopal episode. Patient does have hypertension takes hypertensive medications. The ROS documented in this emergency department record has been reviewed and confirmed by me. Those systems with pertinent positive or negative responses have been documented in the HPI. All other systems are other negative and/or noncontributory. - Related Data Home Medications Medication Instructions Recorded Confirmed Sertraline [Zoloft] 100 mg PO HS 12/25/16 03/26/24 Sildenafil Citrate 20 mg PO DAILY PRN 05/12/19 03/26/24 Multivit-Min/Folic/Vit K/Lycop 1 tab PO DAILY 09/01/19 03/26/24 [Men's Multivitamin Tablet] traMADol HCL [Ultram] 50 mg PO TID PRN 09/01/19 03/26/24 Diclofenac Sodium [Voltaren Gel] 1 applic TOPICAL BID PRN 07/19/20 03/26/24 Losartan Potassium 50 mg PO DAILY 08/23/20 03/26/24 Omeprazole [PriLOSEC] 40 mg PO DAILY 04/13/21 03/26/24 Albuterol Inhaler [Ventolin Hfa 2 puff INHALATION RT-BID PRN 08/27/21 03/26/24 Inhaler] Previous Rx's Medication Instructions Recorded Dicyclomine [Bentyl] 20 mg PO TID PRN #14 tablet 08/27/21 Allergies Allergy/AdvReac Type Severity Reaction Status Date / Time No Known Allergies Allergy Verified 02/02/25 14:37 Review of Systems ROS Statement: Those systems with pertinent positive or pertinent negative responses have been documented in the HPI. ROS Other: All systems not noted in ROS Statement are negative. Past Medical History Past Medical History: GERD/Reflux, Hypertension, Musculoskeletal Disorder Additional Past Medical History / Comment(s): HERNIATED DISCS , BACK PAIN & NERVE PAIN IN LEGS., SLEEP APNEA AND DIABETES RESOLVED WITH WEIGHT LOSS., HAND TREMORS., SEASONAL ALLERGIES, recent abd. pain, occasional dysphagia History of Any Multi-Drug Resistant Organisms: None Reported Past Surgical History: Adenoidectomy, Appendectomy, Bariatric Surgery, Cholecystectomy, Hernia Repair, Orthopedic Surgery, Tonsillectomy Additional Past Surgical History / Comment(s): carpal tunnel surgery right, PEDRO-N-Y 2009 IN [place], right shoulder surgery X2 anastomosis SMALL BOWEL LYSIS OF ADHESIONS R/T SMALL BOWEL OBSTRUCTION, Left Inguinal hernia repair, epidural pain procedures Past Anesthesia/Blood Transfusion Reactions: No Reported Reaction Additional Past Anesthesia/Blood Transfusion Reaction / Comment(s): UNABLE TO URINATE AFTER LAP MADAY 01/17/17 Past Psychological History: Anxiety, Depression Smoking Status: Never smoker Past Alcohol Use History: None Reported Past Drug Use History: None Reported - Past Family History Mother Family Medical History: No Reported History Father Family Medical History: Deep Vein Thrombosis (DVT) General Exam - General Exam Comments Initial Comments: PHYSICAL EXAM: General Impression: Alert and oriented x3,, mild distress secondary to pain HEENT: Normocephalic atraumatic, extra-ocular movements intact, pupils equal and reactive to light bilaterally, mucous membranes moist. Cardiovascular: Heart regular rate and rhythm Chest: Able to complete full sentences, no retractions, no tachypnea Abdomen: abdomen soft, mild palpatory tenderness to the left lower quadrant, non-distended, no organomegaly Musculoskeletal: Pulses present and equal in all extremities, no peripheral edema Motor: no focal deficits noted Neurological: CN II-XII grossly intact, no focal motor or sensory deficits noted Skin: Intact with no visualized rashes Psych: Normal affect and mood Limitations: no limitations Course Vital Signs 02/02/25 02/02/25 02/02/25 14:30 14:48 15:10 Temperature 97.6 F Pulse Rate 112 H 108 H 94 Respiratory 18 16 Rate Blood Pressure 87/61 72/53 90/67 O2 Sat by Pulse 95 98 98 Oximetry 02/02/25 02/02/25 02/02/25 15:28 15:47 17:00 Temperature Pulse Rate 81 80 73 Respiratory 12 18 18 Rate Blood Pressure 86/63 91/63 99/80 O2 Sat by Pulse 99 98 98 Oximetry 02/02/25 18:00 Temperature Pulse Rate 81 Respiratory Rate Blood Pressure 99/70 O2 Sat by Pulse 96 Oximetry EKG Findings - EKG Comments: EKG Findings:: My EKG interpretation: Ventricular rate 102, sinus tachycardia,. 129, QRS 80, QTc 371. No NM prolongation, no QTC prolongation, no ST or T-wave changes noted. Overall, this EKG is unremarkable Medical Decision Making - Medical Decision Making Was pt. sent in by a medical professional or institution (, PA, SENIOR SOFTWARE PROJECT MANAGER, urgent care, hospital, or prison...) When possible be specific @ -No Did you speak to anyone other than the patient for history (EMS, parent, family, police, friend...)? What history was obtained from this source @ -No Did you review nursing and triage notes (agree or disagree)? Why? @ -I reviewed and agree with nursing and triage notes Were old charts reviewed (outside hosp., previous admission, EMS record, old EKG, old radiological studies, urgent care reports/EKG's, prison records)? Report findings @ -No old charts were reviewed Differential Diagnosis (chest pain, altered mental status, abdominal pain women, abdominal pain men, vaginal bleeding, musculoskeletal, weakness, fever, dyspnea, syncope, headache, dizziness, GI bleed, back pain, seizure, CVA, palpatations, mental health)? @ -Differential Syncope: Valvular disease, hypertrophic cardiomyopathy, pulmonary embolism, tamponade, tachycardia, bradycardia, MD, hypovolemia, hemorrhage, dissection, anemia, intracranial hemorrhage, seizure, hypoglycemia, carbon monoxide poisoning, this is not meant to be an all-inclusive list. EKG interpreted by me (3pts min.). @ -See above X-rays interpreted by me (1pt min.). @ -None done CT interpreted by me (1pt min.). @ -CT angiography of thoracic aorta, abdomen pelvis shows no acute processes U/S interpreted by me (1pt. min.). @ -None done What testing was considered but not performed or refused? (CT, X-rays, U/S, labs)? Why? @ -None What meds were considered but not given or refused? Why? @ -None Was smoking cessation discussed for >3mins.? @ -No Were there social determinants of health that impacted care today? How? (Homelessness, low income, unemployed, alcoholism, drug addiction, transportation, low edu. Level, literacy, decrease access to med. care, long term, rehab)? @ -No Was there de-escalation of care discussed even if they declined (Discuss DNR or withdrawal of care, Hospice)? DNR status @ -No What co-morbidities impacted this encounter? (DM, HTN, Smoking, COPD, CAD, Cancer, CVA, ARF, Chemo, Hep., AIDS, mental health diagnosis, sleep apnea, morbid obesity)? @ -None Was patient admitted / discharged? Hospital course, mention meds given and route, prescriptions, significant lab abnormalities, going to OR and other pertinent info. @ -54-year-old male presents emergency department after syncope. He is found t o be hypotensive in triage. Initial blood pressure was 87/61. Patient moved into trauma bay #1 is found have blood pressure of 72/53. Patient given IV fluids with improvement of blood pressure. Patient had associated abdominal pain. CT angiography of the chest abdomen pelvis was obtained showing no acute findings. Patient tolerating oral intake. Patient given IV fluids will be admitted for medical monitoring. Case discussed with hospitalist for admission Did you discuss the management of the patient with other professionals (professionals i.e. , PA, SENIOR SOFTWARE PROJECT MANAGER, lab, RT, psych nurse, social sciences instructor, inventory accountant, teacher, licensed mortgage loan officer, case management social worker)? Give summary @ -No Was critical care preformed (if so, how long)? @ -Yes, 33 minutes Undiagnosed new problem with uncertain prognosis? @ -No Drug Therapy requiring intensive monitoring for toxicity (Heparin, Nitro, Insulin, Cardizem)? @ -No Were any procedures done? @ -No Diagnosis/symptom? Acute, or Chronic, or Acute on Chronic? Uncomplicated (without systemic symptoms) or Complicated (systemic symptoms)? @ -Hypotension, Syncope Side effects of treatment? @ -No Exacerbation, Progression, or Severe Exacerbation? @ -No Poses a threat to life or bodily function? How? (Chest pain, USA, MD, pneumonia, PE, COPD, DKA, ARF, appy, cholecystitis, CVA, Diverticulitis, Homicidal, Suicidal, threat to staff... and all critical care pts) @ -yes - Lab Data Result diagrams: 02/02/25 15:03 02/02/25 15:03 Lab Results 02/02/25 02/02/25 02/02/25 Range/Units 14:45 15:03 15:03 WBC 9.0 (3.8-10.6) k/uL RBC 6.40 H (4.30-5.90) m/uL Hgb 17.0 (13.0-17.5) gm/dL Hct 55.2 H (39.0-53.0) % MCV 86.2 (80.0-100.0) fL MCH 26.5 (25.0-35.0) pg MCHC 30.8 L (31.0-37.0) g/dL RDW 14.1 (11.5-15.5) % Plt Count 379 (150-450) k/uL MPV 7.1 Neutrophils % 56 % Lymphocytes % 28 % Monocytes % 9 % Eosinophils % 4 % Basophils % 1 % Neutrophils # 5.1 (1.3-7.7) k/uL Lymphocytes # 2.5 (1.0-4.8) k/uL Monocytes # 0.8 (0-1.0) k/uL Eosinophils # 0.3 (0-0.7) k/uL Basophils # 0.1 (0-0.2) k/uL Hypochromasia Moderate PT 13.1 H (10.0-12.5) sec INR 1.2 H (<1.2) APTT 24.0 (22.0-30.0) sec Sodium (137-145) mmol/L Potassium (3.5-5.1) mmol/L Chloride (98-107) mmol/L Carbon Dioxide (22-30) mmol/L Anion Gap mmol/L BUN (9-20) mg/dL Creatinine (0.66-1.25) mg/dL Est GFR (CKD-EPI)AfAm (>60 ml/min/1.73 sqM) Est GFR (CKD-EPI)NonAf (>60 ml/min/1.73 sqM) Glucose (74-99) mg/dL POC Glucose (mg/dL) 102 (70-110) mg/dL POC Glu Scrap Shear Operator ID Malou Rivera Calcium (8.4-10.2) mg/dL Total Bilirubin (0.2-1.3) mg/dL AST (17-59) U/L ALT (4-49) U/L Alkaline Phosphatase (38-126) U/L Troponin I (0.000-0.034) ng/mL Total Protein (6.3-8.2) g/dL Albumin (3.5-5.0) g/dL Influenza Type A (PCR) (Not Detectd) Influenza Type B (PCR) (Not Detectd) RSV (PCR) (Not Detectd) SARS-CoV-2 (PCR) (Not Detectd) 02/02/25 02/02/25 02/02/25 Range/Units 15:03 15:03 16:14 WBC (3.8-10.6) k/uL RBC (4.30-5.90) m/uL Hgb (13.0-17.5) gm/dL Hct (39.0-53.0) % MCV (80.0-100.0) fL MCH (25.0-35.0) pg MCHC (31.0-37.0) g/dL RDW (11.5-15.5) % Plt Count (150-450) k/uL MPV Neutrophils % % Lymphocytes % % Monocytes % % Eosinophils % % Basophils % % Neutrophils # (1.3-7.7) k/uL Lymphocytes # (1.0-4.8) k/uL Monocytes # (0-1.0) k/uL Eosinophils # (0-0.7) k/uL Basophils # (0-0.2) k/uL Hypochromasia PT (10.0-12.5) sec INR (<1.2) APTT (22.0-30.0) sec Sodium 139 (137-145) mmol/L Potassium 4.5 (3.5-5.1) mmol/L Chloride 107 (98-107) mmol/L Carbon Dioxide 21 L (22-30) mmol/L Anion Gap 11 mmol/L BUN 36 H (9-20) mg/dL Creatinine 1.60 H (0.66-1.25) mg/dL Est GFR (CKD-EPI)AfAm 56 (>60 ml/min/1.73 sqM) Est GFR (CKD-EPI)NonAf 48 (>60 ml/min/1.73 sqM) Glucose 87 (74-99) mg/dL POC Glucose (mg/dL) (70-110) mg/dL POC Glu Scrap Shear Operator ID Calcium 9.4 (8.4-10.2) mg/dL Total Bilirubin 0.4 (0.2-1.3) mg/dL AST 37 (17-59) U/L ALT 42 (4-49) U/L Alkaline Phosphatase 118 (38-126) U/L Troponin I <0.012 (0.000-0.034) ng/mL Total Protein 6.1 L (6.3-8.2) g/dL Albumin 3.6 (3.5-5.0) g/dL Influenza Type A (PCR) Not Detected (Not Detectd) Influenza Type B (PCR) Not Detected (Not Detectd) RSV (PCR) Not Detected (Not Detectd) SARS-CoV-2 (PCR) Not Detected (Not Detectd) Disposition Clinical Impression: Hypotension, Syncope Disposition: ADMITTED IP TO THIS HOSP Condition: Serious Referrals: Oscar Wild MD [Primary Care Provider] - 1-2 days Decision Time: 18:20
[2025-02-02 15:15] LABS: ALT 42 U/L (4-49); AST 37 U/L (17-59); African American GFR (CKD) 56 (>60 ml/min/1.73 sqM); Albumin 3.6 g/dL (3.5-5.0); Alkaline Phosphatase 118 U/L (38-126); Anion Gap 11 mmol/L; Blood Urea Nitrogen 36 mg/dL (9-20); Calcium 9.4 mg/dL (8.4-10.2); Carbon Dioxide 21 mmol/L (22-30); Chloride 107 mmol/L (98-107); Glucose 87 mg/dL (74-99); Non-African American GFR(CKD) 48 (>60 ml/min/1.73 sqM); Potassium 4.5 mmol/L (3.5-5.1); Sodium 139 mmol/L (137-145); Total Bilirubin 0.4 mg/dL (0.2-1.3); Total Protein 6.1 g/dL (6.3-8.2)
[2025-02-02 15:16] LABS: INR 1.2 (<1.2); Prothrombin Time 13.1 sec (10.0-12.5)
[2025-02-02 15:40] LABS: Basophils # (A) 0.1 k/uL (0-0.2); Basophils % (A) 1 %; Eosinophils # (A) 0.3 k/uL (0-0.7); Eosinophils % (A) 4 %; Hypochromasia Moderate; Lymphocytes # (A) 2.5 k/uL (1.0-4.8); Lymphocytes % (A) 28 %; MCH 26.5 pg (25.0-35.0); MCHC 30.8 g/dL (31.0-37.0); MCV 86.2 fL (80.0-100.0); Mean Platelet Volume 7.1; Monocytes # (A) 0.8 k/uL (0-1.0); Monocytes % (A) 9 %; Neutrophils # (A) 5.1 k/uL (1.3-7.7); Neutrophils % (A) 56 %; Platelet Count 379 k/uL (150-450); RDW 14.1 % (11.5-15.5)
--- NOTE | 2025-02-02 15:40 | CT ---
CTA chest, abdomen and pelvis. HISTORY: Hypotension and abdominal and chest pain. Rule out dissection. COMPARISON: None TECHNIQUE: Multiple axial images are obtained through the chest, abdomen and pelvis before and after the uneventful administration of nonionic IV contrast. The exam was performed according to the [facility], [place] CTPA protocol. IMAGES were generated and reviewed. FINDINGS: CTA chest and abdomen: There is no aneurysm or dissection of the thoracic or abdominal aorta. There is no retroperitoneal ad enopathy or hemorrhage. CT chest nonvascular: There is no suspicious lung mass or nodule. There is no airspace consolidation or abnormal interstitial density. There is no pleural effusion or pneumothorax. There is no mediastinal, hilar or axillary adenopathy. CT abdomen pelvis nonvascular: There is surgical absence of the gallbladder. There is no focal mass or organomegaly involving the liver, pancreas, spleen and adrenal glands. There is no solid renal mass or hydronephrosis. The bowel loops are normal in caliber and there is no dilatation or obstruction. No inflammatory wilkins ges are identified in the bowel wall and mesentery. There is no free intraperitoneal air or fluid. No pelvic mass, free fluid, abscess or adenopathy. There are no focal osseous lesions. There are postsurgical changes involving the stomach and proximal small bowel as well as gastric bypa ss procedure. IMPRESSION: No evidence of dissection or aneurysm of the thoracic or abdominal aorta. Post surgical changes of ga stric bypass with no other significant abnormality seen. [facility], , 02/02/2025 3:37 PM
[2025-02-02 15:45] LABS: HCT 55.2 % (39.0-53.0)
[2025-02-02] MEDS: SODIUM CHLORIDE 0.9% 1,000 ML IV STA (16:05)
[2025-02-02 16:59] LABS: Influenza A Not Detected (Not Detectd); Influenza B Not Detected (Not Detectd); RSV Not Detected (Not Detectd)
[2025-02-02] MEDS ORDERED: NALOXONE 0.4 MG/ML 1 ML VIAL IV PRN (18:17)
[2025-02-02] MEDS: SODIUM CHLORIDE 0.9% 1,000 ML IV SCH (18:52)
[2025-02-02 19:45] LABS: Appearance,Urine Clear (Clear); Bilirubin,Urine Negative (Negative); Blood,Urine Negative (Negative); Color,Urine Colorless; Glucose,Urine (UA) Negative (Negative); Ketones,Urine Negative (Negative); Leukocyte Esterase,Urine Negative (Negative); Nitrite,Urine Negative (Negative); PH, Urine 5.5 (5.0-8.0); Protein,Urine Negative (Negative); Urobilinogen,Urine <2.0 mg/dL (<2.0)
[2025-02-03] MEDS ORDERED: ALBUTEROL NEBULIZED 2.5 MG/3 ML INHALATION PRN (09:26)
[2025-02-03] MEDS: ATORVASTATIN 20 MG TAB PO SCH (10:06)
[2025-02-03] MEDS: MULTIVITAMINS, THERA 1 EACH TAB PO SCH (10:06)
[2025-02-03] MEDS: PANTOPRAZOLE 40 MG TABLET PO SCH (10:06)
--- NOTE | 2025-02-03 10:24 | US ---
EXAMINATION TYPE: US carotid duplex BILAT DATE OF EXAM: 02/03/2025 COMPARISON: NONE CLINICAL INDICATION: Male, 54 years old with history of syncopal; Syncope Additional History: .... TECHNIQUE: Grayscale, color Doppler and spectral Doppler evaluation of the bilateral carotid systems and vertebral arteries. Indirect Doppler criteria was utilized. 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 Spectral waveforms are within normal limits. IMPRESSION: Elevated peak systolic velocity in the bilateral common carotid arteries raises concern for uncontrolled hypertension. Right: No hemodynamically significant stenosis. Left: No hemodynamically significant stenosis. Criteria for Assigning % of Stenosis / Diameter reduction (Estimation based on the indirect measurements of the internal carotid artery velocities (ICA PSV). 1. Normal (no stenosis)=ICA PSV < 125 cm/s: ratio < 2.0: ICA EDV<40 cm/s. 2. Less than 50% stenosis=ICA PSV < 125 cm/s: ratio < 2.0: ICA EDV<40 cm/s. 3. 50 to 69% stenosis=ICA PSV of 125 to 230 cm/s: ration 2.0 ? 4.0: ICA EDV 40-100 cm/s. 4. Greater than 70% stenosis to near occlusion= ICA PSV > 230 cm/s: ratio > 4.0: ICA EDV > 100 cm/s. 5. Near occlusion= ICA PSV velocities may be low or undetectable: variable ratio and ICA EDV. 6. Total occlusion=unable to detect flow. [facility], , 02/03/2025 10:22 AM
--- NOTE | 2025-02-03 13:40 | P.CRDCN ---
History of Present Illness Consult date: 02/03/25 Reason for Consult (text): Syncope, hypotension History of present illness: This is a 54-year-old male patient of Dr. NILA Donahue with past medical history of hypertension, hyperlipidemia, obesity s/p gastric bypass. We have been asked to evaluate the patient for syncope and hypotension. Patient states that he developed sharp pain in the left lower rib area it was worse with deep breathing and with moving. He first noticed it when he was picking up his granddaughter. He also had an episode walking out to his car when he fainted. He is not normally physically active. 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 Blood pressure 101/64, heart rate 66, pulse ox 96% on room air. Patient presented with a blood pressure as low as 72/53. -EKG: Sinus tachycardia 102 bpm -CTA chest, abdomen and pelvis: No evidence of dissection or aneurysm of the thoracic or abdominal aorta. Postsurgical changes of gastric bypass with no significant abnormality seen. -Carotid duplex: No hemodynamically significant stenosis. -Laboratory studies: WBC 9, hemoglobin 17, BUN 36 creatinine 1.6. Troponin negative x 1. Cepheid viral panel not detected. -Home cardiac medications: Aspirin 650 mg daily in the 325 mg at bedtime, Lipitor 20 mg daily, losartan 50 mg daily, Toprol-XL 25 mg daily. -Echocardiogram performed in the office on 12/20/2021: EF 55%, mild mitral regurgitation, mild tricuspid regurgitation, PASP 24 mmHg. -Lexiscan Cardiolite stress test performed 01/03/2022: By EKG criteria unremarkable Lexiscan stress test. Normal MPI with normal ejection fraction wit hout stress-induced ischemia. Review Of Systems: At the time of my exam: CONSTITUTIONAL: Denies fever or chills. HEENT: Denies blurred vision, vision changes, or eye pain. Denies hemoptysis CARDIOVASCULAR: Denies chest pain. Denies orthopnea. Denies PND. Denies palpitations RESPIRATORY: Denies shortness of breath. GASTROINTESTINAL: Denies abdominal pain. Denies nausea or vomiting. HEMATOLOGIC: Denies bleeding disorders. GENITOURINARY: Denies any blood in urine. SKIN: Denies puritis. Denies rash. Physical examination: Gen: This is a obese black 54-year-old male in no acute distress VS: reviewed HEENT: Head is atraumatic, normocephalic. Pupils equal, round. Sclerae is anicteric. NECK: Supple. No JVD. LUNGS: Clear to auscultation. No wheezes or rhonchi. No intercostal retractions. HEART: Regular rate and rhythm. No murmur. ABDOMEN: Soft No tenderness. EXTREMITIES: No pedal edema. No calf tenderness. NEUROLOGICAL: Patient is awake, alert and oriented x3. Assessment: Syncope possibly due to pain or dehydration Hypotension Elevated D-dimer at 0.76 Left lower rib pain Acute kidney injury Hypertension history Hyperlipidemia Obesity status post gastric bypass Plan: Resume patient's home cardiac medications Hold losartan for hypotension Continue IV fluids for dehydration Order VQ scan to rule out PE Obtain 2-D echocardiogram and Doppler study to assess cardiac structure and function Further recommendations to follow based upon clinical course Thank you kindly for this consultation. Nurse practitioner note has been reviewed, I agree with documented findings and plan of care. Patient was seen and examined. Past Medical History Past Medical History: GERD/Reflux, Hypertension, Musculoskeletal Disorder Additional Past Medical History / Comment(s): HERNIATED DISCS , BACK PAIN & NERVE PAIN IN LEGS., SLEEP APNEA AND DIABETES RESOLVED WITH WEIGHT LOSS., HAND TREMORS., SEASONAL ALLERGIES, recent abd. pain, occasional dysphagia History of Any Multi-Drug Resistant Organisms: None Reported Past Surgical History: Adenoidectomy, Appendectomy, Bariatric Surgery, Cholecystectomy, Hernia Repair, Orthopedic Surgery, Tonsillectomy Additional Past Surgical History / Comment(s): carpal tunnel surgery right, PEDRO-N-Y 2009 IN [place], right shoulder surgery X2 anastomosis SMALL BOWEL LYSIS OF ADHESIONS R/T SMALL BOWEL OBSTRUCTION, Left Inguinal hernia repair, epidural pain procedures Past Anesthesia/Blood Transfusion Reactions: No Reported Reaction Additional Past Anesthesia/Blood Transfusion Reaction / Comment(s): UNABLE TO URINATE AFTER LAP MADAY 01/17/17 Past Psychological History: Anxiety, Depression Smoking Status: Never smoker Past Alcohol Use History: None Reported Past Drug Use History: None Reported - Past Family History Mother Family Medical History: No Reported History Father Family Medical History: Deep Vein Thrombosis (DVT) Medications and Allergies Home Medications Medication Instructions Recorded Confirmed Type Sertraline [Zoloft] 100 mg PO DAILY 12/25/16 02/02/25 History Multivit-Min/Folic/Vit K/Lycop 1 tab PO DAILY 09/01/19 02/02/25 History [Men's Multivitamin Tablet] Losartan Potassium 50 mg PO DAILY 08/23/20 02/02/25 History Omeprazole [PriLOSEC] 40 mg PO AC-BRKFST 04/13/21 02/02/25 History Albuterol Inhaler [Ventolin Hfa 2 puff INHALATION RT-QID PRN 08/27/21 02/02/25 History Inhaler] Aspirin EC [Ecotrin] 325 mg PO HS 02/02/25 02/02/25 History Aspirin EC [Ecotrin] 650 mg PO DAILY 02/02/25 02/02/25 History Atorvastatin [Lipitor] 20 mg PO DAILY 02/02/25 02/02/25 History Cyclobenzaprine [Flexeril] 10 mg PO HS 02/02/25 02/02/25 History Latanoprost [Latanoprost 0.005%] 1 drop BOTH EYES HS 02/02/25 02/02/25 History Metoprolol Succinate (ER) [Toprol 25 mg PO DAILY 02/02/25 02/02/25 History Xl] Pepto-Bismol Tablet 262mg 524 mg PO Q1H PRN 02/02/25 02/02/25 History Tamsulosin [Flomax] 0.4 mg PO DAILY 02/02/25 02/02/25 History Zinc Gluconate [Zinc] 100 mg PO BID 02/02/25 02/02/25 History diphenhydrAMINE HCL [Benadryl] 50 mg PO HS 02/02/25 02/02/25 History tadalafiL 20 mg PO DAILY PRN 02/02/25 02/02/25 History Allergies Allergy/AdvReac Type Severity Reaction Status Date / Time No Known Allergies Allergy Verified 02/02/25 19:24 Physical Exam Vitals: Vital Signs Temp Pulse Resp BP Pulse Ox 02/03/25 05:00 66 16 101/64 02/03/25 01:15 70 18 97/60 02/02/25 22:00 76 16 92/66 96 02/02/25 18:57 83 16 89/56 99 02/02/25 18:00 81 99/70 96 02/02/25 17:00 73 18 99/80 98 02/02/25 15:47 80 18 91/63 98 02/02/25 15:28 81 12 86/63 99 02/02/25 15:10 94 16 90/67 98 02/02/25 14:48 108 H 72/53 98 02/02/25 14:30 97.6 F 112 H 18 87/61 95 Results 02/02/25 15:03 02/02/25 15:03 Cardiac Enzymes 02/02/25 02/02/25 Range/Units 15:03 15:03 AST 37 (17-59) U/L Troponin I <0.012 (0.000-0.034) ng/mL Coagulation 02/02/25 Range/Units 15:03 PT 13.1 H (10.0-12.5) sec APTT 24.0 (22.0-30.0) sec CBC 02/02/25 Range/Units 15:03 WBC 9.0 (3.8-10.6) k/uL RBC 6.40 H (4.30-5.90) m/uL Hgb 17.0 (13.0-17.5) gm/dL Hct 55.2 H (39.0-53.0) % Plt Count 379 (150-450) k/uL Comprehensive Metabolic Panel 02/02/25 Range/Units 15:03 Sodium 139 (137-145) mmol/L Potassium 4.5 (3.5-5.1) mmol/L Chloride 107 (98-107) mmol/L Carbon Dioxide 21 L (22-30) mmol/L BUN 36 H (9-20) mg/dL Creatinine 1.60 H (0.66-1.25) mg/dL Glucose 87 (74-99) mg/dL Calcium 9.4 (8.4-10.2) mg/dL AST 37 (17-59) U/L ALT 42 (4-49) U/L Alkaline Phosphatase 118 (38-126) U/L Total Protein 6.1 L (6.3-8.2) g/dL Albumin 3.6 (3.5-5.0) g/dL Current Medications Generic Name Dose Route Start Last Admin Trade Name Freq PRN Reason Stop Dose Admin Sodium Chloride 1,000 mls @ 75 mls/hr 02/02/25 18:30 02/02/25 18:52 Saline 0.9% IV 75 mls/hr .[id number] ROBBY Administration Naloxone HCl 0.2 mg 02/02/25 18:17 Naloxone 0.4 Mg/Ml 1 Ml Vial IV Q2M PRN Opioid Reversal 02/02/25 15:03 02/02/25 15:03
--- NOTE | 2025-02-03 14:24 | P.HPIM ---
History of Present Illness H&P Date: 02/03/25 (Hypotension and syncopal episode) Chief Complaint: Mr. Glover brought by his to the emergency room after he had syncopal History and physical Dictation by Dr. Wild Date of service 02/03/2025. Location seen in the emergency department room #3. Chief complaint: Patient was riding his car with his and he stopped to the groceries as he came out of the car he fell down and was out of conscious last 5 minutes then he gained his conscious back and his drove him to the ER he was complaining with his left side of the abdomen pain. At this time in the ER they did CT scan of abdomen and pelvis. And they stated in the note that he had a chest pain. History of present illness: Patient started this day today with the donating plasma in the plasma center and he stated that he felt fine after the plasma and his blood pressure was systolic around 124 and he was feeling okay They were driving and about evening the 3 hours after his donating the plasma and he came out of the car and then collapsed he stated that he lost consciousness for 5 minutes and he had a pain in the left side of the abdomen but he had constipation for a few days. In the ER they did a CT scan and laboratories as well and then they called me to admit the patient due to his presence of hypotension presentation in the ER. And persistent during his presence in the emergency room. It was a CT of the abdomen and the chest which indicating no airspace consolidation no pleural effusion no mediastinal or hilar or axillary lymphadenopathy and in the CT of the abdomen and pelvis found to have surgical absence of gallbladder no focal mass or organomegaly involving the liver or pancreas or spleen or adrenal glands and no solid renal mass or hydro nephrosis the bowel loops are normal in caliber no dilatation or obstruction no inflammatory changes to be identified identified in the bowel or mesentery no free intraperitoneal air or fluid no pelvic masses or abscesses there is no fo joseph osseous lesion and there is a post surgical changes involving the stomach and the small bowel from gastric bypass procedure. As patient admitted to the hospital and consultation with cardiology with the underlying hypotension and syncopal episode. Past medical history: Patient has underlying GERD disease Erectile dysfunction Hypertension Chronic back pain was treated by Dr. Mills and Dr. Saleh orthopedic associate. Sleep apnea Hyperlipidemia. Diabetes mellitus type 2 Surgical history he had gastric bypass graft Social history have a daughter 5 sons. Chronic back pain. History of COPD. Anemia Bipolar disorder Diarrhea Essential hypertension Anxiety disorder. Review of system Neuropsychiatry as mentioned above with bipolar and depression and anxiety Cardiovascular history of hypertension currently hypotension with the blood pressure was low with a systolic in the hospital recorded as 87/61 on presentation in the ER and he was weak Chest history of COPD no shortness of breath GI he stated that he had left side of the abdomen was painful at the time he had his syncopal episode however the CT scan was not indicating a problem except that he had surgical removal of the gallbladder and gastric bypass Genitourinary he has erectile dysfunction. Musculoskeletal he was able to ambulate and give regular plasma. Review of the rest of the 14 Arch[place]ta was negative On the examination: Temperature 97.6 Heart rate 112 with tachycardia. Blood pressure 87/61 with a mean 69 Pulse ox on room air 95%. On the exam On the exam HEENT, head was normocephalic atraumatic pupil was equal reactive and normal hearing and has natural teeth and normal swallowing normal speech Neck supple no JVD no thyromegaly no lymphadenopathy trachea midline Chest clear to auscultation and percussion no wheezes no rhonchi's Abdomen morbidly obese, positive bowel sound and minimal discomfort on the left side of the abdomen no rebound tenderness and the abdominal CT was negative Extremities: No edema and positive pulses. Neurologically patient stable moving 4 extremities able to go to the bathroom and have a BM at the time my presence in the exam room and no lateralizing sign. He had history the with the physical therapy and the orthopedic associated Dr. Mills for his back with chronic arthritis and they treated him with the muscle relaxant. He had history of bipolar and as well anxiety seem to me that he is going to the [facility]. Assessment: 1. Syncopal episode etiology is unclear 2. Hypotension 3. Possibly the effect of donating plasma. And 4. Carotid artery disease 5. Severe hypotension. Cardiology consultation was requested. Plan: 1. Medications will be withheld specially medication for hypertension and as well as erectile dysfunction medication, losartan, metoprolol. 2. Continue with current medication for diabetes and we will add insulin to scale Will continue IV fluid. And will wait for the cardiology evaluation and treatment. 3. Obtaining carotid duplex study to rule out any carotid stenosis. And for thorough assessment depend on the patient condition and treatment. Past Medical History Past Medical History: GERD/Reflux, Hypertension, Musculoskeletal Disorder Additional Past Medical History / Comment(s): HERNIATED DISCS , BACK PAIN & NERVE PAIN IN LEGS., SLEEP APNEA AND DIABETES RESOLVED WITH WEIGHT LOSS., HAND TREMORS., SEASONAL ALLERGIES, recent abd. pain, occasional dysphagia History of Any Multi-Drug Resistant Organisms: None Reported Past Surgical History: Adenoidectomy, Appendectomy, Bariatric Surgery, Cholecystectomy, Hernia Repair, Orthopedic Surgery, Tonsillectomy Additional Past Surgical History / Comment(s): carpal tunnel surgery right, PEDRO-N-Y 2009 IN [place], right shoulder surgery X2 anastomosis SMALL BOWEL LYSIS OF ADHESIONS R/T SMALL BOWEL OBSTRUCTION, Left Inguinal hernia repair, epidural pain procedures Past Anesthesia/Blood Transfusion Reactions: No Reported Reaction Additional Past Anesthesia/Blood Transfusion Reaction / Comment(s): UNABLE TO URINATE AFTER LAP MADAY 01/17/17 Past Psychological History: Anxiety, Depression Smoking Status: Never smoker Past Alcohol Use History: None Reported Past Drug Use History: None Reported - Past Family History Mother Family Medical History: No Reported History Father Family Medical History: Deep Vein Thrombosis (DVT) Medications and Allergies Home Medications Medication Instructions Recorded Confirmed Type Sertraline [Zoloft] 100 mg PO DAILY 12/25/16 02/02/25 History Multivit-Min/Folic/Vit K/Lycop 1 tab PO DAILY 09/01/19 02/02/25 History [Men's Multivitamin Tablet] Losartan Potassium 50 mg PO DAILY 08/23/20 02/02/25 History Omeprazole [PriLOSEC] 40 mg PO AC-BRKFST 04/13/21 02/02/25 History Albuterol Inhaler [Ventolin Hfa 2 puff INHALATION RT-QID PRN 08/27/21 02/02/25 History Inhaler] Aspirin EC [Ecotrin] 325 mg PO HS 02/02/25 02/02/25 History Aspirin EC [Ecotrin] 650 mg PO DAILY 02/02/25 02/02/25 History Atorvastatin [Lipitor] 20 mg PO DAILY 02/02/25 02/02/25 History Cyclobenzaprine [Flexeril] 10 mg PO HS 02/02/25 02/02/25 History Latanoprost [Latanoprost 0.005%] 1 drop BOTH EYES HS 02/02/25 02/02/25 History Metoprolol Succinate (ER) [Toprol 25 mg PO DAILY 02/02/25 02/02/25 History Xl] Pepto-Bismol Tablet 262mg 524 mg PO Q1H PRN 02/02/25 02/02/25 History Tamsulosin [Flomax] 0.4 mg PO DAILY 02/02/25 02/02/25 History Zinc Gluconate [Zinc] 100 mg PO BID 02/02/25 02/02/25 History diphenhydrAMINE HCL [Benadryl] 50 mg PO HS 02/02/25 02/02/25 History tadalafiL 20 mg PO DAILY PRN 02/02/25 02/02/25 History Allergies Allergy/AdvReac Type Severity Reaction Status Date / Time No Known Allergies Allergy Verified 02/02/25 19:24 Physical Exam Vitals: Vital Signs Temp Pulse Resp BP Pulse Ox 02/03/25 13:05 103 H 18 137/90 97 02/03/25 10:04 93 18 118/76 97 02/03/25 05:00 66 16 101/64 02/03/25 01:15 70 18 97/60 02/02/25 22:00 76 16 92/66 96 02/02/25 18:57 83 16 89/56 99 02/02/25 18:00 81 99/70 96 02/02/25 17:00 73 18 99/80 98 02/02/25 15:47 80 18 91/63 98 02/02/25 15:28 81 12 86/63 99 02/02/25 15:10 94 16 90/67 98 02/02/25 14:48 108 H 72/53 98 02/02/25 14:30 97.6 F 112 H 18 87/61 95 Intake and Output 02/02/25 02/03/25 02/03/25 22:59 06:59 14:59 Other: Weight 120.202 kg Results CBC & Chem 7: 02/02/25 15:03 02/02/25 15:03 Labs: Abnormal Lab Results - Last 24 Hours (Table) 02/02/25 02/02/25 02/02/25 Range/Units 15:03 15:03 15:03 RBC 6.40 H (4.30-5.90) m/uL Hct 55.2 H (39.0-53.0) % MCHC 30.8 L (31.0-37.0) g/dL PT 13.1 H (10.0-12.5) sec INR 1.2 H (<1.2) D-Dimer (<0.60) mg/L FEU Carbon Dioxide 21 L (22-30) mmol/L BUN 36 H (9-20) mg/dL Creatinine 1.60 H (0.66-1.25) mg/dL Total Protein 6.1 L (6.3-8.2) g/dL Ur Specific Lind (1.001-1.035) 02/02/25 02/03/25 Range/Units 18:43 07:46 RBC (4.30-5.90) m/uL Hct (39.0-53.0) % MCHC (31.0-37.0) g/dL PT (10.0-12.5) sec INR (<1.2) D-Dimer 0.76 H (<0.60) mg/L FEU Carbon Dioxide (22-30) mmol/L BUN (9-20) mg/dL Creatinine (0.66-1.25) mg/dL Total Protein (6.3-8.2) g/dL Ur Specific Lind 1.040 H (1.001-1.035) Thrombosis Risk Factor Assmnt - Choose All That Apply Any of the Below Risk Factors Present?: Yes Each Factor Represents 1 point: Age 41-60 years, Obesity (BMI >25) Other Risk Factors: Yes Each Risk Factor Represents 3 Points: Family history of DVT/PE Other congenital or acquired thrombophilia - If yes, enter type in comment: No Thrombosis Risk Factor Assessment Total Risk Factor Score: 5 Thrombosis Risk Factor Assessment Level: High Risk
[2025-02-03] MEDS: CYCLOBENZAPRINE 10 MG TAB PO PRN (14:47)
[2025-02-03] MEDS: SERTRALINE 100 MG TAB PO SCH (15:38)
--- NOTE | 2025-02-03 16:51 | NM ---
EXAMINATION TYPE: NM pul vent and perfuse DATE OF EXAM: 02/03/2025 CLINICAL INDICATION: Male, 54 years old with history of elevated ddimer, syncope r/o PE, Creat 1.6; COMPARISON: NONE TECHNIQUE: Utilizing inhalation of 68.6 mCi Tc 99m DTPA aerosol and intravenous injection of 5.28 mC i of Tc 99m MAA, ventilation and perfusion images are acquired post injection in multiple projections . FINDINGS: Normal radiotracer distribution is noted in the lungs. There is no evidence of mismatched defects. IMPRESSION: No scintigraphic evidence for acute pulmonary embolism. [facility], , 02/03/2025 4:49 PM
[2025-02-03 17:06] LABS: Glucose,Whole Blood 79 mg/dL (70-110)
[2025-02-03] MEDS ORDERED: INSULIN LISPRO (HumaLOG) 100 UNIT/ML 10 mL VL SQ SCH (17:30)
--- NOTE | 2025-02-03 17:44 | US ---
EXAMINATION TYPE: US renals and bladder DATE OF EXAM: 02/03/2025 COMPARISON: CT 02/02/2021, CT 08/27/21 CLINICAL INDICATION: Male, 54 years old with history of Hypotension, chronic kidney disease rule out ATN; CKD. hypotension TECHNIQUE: Grayscale imaging of the bilateral kidneys and urinary bladder: FINDINGS: EXAM MEASUREMENTS: Right Kidney: 10.2 x 6.5 x 4.1 cm Left Kidney: 9.4 x 5.3 x 4.9 cm Limited exam due to patient body habitus, overlying bowel gas, and rib shadows Right Kidney: wnl as best seen Left Kidney: wnl as best seen Bladder: wnl Bilateral Jets seen: Yes There is no evidence for hydronephrosis at this point in time. No nephrolithiasis is seen. No rosamaria s are identified. The urinary bladder is adequately distended. IMPRESSION: Suboptimal study without hydronephrosis identified bilaterally. [facility], , 02/03/2025 5:42 PM
--- NOTE | 2025-02-03 17:48 | CA ---
Transthoracic Echo Report Name: Eduardo Glover Age: 54 Gender: M : 1970 Exam Date: 02/03/2025 15:02 Exam Location: [facility] Ht (in): 70 Wt (lb): 265 Ordering Physician: Tasha Decker Attending/Referring Phys: [id number], Brianne Brake Lining Finisher Yuli Enriquez RDCS Procedure CPT: Indications: LVF Cardiac Hx: Technical Quality: Good Contrast 1: Total Dose (mL): Contrast 2: Total Dose (mL): MEASUREMENTS (Male / Female) Normal Values 2D ECHO LV Diastolic Diameter PLAX 4.3 cm 4.2 - 5.9 / 3.9 - 5.3 cm LV Systolic Diameter PLAX 2.8 cm IVS Diastolic Thickness 1.1 cm 0.6 - 1.0 / 0.6 - 0.9 cm LVPW Diastolic Thickness 1.0 cm 0.6 - 1.0 / 0.6 - 0.9 cm LV Relative Wall Thickness 0.5 LVOT Diameter 2.2 cm LV Diastolic Volume MOD BP 88.8 cm??? 67 - 155 / 56 - 104 cm??? LV Systolic Volume MOD BP 34.0 cm??? 22 - 58 / 19 - 49 cm??? LV Ejection Fraction MOD BP 61.8 % >= 55 % LV Cardiac Index MOD BP 2053.7 cm???/min???m??? LV Diastolic Volume MOD 4C 78.5 cm??? LV Systolic Volume MOD 4C 29.2 cm??? LV Ejection Fraction MOD 4C 62.8 % LV Cardiac Index MOD 4C 1845.6 cm???/min???m??? LV Diastolic Length 4C 7.6 cm LV Systolic Length 4C 6.2 cm LV Diastolic Volume MOD 2C 92.5 cm??? LV Systolic Volume MOD 2C 36.5 cm??? LV Ejection Fraction MOD 2C 60.5 % LV Cardiac Index MOD 2C 2094.2 cm???/min???m??? LV Diastolic Length 2C 8.3 cm LV Systolic Length 2C 6.7 cm LA Volume 34.4 cm??? 18 - 58 / 22 - 52 cm??? LA Volume Index 13.9 cm???/m??? 16 - 28 cm???/m??? DOPPLER AV Peak Velocity 121.1 cm/s AV Peak Gradient 5.9 mmHg AV Mean Velocity 88.5 cm/s AV Mean Gradient 3.4 mmHg AV Velocity Time Integral 19.9 cm LVOT Peak Velocity 105.2 cm/s LVOT Peak Gradient 4.4 mmHg LVOT Velocity Time Integral 18.8 cm LVOT Stroke Volume 68.6 cm??? LVOT Stroke Volume Index 29.2 ml/m??? LVOT Cardiac Index 2567.7 cm???/min???m??? AV Area Cont Eq vti 3.5 cm??? AV Area Cont Eq pk 3.2 cm??? MV Area PHT 3.7 cm??? Mitral E Point Velocity 48.4 cm/s Mitral A Point Velocity 59.8 cm/s Mitral E to A Ratio 0.8 MV Deceleration Time 207.1 ms TR Peak Velocity 212.3 cm/s TR Peak Gradient 18.0 mmHg Right Atrial Pressure 10.0 mmHg Pulmonary Artery Systolic Pressu 28.0 mmHg Right Ventricular Systolic Press 28.0 mmHg PV Peak Velocity 87.2 cm/s PV Peak Gradient 3.0 mmHg FINDINGS Left Ventricle Left ventricular ejection fraction is estimated at 60-65 %. Left ventricular cavity size normal. No obvious regional wall motion abnormalities. Right Ventricle Normal right ventricular global systolic function. Right ventricular systolic pressure within normal limits. Right Atrium Normal right atrial size. Left Atrium Normal left atrial size. Mitral Valve Structurally normal mitral valve. No evidence for mitral valve prolapse. No mitral stenosis. Trace mitral regurgitation. Aortic Valve Trileaflet aortic valve. No aortic valve stenosis or regurgitation. Tricuspid Valve Structurally normal tricuspid valve. No tricuspid stenosis. Trace tricuspid regurgitation. Pulmonic Valve Structurally normal pulmonic valve. No pulmonic stenosis. No pulmonic regurgitation. Pericardium No pericardial effusion. Aorta Normal size aortic root and proximal ascending aorta. CONCLUSIONS 1. Normal left ventricular size and systolic function 2. Trace mitral and tricuspid regurgitation Previewed by: Dr. Prieto Valdes MD (Electronically Signed) Final Date: 03 February 2025 17:48
[2025-02-03] MEDS: INSULIN LISPRO (HumaLOG) 100 UNIT/ML 10 mL VL SQ SCH (18:47)
[2025-02-03] MEDS: ASPIRIN 325 MG TAB PO SCH (21:11)
[2025-02-03] MEDS: METOPROLOL TARTRATE 25 MG TAB PO SCH (21:11)
[2025-02-03] MEDS: ACETAMINOPHEN TAB 325 MG TAB PO PRN (23:49)
[2025-02-03] MEDS: LATANOPROST 0.005% OPHTH DROPS 2.5 ML BTL BOTH EYES SCH (23:50)
[2025-02-04 03:11] LABS: Chol/HDL Ratio 2.92 Ratio; LDL Cholesterol,Calculated 73.3 mg/dL (0.0-131.0); VLDL Calculation 17.48 mg/dL (5.00-40.00)
[2025-02-04 06:45] LABS: Glucose,Whole Blood 85 mg/dL (70-110)
--- NOTE | 2025-02-04 12:40 | P.PN ---
Subjective Progress Note Date: 02/04/25 Reason for Consult (text): Syncope, hypotension History of present illness: This is a 54-year-old male patient of Dr. NILA Donahue with past medical history of hypertension, hyperlipidemia, obesity s/p gastric bypass. We have been asked to evaluate the patient for syncope and hypotension. Patient states that he developed sharp pain in the left lower rib area it was worse with deep breathing and with moving. He first noticed it when he was picking up his granddaughter. He also had an episode walking out to his car when he fainted. He is not normally physically active. 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 Blood pressure 101/64, heart rate 66, pulse ox 96% on room air. Patient presented with a blood pressure as low as 72/53. -EKG: Sinus tachycardia 102 bpm -CTA chest, abdomen and pelvis: No evidence of dissection or aneurysm of the thoracic or abdominal aorta. Postsurgical changes of gastric bypass with no significant abnormality seen. -Carotid duplex: No hemodynamically significant stenosis. -Laboratory studies: WBC 9, hemoglobin 17, BUN 36 creatinine 1.6. Troponin negative x 1. Cepheid viral panel not detected. -Home cardiac medications: Aspirin 650 mg daily in the 325 mg at bedtime, Lipitor 20 mg daily, losartan 50 mg daily, Toprol-XL 25 mg daily. -Echocardiogram performed in the office on 12/20/2021: EF 55%, mild mitral regurgitation, mild tricuspid regurgitation, PASP 24 mmHg. -Lexiscan Cardiolite stress test performed 01/03/2022: By EKG criteria unremarkable Lexiscan stress test. Normal MPI with normal ejection fraction without stress-induced ischemia. 02/04 Patient seen and examined on the cardiac stepdown unit. Patient states he still has an ache in the left side which is the lower left ribs and left upper quadrant of the abdomen. Appears to be more muscular skeletal and not cardiac related. Patient denies any other symptoms. Otherwise he is feeling well. Blood pressure 128/76, heart rate 89, pulse ox 98% on room air. Echocardiogram reveals EF of 60 to 65%, trace mitral and tricuspid regurgitation. VQ scan revealed no evidence of pulmonary embolism. Physical examination: Gen: This is a obese black 54-year-old male in no acute distress VS: reviewed HEENT: Head is atraumatic, normocephalic. Pupils equal, round. Sclerae is anicteric. NECK: Supple. No JVD. LUNGS: Clear to auscultation. No wheezes or rhonchi. No intercostal retractions. HEART: Regular rate and rhythm. No murmur. ABDOMEN: Soft No tenderness. EXTREMITIES: No pedal edema. No calf tenderness. NEUROLOGICAL: Patient is awake, alert and oriented x3. Assessment: Syncope possibly due to pain or dehydration Hypotension Elevated D-dimer at 0.76, PE ruled out by VQ scan Left lower rib pain Acute kidney injury Hypertension history Hyperlipidemia Obesity status post gastric bypass Plan: Continue patient's home cardiac medications Hold losartan for hypotension No further cardiac workup at this time Patient may follow-up in the office with Dr. NILA Donahue for outpatient stress testing. Nurse practitioner note has been reviewed, I agree with documented findings and plan of care. Patient was seen and examined. Objective - Vital Signs Vital signs: Vital Signs Temp 98.1 F 02/04/25 04:00 Pulse 89 02/04/25 08:00 Resp 17 02/04/25 08:00 BP 128/76 02/04/25 08:00 Pulse Ox 98 02/04/25 08:00 FiO2 Intake & Output 02/03/25 02/04/25 02/04/25 18:59 06:59 18:59 Intake Total 1020 Balance 1020 Weight 120.202 kg 123.9 kg Intake: Oral 1020 Other: Voiding Method Toilet # Voids 1 - Labs CBC & Chem 7: 02/02/25 15:03 02/02/25 15:03 Labs: Abnormal Lab Results - Last 24 Hours (Table) 02/02/25 Range/Units 15:03 Hemoglobin A1c 6.5 H (<=6.0) %
[2025-02-04 14:24] LABS: Basophils % (A) 1 %; Eosinophils # (A) 0.5 k/uL (0-0.7); Eosinophils % (A) 9 %; HCT 41.1 % (39.0-53.0); Hypochromasia Slight; Lymphocytes # (A) 1.7 k/uL (1.0-4.8); Lymphocytes % (A) 29 %; MCHC 30.4 g/dL (31.0-37.0); MCV 85.3 fL (80.0-100.0); Mean Platelet Volume 6.9; Monocytes # (A) 0.4 k/uL (0-1.0); Monocytes % (A) 8 %; Neutrophils % (A) 52 %; Platelet Count 317 k/uL (150-450); RBC 4.82 m/uL (4.30-5.90); RDW 14.5 % (11.5-15.5); WBC 5.8 k/uL (3.8-10.6)
[2025-02-04 14:34] LABS: HGB 12.5 gm/dL (13.0-17.5)
[2025-02-04 14:47] LABS: African American GFR (CKD) >90 (>60 ml/min/1.73 sqM); Anion Gap 5 mmol/L; Blood Urea Nitrogen 20 mg/dL (9-20); Calcium 8.2 mg/dL (8.4-10.2); Carbon Dioxide 22 mmol/L (22-30); Chloride 109 mmol/L (98-107); Glucose 151 mg/dL (74-99); Non-African American GFR(CKD) >90 (>60 ml/min/1.73 sqM); Potassium 4.3 mmol/L (3.5-5.1); Sodium 136 mmol/L (137-145)
--- NOTE | 2025-02-04 15:27 | US ---
EXAMINATION TYPE: US venous doppler duplex LE LT DATE OF EXAM: 02/04/2025 1:11 PM Exam done portable COMPARISON: NONE CLINICAL INDICATION: Male, 54 years old with history of r/o dvt; Left leg swelling TECHNIQUE: The lower extremity deep venous system is examined utilizing real time linear array sonog charissa with graded compression, color doppler sonography, and spectral doppler. SIDE PERFORMED: Left FINDINGS: VESSELS IMAGED: Common Femoral Vein Deep Femoral Vein Greater Saphenous Vein * Femoral Vein Popliteal Vein Small Saphenous Vein * Proximal Calf Veins (* superficial vessels) Left Leg: Appears negative for DVT IMPRESSION: 1. No evidence of deep vein thrombosis of the left lower extremity. [facility], , 02/04/2025 3:24 PM
--- NOTE | 2025-02-04 16:35 | P.PN ---
Subjective Progress Note Date: 02/04/25 Progress note Patient name Eduardo Glover Date of service 02/04/2025 Location 356 bed 1 monitor floor telemetry. Patient initially presented to the emergency room felt [facility] with syncopal episode estimated by the patient 5 minutes however patient able to wake up and to still ride with his and to come to the emergency room. Patient stated that he was riding with his in her car she was the rail car driver and he felt pain in the left side of the upper abdomen, she told how about to g et out of the car and try to walk it off, patient stated he got out of the car and collapsed his got him up but he is not accurate on his estimation of the time. They brought him to the emergency room he was conscious alert and he checked his blood pressure was in the 80-86 systolic with the hypotension subsequently patient was also feeling dizzy and his creatinine went up to 1.6 with negative urine, Patient earlier of that day 3-hour earlier almost he donated plasma in the plasma center and 3 to 4-hour later he had this event In the hospital with his lab done they also did a CT scan of the chest abdomen and pelvis in the ER and was negative. Patient admitted to the hospital and hydrated as well as has several testing, echocardiogram, carotid duplex study, VQ scan to rule out PE All these above testing was negative and the monitor was also stable heart rate and with the hydration recovered and his renal function more than 90 GFR. Patient stated that he has pain in his left side still there with negative CAT scan I did digital exam and palpation and auscultation with no evidence of tenderness. He stated that his left leg was swollen 4 weeks ago and he thought blood clot but he never came to the office or seek any medical attention at that time. At this time patient sent to radiation department for ultrasound of the left leg to rule out DVT, especially when the PE was negative and mild elevation of D- dimer. The result also was negative. Currently Patient on exam: Conscious alert oriented x 3 ambulatory able to go to the bathroom no dizziness HEENT was negative normal eating and swallowing, pupil was equal reactive no lateralizing sign no history of head trauma Neck supple no JVD no thyromegaly no lymphadenopathy trachea midline Chest clear to auscultation percussion. Normal breath sound Heart regular sinus rhythm, vital signs stable no hypotension. Patient seen by cardiology and recommended to hold on lisinopril and to follow with his trustee of estate. Abdomen soft positive bowel sound morbidly obese with the history of gastric bypass. Extremities: He stated that he had history of swollen and thought of DVT the going to send him for ultrasound of the left leg to rule out any DVT, pulses is intact Neurologically stable no lateralizing sign no motor or sensory deficit Psychiatry he has history of depression and anxiety and bipolar he is following with [facility]. Assessment: 1. With the history of plasma disposition, 2. Dehydration 3. Acute kidney injury secondary to hypotension nonoliguric in association with dehydration recover with IV fluid rehydration with the renal function stable 4. Severe hypotension on admission to the ER however the echocardiogram indicating normal ejection fraction with only tricuspid regurg 5. Carotid duplex study was no hemodynamic significant stenosis. 6. VQ scan to rule out PE has been ruled out which was negative 7. Mild elevation of D-dimer and history of swelling of his left leg, left leg ultrasound negative for DVT. 8. Renal function recovered. With the EGFR more than 90. Plan: 1. Continue his medication except lisinopril per order of cardiology 2. DC IV fluid and replaced by hep well/pivil #3 Ambulate as tolerated in the hallway and monitor any symptom of dizziness or syncopal episode 4. If patient stable tomorrow we will send him home as negative testing. Objective - Vital Signs Vital signs: Vital Signs Temp 98.1 F 02/04/25 12:00 Pulse 86 02/04/25 12:00 Resp 16 02/04/25 14:00 BP 114/70 02/04/25 12:00 Pulse Ox 98 02/04/25 12:00 FiO2 Intake & Output 02/03/25 02/04/25 02/04/25 18:59 06:59 18:59 Intake Total 1020 240 Balance 1020 240 Weight 120.202 kg 123.9 kg Intake: Oral 1020 240 Other: Voiding Method Toilet # Voids 1 - Labs CBC & Chem 7: 02/04/25 14:11 02/04/25 14:11 Labs: Abnormal Lab Results - Last 24 Hours (Table) 02/02/25 02/04/25 02/04/25 Range/Units 15:03 14:11 14:11 Hgb 12.5 L D (13.0-17.5) gm/dL MCHC 30.4 L (31.0-37.0) g/dL Sodium 136 L (137-145) mmol/L Chloride 109 H (98-107) mmol/L Glucose 151 H (74-99) mg/dL Hemoglobin A1c 6.5 H (<=6.0) % Calcium 8.2 L (8.4-10.2) mg/dL
[2025-02-04 20:04] LABS: Glucose,Whole Blood 99 mg/dL (70-110)
[2025-02-05 04:48] VITALS: RESP 17
[2025-02-05 06:08] LABS: Glucose,Whole Blood 102 mg/dL (70-110)
[2025-02-05 09:26] VITALS: TEMP 98.1
--- NOTE | 2025-02-05 11:00 | P.PN ---
Subjective Progress Note Date: 02/05/25 Reason for Consult (text): Syncope, hypotension History of present illness: This is a 54-year-old male patient of Dr. NILA Donahue with past medical history of hypertension, hyperlipidemia, obesity s/p gastric bypass. We have been asked to evaluate the patient for syncope and hypotension. Patient states that he developed sharp pain in the left lower rib area it was worse with deep breathing and with moving. He first noticed it when he was picking up his granddaughter. He also had an episode walking out to his car when he fainted. He is not normally physically active. 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 Blood pressure 101/64, heart rate 66, pulse ox 96% on room air. Patient presented with a blood pressure as low as 72/53. -EKG: Sinus tachycardia 102 bpm -CTA chest, abdomen and pelvis: No evidence of dissection or aneurysm of the thoracic or abdominal aorta. Postsurgical changes of gastric bypass with no significant abnormality seen. -Carotid duplex: No hemodynamically significant stenosis. -Laboratory studies: WBC 9, hemoglobin 17, BUN 36 creatinine 1.6. Troponin negative x 1. Cepheid viral panel not detected. -Home cardiac medications: Aspirin 650 mg daily in the 325 mg at bedtime, Lipitor 20 mg daily, losartan 50 mg daily, Toprol-XL 25 mg daily. -Echocardiogram performed in the office on 12/20/2021: EF 55%, mild mitral regurgitation, mild tricuspid regurgitation, PASP 24 mmHg. -Lexiscan Cardiolite stress test performed 01/03/2022: By EKG criteria unremarkable Lexiscan stress test. Normal MPI with normal ejection fraction without stress-induced ischemia. 02/04 Patient seen and examined on the cardiac stepdown unit. Patient states he still has an ache in the left side which is the lower left ribs and left upper quadrant of the abdomen. Appears to be more muscular skeletal and not cardiac related. Patient denies any other symptoms. Otherwise he is feeling well. Blood pressure 128/76, heart rate 89, pulse ox 98% on room air. Echocardiogram reveals EF of 60 to 65%, trace mitral and tricuspid regurgitation. VQ scan revealed no evidence of pulmonary embolism. 02/05 Patient denies chest pain shortness of breath this stable. He had orthostatics done which were negative. Blood pressure 133/74, heart rate 92, pulse ox 99% on room air. No repeat blood work today. Physical examination: Gen: This is a obese black 54-year-old male in no acute distress VS: reviewed HEENT: Head is atraumatic, normocephalic. Pupils equal, round. Sclerae is anicteric. NECK: Supple. No JVD. LUNGS: Clear to auscultation. No wheezes or rhonchi. No intercostal retractions. HEART: Regular rate and rhythm. No murmur. ABDOMEN: Soft No tenderness. EXTREMITIES: No pedal edema. No calf tenderness. NEUROLOGICAL: Patient is awake, alert and oriented x3. Assessment: Syncope possibly due to pain or dehydration Hypotension Elevated D-dimer at 0.76, PE ruled out by VQ scan Left lower rib pain Acute kidney injury Hypertension history Hyperlipidemia Obesity status post gastric bypass Plan: Continue patient's home cardiac medications Hold losartan for hypotension No further cardiac workup at this time Patient may follow-up in the office with Dr. NILA Donahue for outpatient stress testing. Cardiology will sign off this case and follow on an as-needed basis. Please reconsult for any new concerns. Nurse practitioner note has been reviewed, I agree with documented findings and plan of care. Patient was seen and examined. Objective - Vital Signs Vital signs: Vital Signs Temp 98.1 F 02/05/25 08:45 Pulse 92 02/05/25 08:45 Resp 17 02/05/25 08:45 BP 133/74 02/05/25 08:45 Pulse Ox 99 02/05/25 08:45 FiO2 Intake & Output 02/04/25 02/05/25 02/05/25 18:59 06:59 18:59 Intake Total 360 800 118 Balance 360 800 118 Weight 125.4 kg Intake: Oral 360 800 118 Other: Voiding Method Toilet # Voids 1 - Labs CBC & Chem 7: 02/04/25 14:11 02/04/25 14:11 Labs: Abnormal Lab Results - Last 24 Hours (Table) 02/04/25 02/04/25 Range/Units 14:11 14:11 Hgb 12.5 L D (13.0-17.5) gm/dL MCHC 30.4 L (31.0-37.0) g/dL Sodium 136 L (137-145) mmol/L Chloride 109 H (98-107) mmol/L Glucose 151 H (74-99) mg/dL Calcium 8.2 L (8.4-10.2) mg/dL
[2025-02-05 11:48] LABS: Glucose,Whole Blood 67 mg/dL (70-110)
[2025-02-05 11:54] VITALS: BP 118/82; PULSE 71
[2025-02-05 12:06] LABS: Glucose,Whole Blood 80 mg/dL (70-110)
--- NOTE | 2025-02-05 12:10 | P.DS ---
Providers Date of admission: 02/02/25 18:18 Expected date of discharge: 02/05/25 Attending physician: Oscar Wild Consults: 02/02/25 18:17 Consult Physician Routine Consulting Provider: Robin Chan Consult Reason/Comments: syncope, hypotension Do you want consulting provider notified?: Yes Primary care physician: Oscar Wild Dictation discharge summary. Date of service 02/05/2025 Location radiation monitor 356 bed 1. Final Diagnosis on discharge: 1. History of syncopal episode as outpatient by patient history 2. Hypotension on admission. 3. Dehydration 4. RENETTA with nonoliguric secondary to hypotension and dehydration recovered with hydration 5. Diabetes mellitus type 2 borderline 6. Obesity with history of gastric bypass. 7. Recent history of donating plasma prior to the event of hypotension. 8. History of the use of Cialis for ED with probability of precipitating hypotension. 9. Hyperlipidemia controlled. 10. History of anxiety, depression, bipolar seen by [facility]. 11. Using eyedrops per balance engineer. 12. No evidence of DVT in the left lower extremities. Consultation solar sales associate Dr. Chan. Procedure done: 1. Echocardiogram 2. Carotid duplex study number 3. Ultrasound of the kidney bladder and ureter 4. Left lower extremities venous ultrasound. 5. VQ scan Presentation to the hospital Patient improved to the hospital by his in the car, with a history of syncopal episode. As well as left upper abdomen pain. In the ER he underwent CT scan of the chest abdomen pelvis was essentially negative. And he had laboratories on admission which was normal except renal function is creatinine 1.6. Cardiology consult requested in the ER. Patient seen by Dr. Chan and the nurse practitioner and he had echocardiogram, also patient has seen by myself with his evaluation and complaint carotid duplex study was negative as well As mentioned above patient had a CT scan of the chest abdomen and pelvis and was negative. Patient has history of gallbladder removal as well as gastric bypass and obesity On examination no significant tenderness on the ribs or the abdomen. And the CT was negative for obstruction as well Patient indicating that he had history of swelling of his legs and his D-dimer was mildly elevated and he underwent ultrasound to rule out blood clot which was negative As mentioned above carotid duplex study was negative, and the cardiology order VQ scan which also was negative. His blood pressure on admission in the ER was initially 87/61, 72/53 with the hypotension. And urine analysis was negative and creatinine was 1.6 suggestive of ATN with RENETTA secondary to hypotension and dehydration. Hospital course: Patient started on IV fluid 100 cc an hour and hydrated and for third testing was obtained and his laboratory indicating on date 02/04/2025, WBC 5.8 and hematocrit 41.1 with hemoglobin 12.5 and platelet count 317 Sodium 136, potassium 4.3, chloride 109, carbon oxide 22, creatinine 0.95, BUN 20, estimated glomerular filtration rate more than 94 -Spanish male. Blood glucose 151. And calcium 8.2 POC blood sugar at 11:30 AM on date 02/05/2025 before lunch was 67 advised to take the metformin after the meal as he was not eating at that time. On discharge exam: Patient conscious alert oriented x 3 ambulatory no specific complaint Head was normocephalic atraumatic, pupil equal reactive, conjunctiva was pink sclera was nonicteric Neck supple no JVD no thyromegaly no lymphadenopathy trachea midline Chest clear to auscultation and normal breath sound and no wheezes no rhonchi's. Heart regular sinus rhythm Abdomen soft obese positive bowel sound with a previous history of surgery has been checked by Dr. Rodriguez recently the surgeon. Extremities no edema positive pulses and ambulatory Neurologically stable no lateralizing sign. Psychiatry he has history of depression stable at this time and advised to see his psychiatrist. Patient stable general condition for discharge today vital sign on discharge 133 /74 mean blood pressure 93, oxygen saturation on room air 99, temperature 98.1 F oral heart rate 92 bpm and respiratory rate 17. Patient advised to follow-up with the cardiology To follow-up with psychiatry as well Plan to see him next week. Reconsideration of his medication discussed. Discharge home today Patient Condition at Discharge: Serious Plan - Discharge Summary Discharge Rx Participant: No New Discharge Prescriptions: New Metoprolol Tartrate [Lopressor] 25 mg PO BID #60 tab Continue Sertraline [Zoloft] 100 mg PO DAILY Multivit-Min/Folic/Vit K/Lycop [Men's Multivitamin Tablet] 1 tab PO DAILY Atorvastatin [Lipitor] 20 mg PO DAILY #30 tab Albuterol Inhaler [Ventolin Hfa Inhaler] 2 puff INHALATION RT-QID PRN #1 each PRN Reason: Shortness Of Breath Latanoprost [Latanoprost 0.005%] 1 drop BOTH EYES HS Cyclobenzaprine [Flexeril] 10 mg PO HS Aspirin EC [Ecotrin] 325 mg PO HS Omeprazole [PriLOSEC] 40 mg PO AC-BRKFST #30 cap Discontinued Losartan Potassium 50 mg PO DAILY Tamsulosin [Flomax] 0.4 mg PO DAILY Aspirin EC [Ecotrin] 650 mg PO DAILY Zinc Gluconate [Zinc] 100 mg PO BID Pepto-Bismol Tablet 262mg 524 mg PO Q1H PRN PRN Reason: Gi Upset tadalafiL 20 mg PO DAILY PRN PRN Reason: E.D. Metoprolol Succinate (ER) [Toprol Xl] 25 mg PO DAILY diphenhydrAMINE HCL [Benadryl] 50 mg PO HS Discharge Medication List Sertraline [Zoloft] 100 mg PO DAILY 12/25/16 [History] Multivit-Min/Folic/Vit K/Lycop [Men's Multivitamin Tablet] 1 tab PO DAILY 09/01/19 [History] Aspirin EC [Ecotrin] 325 mg PO HS 02/02/25 [History] Cyclobenzaprine [Flexeril] 10 mg PO HS 02/02/25 [History] Latanoprost [Latanoprost 0.005%] 1 drop BOTH EYES HS 02/02/25 [History] Albuterol Inhaler [Ventolin Hfa Inhaler] 2 puff INHALATION RT-QID PRN #1 each 02/05/25 [Rx] Atorvastatin [Lipitor] 20 mg PO DAILY #30 tab 02/05/25 [Rx] Metoprolol Tartrate [Lopressor] 25 mg PO BID #60 tab 02/05/25 [Rx] Omeprazole [PriLOSEC] 40 mg PO AC-BRKFST #30 cap 02/05/25 [Rx] Follow up Appointment(s)/Referral(s): Leslee Donahue MD [STAFF PHYSICIAN] - 1 Week Oscar Wild MD [Primary Care Provider] - 1-2 days
--- NOTE | 2025-02-07 21:46 | CDI ---
Documentation Clarification Form Date: 02/07/2025 09:20:26 PM From: Laura Mendiola Phone: Admit Date: 02/02/2025 06:18:00 PM Patient Name: Eduardo Glover Visit Number: [id number] Discharge Date: 02/05/2025 02:30:00 PM ATTENTION: The Clinical Documentation Specialists (CDI) and [facility] Coding Staff appreciate your assistance in clarifying documentation. Please respond to the clarification below the line at the bottom and electronically sign. The CDI & [facility] Coding staff will review the response and follow-up if needed. Please note: Queries are made part of the Legal Health Record. If you have any questions, please contact the author of this message via ITS. Doctor/Provider: Oscar Wild Unspecified CKD is documented per H&P. Additional clarification regarding the stage of CKD is requested. History/Risk Factors: 54yo M, Syncope, hypotension, dehydration, RENETTA, DMII, obesity, HLD, anxiety, depression, BPD, HTN, Hx gastric bypass Chronic kidney disease EGFR 56 with BUN 36 and creatinine 1.6. Baseline creatinine 1.1 and GFR was 80 admitted 03/18/2024 Clinical Indicators: BUN: 02/02 36 02/05 20 CR: 02/02 1.6 02/05 0.95 GFR: 02/02 48-56 02/04 >90 Right Kidney: 10.2 x 6.5 x 4.1 cm; Left Kidney: 9.4 x 5.3 x 4.9 cm Treatment: Urineanalysiswas negativeand creatinine was 1.6suggestive ofATNwithAKId/t hypotensionanddehydration. Please clarify the stage of the CKD, if known: Patient CKD Stage 1 Before. CKD Stage 2 [ ] CKD Stage 3a [ x ] Other, please specify ___hypovolemia and dehydration recovered with dehydration [ ] Unable to determine Reference: [employer] Stage 1 eGFR = 90 and kidney damage for =3 months Stage 2 eGFR 60-89 and kidney damage for =3 months Stage 3a eGFR 45-59 and kidney damage for =3 months Stage 3b eGFR 30-44 and kidney damage for =3 months Stage 4 eGFR 15-29 r and kidney damage for =3 months Stage 5 eGFR <15 and kidney damage for =3 months (Template last revised: November 2023) ___Secondary to dehydration and hypovolemia and hypotension patient recovered and his GFR more than 90 with the admission on acute kidney injury which is recovered with hydration as mentioned before [facility]
== END 2025-02-05 14:30 | disposition home or self-care (01) | DRG 684 ==
LOC: EC 14:20 → 3SCARD 18:18
PROVIDERS: ADMIT Internal Medicine; ATTEND Internal Medicine
DX: N17.9 Acute kidney failure, unspecified (principal); E11.9 Type 2 diabetes mellitus without complications; E66.01 Morbid (severe) obesity due to excess calories; F31.9 Bipolar disorder, unspecified; J44.9 Chronic obstructive pulmonary disease, unspecified; I07.1 Rheumatic tricuspid insufficiency; I10 Essential (primary) hypertension; E86.1 Hypovolemia; I95.9 Hypotension, unspecified; E86.0 Dehydration; E78.5 Hyperlipidemia, unspecified; N52.9 Male erectile dysfunction, unspecified; R55 Syncope and collapse; F41.9 Anxiety disorder, unspecified; Z68.39 Body mass index [BMI] 39.0-39.9, adult; Z98.84 Bariatric surgery status; Z79.82 Long term (current) use of aspirin; Z79.899 Other long term (current) drug therapy
CPT/HCPCS: 36415; 71275; 74174; 76770; 78582; 80048; 80053; 80061; 81003; 83036; 84484; 85025; 85379; 85610; 85730; 87636; 93005; 93306; 93880; 96360; 96361; 99291